=== PATIENT | female | born 1935 | race Caucasian/White ===

== ENCOUNTER 2020-09-12 17:16 | Emergency (ER) | payer MEDICARE, SELFPAY ==
--- NOTE | ~2020-09-12 | XR_ITS ---
EXAMINATION: XR KNEE, RIGHT CLINICAL INFORMATION: Fall with pain COMPARISON: None TECHNIQUE: Four views of the right knee. FINDINGS: Moderate-sized suprapatellar knee joint effusion. Tricompartmental degenerative changes seen more so in the lateral compartment where there is more significant joint space loss and subchondral sclerosis. Chondrocalcinosis is noted. I do not appreciate any acute superimposed fracture or dislocation on these degenerative changes. XR/XR knee RT 3V IMPRESSION: Tricompartmental degenerative changes without acute bony abnormality.
--- NOTE | ~2020-09-12 | XR_ITS ---
EXAMINATION: XR RIBS, RIGHT CLINICAL INFORMATION: Fall with right chest pain COMPARISON: None TECHNIQUE: 3 views of the right ribs were obtained. FINDINGS: Lungs are clear. No consolidation, pneumothorax, or pleural effusion. The cardiomediastinal silhouette and pulmonary vasculature are normal. Osseous structures are unremarkable. Ribs are intact. No displaced rib fractures are identified. XR/XR ribs RT min 3V w CXR1V IMPRESSION: No displaced rib fractures seen.
[2020-09-12 17:28] VITALS: BP 132/80; PULSE 82; RESP 16; TEMP 36.6; O2SAT 98; BMI 25.6
--- NOTE | 2020-09-12 17:47 | ED_ITS ---
HPI - Fall General Chief Complaint: Fall Stated Complaint: right sided pain/fall Time Seen by Provider: 09/12/20 17:45 Source: patient and EMS Mode of arrival: EMS Limitations: no limitations History of Present Illness HPI Narrative: 85-year-old female came in by ambulance for evaluation after fall. Patient lives home alone and usually ambulate with a cane at home, patient felt dizzy and lost balance fell down landing on her right side then the TV fell down but did not fall on her, patient declined any LOC before or after the fall, no head injury, no neck pain. Patient only complains of right side chest pain, and right knee pain. Patient was able to ambulate after the fall. Related Data Allergies Allergy/AdvReac Type Severity Reaction Status Date / Time No Known Allergies Allergy Verified 09/12/20 17:45 Review of Systems Review of Systems: All other systems are reviewed and are negative Constitutional: Reports as per HPI and Reports no additional constitutional complaints Eyes: Reports as per HPI and Reports no additional eye complaints Reports system reviewed and no additional complaints, except as documented Cardiovascular: Reports as per HPI and Reports no additional cardiovascular complaints Respiratory: Reports as per HPI and Reports no additional respiratory complaints Gastrointestinal: Reports as per HPI and Reports no additional gastrointestinal complaints Genitourinary: Reports no additional female genitourinary complaints Musculoskeletal: Reports no additional musculoskeletal complaints Skin/Breast: Reports system reviewed and no additional complaints, except as docu Psychiatric: Reports no additional psychiatric complaints Endocrine: Reports no additional endocrine complaints Hematologic/Lymphatic: Reports no additional hematologic/lymphatic complaints Allergic/Immunologic: Reports no additional allergic/immunologic complaints Reports system reviewed and no additional complaints, except as documented and Reports Abnormal speech present Physical Exam Vital Signs: Vital Signs: Last Vital Signs Temp 98 F 09/12/20 17:28 Pulse 69 09/12/20 18:44 Resp 18 09/12/20 18:44 BP 132/71 09/12/20 18:44 Pulse Ox 99 09/12/20 18:44 Body Mass Index 25.6 Vital signs have been reviewed as appeared to be correct. Blood pressure normal. Heart rate normal. Respiration rate normal. Temperature normal. Oxygen saturation normal. Appearance: Alert. Oriented X3. No acute distress. Head: Normal external exam. Normocephalic. Atraumatic. No Edmonds signs noted. No raccoon eyes noted Eyes: PERRLA. EOMI. Conjunctiva and sclera normal. Eyelids normal. ENT: TM's Normal. Pharynx normal. Uvula midline. Moist mucous membranes. No trismus noted. No drooling noted. No muffled voice noted. Neck: Normal inspection. Neck supple. FROM. No adenopathy. Thyroid Normal. No meningeal signs. No neck mass noted. CVS: Normal heart rate and rhythm. Heart sound normal. No murmurs noted. Pulses normal throughout. Respiratory: No respiratory distress. Painless inspiration. Breath sounds normal. No wheezes/rales/rhonchi noted. Right-sided chest tenderness, no step- off, no deformity. No accessory muscle usage noted or decreased air movement n oted. Abdomen: Soft and nontender. Bowel sounds normal in all 4 quadrants. No distention noted. No organomegaly noted. No visible injury noted. Back: No CVA tenderness. Full range of motion noted. Skin: Skin warm and dry. Normal skin color. Normal skin turgor. No rashes/lesions/lacerations noted. Extremities: Right knee tenderness, full range of motion but limited due to pain, no deformity, no step-off. Neuro: Oriented X 3. No motor deficit. No sensory deficit. Reflexes normal. Course Course Course Narrative: Assessment and plan. 85-year-old female came in after sustained a mechanical fall landing on her right side of the body only, patient has a right chest wall contusion right knee contusion. X-ray showed no acute fracture, patient able to ambulate in the emergency department normally using her cane. MDM - Fall Imaging Data Right knee x-ray: Radiologist's impression: Tricompartmental degenerative changes without acute bony abnormality. ? Right ribs/chest x-ray: Radiologist's impression: Lungs are clear. No consolidation, pneumothorax, or pleural effusion. The cardiomediastinal silhouette and pulmonary vasculature are normal. Osseous structures are unremarkable. Ribs are intact. No displaced rib fractures are identified. Discharge Plan Discharge Clinical Impression: Fall, Chest wall contusion, Contusion of knee, right Patient Disposition: Home, Self-Care Instructions: Contusion in Adults (ED) Additional Instructions: Follow-up with your PCP.
[2020-09-12 18:44] VITALS: BP 132/71; PULSE 69; RESP 18; O2SAT 99
[2020-09-12] MEDS: Acetaminophen 325 MG TABLET PO (18:48)
--- NOTE | 2020-09-12 18:49 | PC.NURSE ---
assumd care of patient from jesus addison. Client in bed. pending x ray results. cheif complaint of right rib pain right knee pain post fall. vitals wnl. nuero intact.
--- NOTE | 2020-09-12 19:19 | PC.NURSE ---
PT AMBULATED WITH CANE WITH PAIN BUT AMBULATED WILL. VISUALIZED BY DR LMA.
--- NOTE | 2020-09-12 19:37 | PC.NURSE ---
discussed with dr carrington that client was confused. client did not recall getting yrui bandage on right knee. Client stated she did not want rehab. Dr carrington feels comfortable sending client home without anyone at home.
== END 2020-09-12 19:37 | disposition home or self-care (01) ==
LOC: HO.ED 19:19
PROVIDERS: Emergency Provider Emergency Medicine
DX: S20.213A Contusion of bilateral front wall of thorax, initial encounter (principal); S80.01XA Contusion of right knee, initial encounter; M25.561 Pain in right knee; R07.81 Pleurodynia; W01.190A Fall on same level from slipping, tripping and stumbling with subsequent striking against furniture, initial encounter; Y93.9 Activity, unspecified; Y92.009 Unspecified place in unspecified non-institutional (private) residence as the place of occurrence of the external cause; Y99.9 Unspecified external cause status; Z79.899 Other long term (current) drug therapy
CPT/HCPCS: 71101; 73562; 99284

== ENCOUNTER 2020-11-19 08:05 | Emergency (ER) | payer MEDICARE, SELFPAY ==
--- NOTE | ~2020-11-19 | CT_ITS ---
EXAMINATION: CT ABDOMEN AND PELVIS WITH CONTRAST CLINICAL INFORMATION: Painless hematuria. COMPARISON: None TECHNIQUE: Multidetector volumetric images were obtained from the superior aspect of the liver through the pubic symphysis following administration 85 mL of Omnipaque 350 intravenous contrast. Sagittal and coronal reformatted images were obtained on the technologist's workstation. This CT examination was performed using dose optimization techniques as appropriate, variously including the following: *Automated exposure control *Adjustment of mA and/or kV according to patient size (this includes techniques or standardized protocols for targeted exams where dose is matched to indication/reason for exam; i.e. extremities or head) *Use of iterative reconstruction technique DLP: 411 mGy-cm FINDINGS: LUNG BASES: Hazy opacity of minimal atelectasis in dependent aspect of each lower lobe. There are a few scattered linear opacities of scarring or atelectasis at the bases. No consolidation or pleural effusion. HEPATOBILIARY: Liver has normal size and contour. Small, 0.2 cm calcification (consistent with granuloma) is observed near the hepatic dome. No suspicious liver lesion or intrahepatic bile duct dilatation. Gallbladder is not definitively seen. Correlate for history of cholecystectomy. There appears to be minimal pneumobilia in the region of the cystic duct. PANCREAS: Pancreas is atrophied. No edema, pancreatic ductal dilatation or mass. SPLEEN: Normal. ADRENAL GLANDS: Normal. KIDNEYS AND URETERS: The kidneys a normal in size and enhance symmetrically. No solid mass or perinephric fluid. No urolithiasis or hydroureteronephrosis. The ureters are grossly normal. BLADDER: Normal. No calculi or wall thickening. BOWEL AND PERITONEUM: No dilated bowel loops. Diverticula of the descending and sigmoid colon without diverticulitis. The appendix is identified; however, no inflammatory changes in the right lower quadrant. No ascites or pneumoperitoneum. ABDOMINAL WALL: Unremarkable. VASCULATURE: Atherosclerotic calcification of the abdominal aorta without aneurysm. LYMPH NODES: No pathologic sized lymph nodes in the abdomen or pelvis. No inguinal lymphadenopathy. PELVIC VISCERA: The uterus and adnexa are unremarkable. No pelvic mass or free fluid. SKELETAL: Bones appear to be diffusely osteoporotic. Mild dextrocurvature of the mildly degenerated lumbar spine CT/CT abdomen pelvis w con IMPRESSION: * No specific source of hematuria is identified. No evidence of nephrolithiasis, hydronephrosis or urinary tract tumor. * Diverticulosis of the descending and sigmoid colon without diverticulitis. * Gallbladder is not well seen. It could be completely collapsed or surgically absent. Correlate for history of cholecystectomy. There appears to be minimal pneumobilia in the expected location of the cystic duct.
[2020-11-19 08:12] VITALS: BP 140/90; PULSE 70; O2SAT 95
[2020-11-19 08:17] VITALS: BP 129/64; PULSE 61; RESP 18; TEMP 36.5; O2SAT 95; BMI 23.1
[2020-11-19 09:01] VITALS: BP 114/65; PULSE 59
[2020-11-19 09:08] LABS: MANUAL DIFF FLAG NO
[2020-11-19 09:09] LABS: Basophils Percent Auto 0.4 % (0-2); Eosinophils Absolute Auto 0.2 X10*3/uL (0.0-0.4); Eosinophils Percent Auto 3.4 % (0-4); Imm Gran Abs Auto 0.01 X10*3/uL (0.00-0.03); Imm Gran Pct Auto 0.2 % (0.0-0.4); Lymphocytes Absolute Auto 1.4 X10*3/uL (1.2-4.9); Lymphocytes Percent Auto 27.6 % (20-40); Mean Corpuscular HGB Conc 31.3 g/dl (31.0-35.0); Mean Corpuscular Hemoglobin 28.4 pg (27.0-33.0); Mean Corpuscular Volume 90.9 fL (80-98); Mean Platelet Volume 8.6 fL (9.4-12.3); Monocytes Absolute Auto 0.4 X10*3/uL (0.1-1.2); Monocytes Percent Auto 8.7 % (2-11); Neutrophils Percent Auto 59.7 % (45-73); Platelet Count 272 X10*3/uL (160-400); Red Blood Count 3.52 X10*6/uL (4.20-5.50); Red Cell Distribution Width 18.4 % (11.0-16.0)
[2020-11-19 09:16] LABS: INTERNATIONAL NORM RATIO 1.1 (0.9-1.1); Prothrombin Time 12.7 SEC (9.9-13.0)
[2020-11-19 09:28] LABS: Alanine Aminotransferase 8 U/L (0-31); Albumin Level 3.5 g/dL (3.5-5.0); Alkaline Phosphatase 55 U/L (39-117); Anion Gap 11 (12-20); Aspartate Amino Transferase 21 U/L (5-31); Bilirubin Total 0.4 mg/dL (0.0-1.0); Blood Urea Nitrogen 5 mg/dL (9-16); Calcium 8.4 mg/dL (8.4-10.2); Carbon Dioxide 28 mmol/L (22-29); Chloride 104 mmol/L (96-108); Creatinine Clr Calc Pharmacy 41.9; Estimated Glomerular Filt Rate > 60; Glucose Random 90 mg/dL (60-115); Magnesium 2.2 mg/dL (1.6-2.6); Potassium 3.7 mmol/L (3.3-5.1); Sodium 139 mmol/L (135-145); Total Protein 6.9 g/dL (6.5-8.0)
[2020-11-19 09:41] VITALS: BP 124/66; PULSE 62
--- NOTE | 2020-11-19 09:42 | PC.NURSE ---
Pt oob to give urine sample. Urine appears pale yellow but juan carlos blood noted in toilet. Viable hemorrhoids from rectum. When rectal area is wiped there is bright red blood. Pt denies pain.
[2020-11-19 09:57] LABS: Appearance Urine HAZY; Color Urine STRAW; Glucose Urine UA NEG (NEG); Leukocyte Esterase Urine NEG (NEG); Nitrite Urine NEG (NEG); PH 7.5 (5.0-8.0); Specific Gravity - Urine <= 1.005 (1.005-1.025); UACC Culture Trigger NO; Urine Blood 1+ (NEG); Urine Ketones NEG (NEG); Urine Protein NEG (NEG-TRACE)
[2020-11-19 10:06] LABS: WBC Urine 0-2 /HPF (0-4)
[2020-11-19 10:07] LABS: Bacteria Urine 2+ /LPF; RBC Urine 0-2 /HPF (0); Squamous Epithelial Cell Urine 4+ /LPF
[2020-11-19] MEDS: iohexoL 350 MG/ML 100 ML INFUS..BTL 85 ML IV (10:59)
[2020-11-19] MEDS: ALPRAZolam 0.5 MG TABLET PO (11:08)
[2020-11-19 11:11] VITALS: BP 116/62; PULSE 63; RESP 18; TEMP 36.6; O2SAT 95
--- NOTE | 2020-11-19 11:11 | PC.NURSE ---
patient a&ox3, vss, pt medicated per order for anxiety, call james within reach, will continue to monitor.
--- NOTE | 2020-11-19 11:15 | ED_ITS ---
HPI - GI Bleed General Chief complaint: Urogenital-Female Stated complaint: BLOOD IN URINE Time Seen by Provider: 11/19/20 08:35 Source: patient Mode of arrival: ambulatory Limitations: no limitations History of Present Illness HPI Narrative: 85-year-old female to the ED with complaints of hematuria versus GI bleed that she noted last night. She reports that last night she woke up to urinate and she noted she had blood in her underwear and when she urinated she had bright red blood in the toilet. She reports she has a history of hemorrhoids although she does not believe they have been bleeding recently and s he is unsure if it is from her hemorrhoids or vaginal bleeding. She denies any fevers, dizziness, headaches, neck pain/stiffness, chest pain or shortness of breath, dyspnea on exertion, orthopnea, palpitations, abdominal pain, back pain, dysuria, black or bloody stools, weakness, recent travel or sick contacts or any other symptoms complaints or concerns at this time. She denies being on any blo od thinners. MD complaint: other (Hematuria versus GI bleed) Onset (ago): hour(s) (Since last night) Pain Consistency: constant Severity: mild Exacerbating factors: other (Urination) Associated symptoms: denies other symptoms Treatments Prior to Arrival: none Related Data Allergies Allergy/AdvReac Type Severity Reaction Status Date / Time No Known Allergies Allergy Verified 11/19/20 08:49 Review of Systems Review of Systems: Constitutional : No Weight loss, No Fever, No Chills, No Night Sweats, No Fatigue, NoMalaise ENT/Mouth: No ear pain, No sore throat, No Difficulty swallowing Cardiovascular : No Chest Pain, No SOB, No Dyspnea on Exertion, No Orthopnea, NoEdema, No Palpitations Respiratory : No Cough, No Sputum, No Wheezing, No Dyspnea Gastrointestinal : Positive hematuria versus rectal bleeding, No Nausea, No Vomiting, No abdominal pain, No Diarrhea, No blood streaked emesis, No coffee- ground emesis, No gross hematemesis, No blood streak stool, No gross hemato chezia, No Melena Genitourinary : No irregular bleeding, No Dysuria, No Urinary Frequency, No Urinary Incontinence, No Urgency, No Flank Pain Musculoskeletal : No joint pain, No Myalgias, No Joint Swelling Skin : No Skin Lesions, No rash Neuro : No Weakness, No Numbness, No Paresthesias, No Loss of Consciousness, NoDizziness, No Headache Psych : No Social Issues, Heme/Lymph: No Bruising, No Bleeding,No Lymphadenopathy Endocrine : No Polyuria, No Polydipsia, No Temperature Intolerance Yes all other systems are reviewed and are negative [facility] Past Medical History Attestation statement: The following information was validated with the patient. Social History Social History Alcohol intake: never Patient Tobacco Use Status: Former Tobacco user Use of substances other than those prescribed or required for medical reasons: No Advance Directives: No Advance Directives Information Provided: No Physical Exam Vital Signs: Vital Signs: Last Vital Signs Temp 97.9 F 11/19/20 11:11 Pulse 63 11/19/20 11:11 Resp 18 11/19/20 11:11 BP 116/62 11/19/20 11:11 Pulse Ox 95 11/19/20 11:11 Body Mass Index 23.1 vital signs have been reviewed as normal and appeared to be correct. Blood pressure normal. Heart rate normal. Respiration rate normal. Temperature normal. Oxygen saturation normal. Appearance: Alert. Oriented X3. No acute distress. Head: Normal external exam. Normocephalic. Eyes: PERRLA. EOMI. Conjunctiva and sclera normal. Eyelids normal. ENT: Pharynx normal. Uvula midline. Moist mucous membranes. Neck: Normal inspection. Neck supple. FROM. No adenopathy. No meningeal signs. CVS: Normal heart rate and rhythm. Heart sound normal. No murmurs noted. Pulses normal throughout. Respiratory: No respiratory distress. Painless inspiration. Breath sounds normal. No wheezes/rales/rhonchi noted. Chest nontender. No accessory muscle usage noted or decreased air movement noted. Abdomen: Soft and nontender. Nondistended. No guarding. No rigidity. Bowel sounds normal in all 4 quadrants. No distention noted. No organomegaly noted. No visible injury noted. No rebound tenderness. Negative Rovsing sign. Negative obturator's sign. Negative psoas sign. Negative Pinzon sign. : Exam patient noted to have external hemorrhoids they do not appear thrombosed or incarcerated and there is no active bleeding or foreign bodies noted. Back: No CVA tenderness. Full range of motion noted. Skin: Skin warm and dry. Normal skin color. Normal skin turgor. No rashes/lesions/lacerations noted. Extremities: Extremities exhibit normal range of motion. Extremities nontender. Neuro: Oriented X 3. No motor deficit. No sensory deficit. Reflexes normal. Normal steady gait. Course Course Course Narrative: 8:45am - 85-year-old female to the ED with complaints of hematuria versus GI bleed that she noted last night. She reports that last night she woke up to urinate and she noted she had blood in her underwear and when she urinated she had bright red blood in the toilet. She reports she has a history of hemorrhoids although she does not believe they have been bleeding recently and she is unsure if it is from her hemorrhoids or vaginal bleeding. Plan: Labs, UA, stool occult, CT scan abdomen pelvis with IV contrast and re- evaluate. Reevaluation(s) Reevaluation #1: - labs return patient with anemia with an H&H of 10/32 no comparisons in our system - anion gap 11. BUN 5. Otherwise all other labs are within normal limits. UA revealed +1 blood otherwise no evidence of UTI. - Stool occult is pending at this time. - CT scan abdomen pelvis with IV contrast revealed minimal pneumobilia the expected location of the cystic duct and the gallbladder is not well seen otherwise no other acute processes - therefore I went in and re-evaluated the patient and she again does not have any tenderness to the abdomen at all. Her abdomen is soft and nontender. And she denies ever having her gallbladder removed and I do not see any surgical scars on her abdomen. - therefore consulted with Dr. Townsend the general surgeon to see the sign ificant of minimal pneumobilia the expected location of the cystic duct if the patient is not having any abdominal pain she does not have an elevated white blood cell count. - also will recheck the CBC to evaluate if the patient's anemia is getting worse as she has been here for 4 hours or more at this time. She does not have any active vaginal bleeding, hematuria or GI bleeding at this time. Time: 12:30 Reevaluation #2: - patient's repeat H&H has improved her hemoglobin/hematocrit is now 10.7/33.8 - patient is no longer bleeding rectally - I spoke to Dr. Townsend about her CT scan and he reported that this is just an incidental finding that there is nothing that we need to do at this time for her incidental finding as she does not have an elevated white blood cell count, she is not having any abdominal pain therefore will have her follow up - patient will have to follow up with GI for further evaluation treatment although is stable to be discharged at this time as she has been up working without any complaints of dizziness or shortness of breath her vitals are stable within normal limits her labs are within normal limits and she is no longer bleeding at this time therefore she is requesting to be discharged. Will DC home with instructions to return if any new or worsening symptoms and to follow- up with PCP/GI. Patient understands agrees with this plan. Time: 13:37 [facility] - GI Bleed Medical Records Attestation: I reviewed the patient's medical records. Lab Data Attestation: I reviewed the patient's lab results. Result diagrams: 11/19/20 12:50 11/19/20 09:00 Labs: Lab Results 11/19/20 11/19/20 11/19/20 Range/Units 09:00 09:00 09:00 WBC 5.0 (4.8-10.8) X10*3/uL RBC 3.52 L (4.20-5.50) X10*6/uL Hgb 10.0 L (12.0-16.0) g/dl Hct 32.0 L (37-47) % MCV 90.9 (80-98) fL MCH 28.4 (27.0-33.0) pg MCHC 31.3 (31.0-35.0) g/dl RDW 18.4 H (11.0-16.0) % Plt Count 272 (160-400) X10*3/uL MPV 8.6 L (9.4-12.3) fL Immature Gran % (Auto) 0.2 (0.0-0.4) % Neut % (Auto) 59.7 (45-73) % Lymph % (Auto) 27.6 (20-40) % [place] % (Auto) 8.7 (2-11) % Eos % (Auto) 3.4 (0-4) % Baso % (Auto) 0.4 (0-2) % Lymph # (Auto) 1.4 (1.2-4.9) X10*3/uL [place] # (Auto) 0.4 (0.1-1.2) X10*3/uL Eos # (Auto) 0.2 (0.0-0.4) X10*3/uL Baso # (Auto) 0.0 (0.0-0.2) X10*3/uL Abs Immat Gran (auto) 0.01 (0.00-0.03) X10*3/uL Absolute Neuts (auto) 3.0 (2.0-8.3) X10*3/uL Absolute Nucleated RBC 0.000 (0.0-0.012) X10*3/uL Nucleated RBC % (auto) 0.0 (0.0-0.2) /100WBC PT 12.7 (9.9-13.0) SEC INR 1.1 (0.9-1.1) Sodium 139 (135-145) mmol/L Potassium 3.7 (3.3-5.1) mmol/L Chloride 104 (96-108) mmol/L Carbon Dioxide 28 (22-29) mmol/L Anion Gap 11 L (12-20) BUN 5 L (9-16) mg/dL Creatinine 0.79 (0.5-1.4) mg/dL Estim Creat Clear Calc 41.9 Estimated GFR > 60 Random Glucose 90 (60-115) mg/dL Calcium 8.4 (8.4-10.2) mg/dL Magnesium 2.2 (1.6-2.6) mg/dL Total Bilirubin 0.4 (0.0-1.0) mg/dL AST 21 (5-31) U/L ALT 8 (0-31) U/L Alkaline Phosphatase 55 (39-117) U/L Total Protein 6.9 (6.5-8.0) g/dL Albumin 3.5 (3.5-5.0) g/dL Urine Color Urine Appearance Urine pH (5.0-8.0) Ur Specific [place] (1.005-1.025) Urine Protein (NEG-TRACE) MG/DL Urine Glucose (UA) (NEG) MG/DL Urine Ketones (NEG) MG/DL Urine Blood (NEG) Urine Nitrite (NEG) Ur Leukocyte Esterase (NEG) Urine RBC (0) /HPF Urine WBC (0-4) /HPF Ur Squamous Epith Cells /LPF Urine Bacteria /LPF Stool Occult Blood (NEGATIVE) 11/19/20 11/19/20 11/19/20 Range/Units 09:42 12:50 13:37 WBC 5.7 (4.8-10.8) X10*3/uL RBC 3.72 L (4.20-5.50) X10*6/uL Hgb 10.7 L (12.0-16.0) g/dl Hct 33.8 L (37-47) % MCV 90.9 (80-98) fL MCH 28.8 (27.0-33.0) pg MCHC 31.7 (31.0-35.0) g/dl RDW 18.6 H (11.0-16.0) % Plt Count 295 (160-400) X10*3/uL MPV 8.7 L (9.4-12.3) fL Immature Gran % (Auto) 0.3 (0.0-0.4) % Neut % (Auto) 58.3 (45-73) % Lymph % (Auto) 29.4 (20-40) % [place] % (Auto) 8.4 (2-11) % Eos % (Auto) 3.1 (0-4) % Baso % (Auto) 0.5 (0-2) % Lymph # (Auto) 1.7 (1.2-4.9) X10*3/uL [place] # (Auto) 0.5 (0.1-1.2) X10*3/uL Eos # (Auto) 0.2 (0.0-0.4) X10*3/uL Baso # (Auto) 0.0 (0.0-0.2) X10*3/uL Abs Immat Gran (auto) 0.02 (0.00-0.03) X10*3/uL Absolute Neuts (auto) 3.3 (2.0-8.3) X10*3/uL Absolute Nucleated RBC 0.000 (0.0-0.012) X10*3/uL Nucleated RBC % (auto) 0.0 (0.0-0.2) /100WBC PT (9.9-13.0) SEC INR (0.9-1.1) Sodium (135-145) mmol/L Potassium (3.3-5.1) mmol/L Chloride (96-108) mmol/L Carbon Dioxide (22-29) mmol/L Anion Gap (12-20) BUN (9-16) mg/dL Creatinine (0.5-1.4) mg/dL Estim Creat Clear Calc Estimated GFR Random Glucose (60-115) mg/dL Calcium (8.4-10.2) mg/dL Magnesium (1.6-2.6) mg/dL Total Bilirubin (0.0-1.0) mg/dL AST (5-31) U/L ALT (0-31) U/L Alkaline Phosphatase (39-117) U/L Total Protein (6.5-8.0) g/dL Albumin (3.5-5.0) g/dL Urine Color STRAW Urine Appearance HAZY Urine pH 7.5 (5.0-8.0) Ur Specific [place] <= 1.005 (1.005-1.025) Urine Protein NEG (NEG-TRACE) MG/DL Urine Glucose (UA) NEG (NEG) MG/DL Urine Ketones NEG (NEG) MG/DL Urine Blood 1+ H (NEG) Urine Nitrite NEG (NEG) Ur Leukocyte Esterase NEG (NEG) Urine RBC 0-2 (0) /HPF Urine WBC 0-2 (0-4) /HPF Ur Squamous Epith Cells 4+ /LPF Urine Bacteria 2+ /LPF Stool Occult Blood POSITIVE (NEGATIVE) Imaging Data CT scan abdomen pelvis with IV contrast: Attestation: I personally reviewed and interpreted this imaging study as follows: Radiologist's impression: FINDINGS: LUNG BASES: Hazy opacity of minimal atelectasis in dependent aspect of each lower lobe. There are a few scattered linear opacities of scarring or atelectasis at the bases. No consolidation or pleural effusion.? HEPATOBILIARY: Liver has normal size and contour. Small, 0.2 cm calcification (consistent with granuloma) is observed near the hepatic dome. No suspicious liver lesion or intrahepatic bile duct dilatation. Gallbladder is not definitively seen. Correlate for history of cholecystectomy. There appears to be minimal pneumobilia in the region of the cystic duct. PANCREAS: Pancreas is atrophied. No edema, pancreatic ductal dilatation or mass.? SPLEEN: Normal.? ADRENAL GLANDS: Normal.? KIDNEYS AND URETERS: The kidneys a normal in size and enhance symmetrically. No solid mass or perinephric fluid. No urolithiasis or hydroureteronephrosis. The ureters are grossly normal. BLADDER:? Normal. No calculi or wall thickening. BOWEL AND PERITONEUM: No dilated bowel loops. Diverticula of the descending and sigmoid colon without diverticulitis. The appendix is identified; however, no inflammatory changes in the right lower quadrant. No ascites or pneumoperitoneum. ABDOMINAL WALL: Unremarkable.? VASCULATURE: Atherosclerotic calcification of the abdominal aorta without aneurysm. LYMPH NODES: No pathologic sized lymph nodes in the abdomen or pelvis. No inguinal lymphadenopathy. PELVIC VISCERA: The uterus and adnexa are unremarkable. No pelvic mass or free fluid. SKELETAL: Bones appear to be diffusely osteoporotic. Mild dextrocurvature of the mildly degenerated lumbar spine? CT/CT abdomen pelvis w con IMPRESSION: *? No specific source of hematuria is identified. No evidence of nephrolithiasis, hydronephrosis or urinary tract tumor. *? Diverticulosis of the descending and sigmoid colon without diverticulitis. *? Gallbladder is not well seen. It could be completely collapsed or surgically absent. Correlate for history of cholecystectomy. There appears to be minimal pneumobilia in the expected location of the cystic duct. Critical Care Time Critical Care Time Critical Care Time: Yes Total Critical Care Time: 60 Attestation: I personally attest to this time spent taking care of the patient Discharge Plan Discharge Clinical Impression: Occult GI bleeding, Anemia Patient Disposition: Home, Self-Care Instructions: Anemia (ED), [facility] (DC) Referrals: Cris Guillen MD [Physician] - 2 days Physician,Unknown J [Primary Care Provider] - 2 days (your pcp) Interventions: ED Discharge Assessment Last Done: 11/19/20 14:24 Discharge Date/Time: 11/19/20 14:26 Print Language: Chadian
--- NOTE | 2020-11-19 11:57 | PC.NURSE ---
assisted the patient going to the bathroom and the patient did not bled. She wa excited that this may be a sign that she may be getting better.
[2020-11-19 12:56] LABS: MANUAL DIFF FLAG NO
[2020-11-19 12:57] LABS: Basophils Percent Auto 0.5 % (0-2); Eosinophils Absolute Auto 0.2 X10*3/uL (0.0-0.4); Eosinophils Percent Auto 3.1 % (0-4); Hematocrit 33.8 % (37-47); Hemoglobin 10.7 g/dl (12.0-16.0); Imm Gran Abs Auto 0.02 X10*3/uL (0.00-0.03); Imm Gran Pct Auto 0.3 % (0.0-0.4); Lymphocytes Absolute Auto 1.7 X10*3/uL (1.2-4.9); Lymphocytes Percent Auto 29.4 % (20-40); Mean Corpuscular HGB Conc 31.7 g/dl (31.0-35.0); Mean Corpuscular Hemoglobin 28.8 pg (27.0-33.0); Mean Corpuscular Volume 90.9 fL (80-98); Mean Platelet Volume 8.7 fL (9.4-12.3); Monocytes Absolute Auto 0.5 X10*3/uL (0.1-1.2); Monocytes Percent Auto 8.4 % (2-11); Neutrophils Absolute Auto 3.3 X10*3/uL (2.0-8.3); Neutrophils Percent Auto 58.3 % (45-73); Platelet Count 295 X10*3/uL (160-400); Red Blood Count 3.72 X10*6/uL (4.20-5.50); Red Cell Distribution Width 18.6 % (11.0-16.0); White Blood Count 5.7 X10*3/uL (4.8-10.8)
[2020-11-19 13:40] LABS: OBS Int Ctl Valid YES; OBS1 POSITIVE (NEGATIVE)
== END 2020-11-19 14:26 | disposition home or self-care (01) ==
PROVIDERS: Physician Assistant Medical; Emergency Provider Emergency Medicine
DX: K92.2 Gastrointestinal hemorrhage, unspecified (principal); D64.9 Anemia, unspecified; R93.5 Abnormal findings on diagnostic imaging of other abdominal regions, including retroperitoneum
CPT/HCPCS: 36415; 74177; 80053; 81001; 82272; 83735; 85025; 85610; 99284; 99291; Q9967

== ENCOUNTER 2021-04-21 06:43 | Emergency (ER) | payer MEDICARE, SELFPAY ==
--- NOTE | ~2021-04-21 | XR_ITS ---
EXAMINATION: XR HIP, LEFT CLINICAL INFORMATION: Left hip pain COMPARISON: CT 11/19/2020. TECHNIQUE: AP pelvis with AP and frog-leg lateral views of the left hip. FINDINGS: Diffuse osteopenia. Hip joint spaces are maintained. No displaced fracture or dislocation seen. 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 XR/XR hip LT w PEL1V IMPRESSION: Osteopenia but no acute osseous abnormality seen. If there continues to be high clinical concern for a radiographically occult fracture based on physical exam, consider cross-sectional imaging.
[2021-04-21 07:24] VITALS: BP 124/69; PULSE 72; RESP 16; TEMP 35.9; O2SAT 93; BMI 23.8
--- NOTE | 2021-04-21 07:28 | ED_ITS ---
HPI - Fall General Chief Complaint: Extremity Problem Stated Complaint: FALL Time Seen by Provider: 04/21/21 06:57 Source: patient and EMS Mode of arrival: EMS Limitations: no limitations History of Present Illness HPI Narrative: 86 years old female came in by ambulance for evaluation after a mechanical fall. This is an 86 years old female who lives home by herself mostly independently, patient described a mechanical fall last night at home patient was wearing is slippery socks patient slipped and fell landed on her buttock, patient decline hitting her head or neck, could not get herself of the floor, patient remained on the floor for 2 hours then called medic Alert for the ambulance to come and help her, patient otherwise complains of no pain or obvious injury after the fall. Patient lives at home by herself get limited help at home. Related Data Allergies Allergy/AdvReac Type Severity Reaction Status Date / Time No Known Allergies Allergy Verified 11/19/20 08:49 Review of Systems Review of Systems: All other systems are reviewed and are negative Constitutional: Reports as per HPI and Reports no additional constitutional complaints Eyes: Reports as per HPI and Reports no additional eye complaints Reports system reviewed and no additional complaints, except as documented Cardiovascular: Reports as per HPI and Reports no additional cardiovascular complaints Respiratory: Reports as per HPI and Reports no additional respiratory complaints Gastrointestinal: Reports as per HPI and Reports no additional gastrointestinal complaints Genitourinary: Reports no additional female genitourinary complaints Musculoskeletal: Reports no additional musculoskeletal complaints Skin/Breast: Reports system reviewed and no additional complaints, except as docu Psychiatric: Reports no additional psychiatric complaints Endocrine: Reports no additional endocrine complaints Hematologic/Lymphatic: Reports no additional hematologic/lymphatic complaints Allergic/Immunologic: Reports no additional allergic/immunologic complaints Reports system reviewed and no additional complaints, except as documented and Reports Abnormal speech present [facility] Social History Social History Alcohol intake: never Patient Tobacco Use Status: Former Tobacco user Advance Directives: No Advance Directives Information Provided: No Physical Exam Vital Signs: Vital Signs: Last Vital Signs Temp 96.6 F L 04/21/21 07:24 Pulse 72 04/21/21 07:24 Resp 16 04/21/21 07:24 BP 124/69 04/21/21 07:24 Pulse Ox 93 04/21/21 07:24 BMI result Body Mass Index 23.8 Vital signs have been reviewed as appeared to be correct. Blood pressure normal. Heart rate normal. Respiration rate normal. Temperature normal. Oxygen saturation normal. Appearance: Alert. Oriented X3. No acute distress. Head: Normal external exam. Normocephalic. Atraumatic. No Edmonds signs noted. No raccoon eyes noted Eyes: PERRLA. EOMI. Conjunctiva and sclera normal. Eyelids normal. ENT: TM's Normal. Pharynx normal. Uvula midline. Moist mucous membranes. No trismus noted. No drooling noted. No muffled voice noted. Neck: Normal inspection. Neck supple. FROM. No adenopathy. Thyroid Normal. No meningeal signs. No neck mass noted. CVS: Normal heart rate and rhythm. Heart sound normal. No murmurs noted. Pulses normal throughout. Respiratory: No respiratory distress. Painless inspiration. Breath sounds normal. No wheezes/rales/rhonchi noted. Chest nontender. No accessory muscle usage noted or decreased air movement noted. Abdomen: Soft and nontender. Bowel sounds normal in all 4 quadrants. No distention noted. No organomegaly noted. No visible injury noted. Back: No CVA tenderness. Full range of motion noted. Skin: Skin warm and dry. Normal skin color. Normal skin turgor. No rashes/lesions/lacerations noted. Extremities: No lower extremity edema. Extremities exhibit normal range of motion. Extremities nontender. Neuro: Oriented X 3. Cranial nerve exam: II-XII are grossly intact No motor deficit. No sensory deficit. Reflexes normal. Course Course Course Narrative: Assessment and plan. 86-year-old female who lives home independently presented after mechanical fall at home, patient have normal vital signs, physical exam is not revealing any injuries, x-ray of the pelvis and hip is unremarkable, patient was observed in the emergency department for 3 hours with normal exam. Patient would like to go home and declining physical therapy evaluation or temporary placement in rehab. Will discharge the patient home. MDM - Fall Lab Data Attestation: I reviewed the patient's lab results. Result diagrams: 04/21/21 08:34 04/21/21 08:34 Labs: Lab Results 04/21/21 04/21/21 04/21/21 Range/Units 08:34 08:34 08:34 WBC 8.0 (4.8-10.8) X10*3/uL RBC 3.78 L (4.20-5.50) X10*6/uL Hgb 12.3 (12.0-16.0) g/dl Hct 37.8 (37.0-47.0) % MCV 100.0 H (80.0-98.0) fL MCH 32.5 (27.0-33.0) pg MCHC 32.5 (31.0-35.0) g/dl RDW 15.7 (11.0-16.0) % Plt Count 184 (160-400) X10*3/uL MPV 9.1 L (9.4-12.3) fL Immature Gran % (Auto) 0.3 (0.0-0.4) % Neut % (Auto) 70.0 (45-73) % Lymph % (Auto) 22.1 (20-40) % [place] % (Auto) 6.6 (2-11) % Eos % (Auto) 0.5 (0-4) % Baso % (Auto) 0.5 (0-2) % Lymph # (Auto) 1.8 (1.2-4.9) X10*3/uL [place] # (Auto) 0.5 (0.1-1.2) X10*3/uL Eos # (Auto) 0.0 (0.0-0.4) X10*3/uL Baso # (Auto) 0.0 (0.0-0.2) X10*3/uL Abs Immat Gran (auto) 0.02 (0.00-0.03) X10*3/uL Absolute Neuts (auto) 5.6 (2.0-8.3) x10*3/uL Absolute Nucleated RBC 0.000 (0.0-0.012) X10*3/uL Nucleated RBC % (auto) 0.0 (0.0-0.2) /100WBC Sodium 142 (135-145) mmol/L Potassium 3.4 (3.3-5.1) mmol/L Chloride 103 (96-108) mmol/L Carbon Dioxide 33 H (22-29) mmol/L Anion Gap 9 L (12-20) BUN 7 L (9-16) mg/dL Creatinine 0.77 (0.5-1.4) mg/dL Estim Creat Clear Calc 42.2 Estimated GFR > 60 Random Glucose 91 (60-115) mg/dL Calcium 9.1 D (8.4-10.2) mg/dL Total Bilirubin 0.7 (0.0-1.0) mg/dL Direct Bilirubin 0.2 (0.0-0.5) mg/dL AST 19 (5-31) U/L ALT 9 (0-31) U/L Alkaline Phosphatase 40 D (39-117) U/L Total Creatine Kinase 131 (26-140) U/L Troponin I High Sens 5.3 (<3.5-17.0) ng/L Total Protein 6.9 (6.5-8.0) g/dL Albumin 3.8 (3.5-5.0) g/dL Lipase 19 (8-78) U/L Imaging Data Pelvis and left hip x-ray: Attestation: I personally reviewed and interpreted this imaging study as follows: Radiologist's impression: Osteopenia but no acute osseous abnormality seen. If there continues to be high clinical concern for a radiographically occult fracture based on physical exam, consider cross-sectional imaging. Discharge Plan Discharge Clinical Impression: Accident due to mechanical fall without injury Patient Disposition: Home, Self-Care Instructions: Fall Prevention (ED) Referrals: Physician,Dot J [Primary Care Provider] - 2 days
[2021-04-21 08:38] LABS: Basophils Percent Auto 0.5 % (0-2); Eosinophils Percent Auto 0.5 % (0-4); Hematocrit 37.8 % (37.0-47.0); Hemoglobin 12.3 g/dl (12.0-16.0); Imm Gran Abs Auto 0.02 X10*3/uL (0.00-0.03); Imm Gran Pct Auto 0.3 % (0.0-0.4); Lymphocytes Absolute Auto 1.8 X10*3/uL (1.2-4.9); Lymphocytes Percent Auto 22.1 % (20-40); MANUAL DIFF FLAG NO; Mean Corpuscular HGB Conc 32.5 g/dl (31.0-35.0); Mean Corpuscular Hemoglobin 32.5 pg (27.0-33.0); Mean Platelet Volume 9.1 fL (9.4-12.3); Monocytes Absolute Auto 0.5 X10*3/uL (0.1-1.2); Monocytes Percent Auto 6.6 % (2-11); Neutrophils Absolute Auto 5.6 x10*3/uL (2.0-8.3); Platelet Count 184 X10*3/uL (160-400); Red Blood Count 3.78 X10*6/uL (4.20-5.50); Red Cell Distribution Width 15.7 % (11.0-16.0)
[2021-04-21 09:02] LABS: Troponin-I High Sensitivity 5.3 ng/L (<3.5-17.0)
[2021-04-21 09:16] LABS: Alanine Aminotransferase 9 U/L (0-31); Albumin Level 3.8 g/dL (3.5-5.0); Alkaline Phosphatase 40 U/L (39-117); Anion Gap 9 (12-20); Aspartate Amino Transferase 19 U/L (5-31); Bilirubin Direct 0.2 mg/dL (0.0-0.5); Bilirubin Total 0.7 mg/dL (0.0-1.0); Blood Urea Nitrogen 7 mg/dL (9-16); Calcium 9.1 mg/dL (8.4-10.2); Carbon Dioxide 33 mmol/L (22-29); Chloride 103 mmol/L (96-108); Creatinine Clr Calc Pharmacy 42.2; Estimated Glomerular Filt Rate > 60; Glucose Random 91 mg/dL (60-115); Lipase 19 U/L (8-78); Potassium 3.4 mmol/L (3.3-5.1); Sodium 142 mmol/L (135-145); Total Protein 6.9 g/dL (6.5-8.0)
[2021-04-21 10:05] VITALS: BP 150/84; PULSE 60; RESP 15; TEMP 36.5; O2SAT 95
== END 2021-04-21 11:02 | disposition home or self-care (01) ==
PROVIDERS: Emergency Provider Emergency Medicine
DX: Z04.3 Encounter for examination and observation following other accident (principal); Z91.81 History of falling
CPT/HCPCS: 36415; 73502; 80048; 80076; 82550; 83690; 84484; 85025; 99283; 99284

== ENCOUNTER 2021-05-07 17:34 | Emergency (ER) | payer MEDICARE, SELFPAY ==
[2021-05-07 17:47] VITALS: BP 158/82; PULSE 82; O2SAT 99
--- NOTE | 2021-05-07 18:36 | ED_ITS ---
HPI - Anxiety General Chief Complaint: Anxiety Stated Complaint: ANXIOUS ABOUT POSSIBLY MISSING MED IN AM PER EMS Time Seen by Provider: 05/07/21 18:29 Source: patient and EMS Mode of arrival: EMS Limitations: no limitations History of Present Illness HPI narrative: Patient comes to emergency room complaining of anxiety. Patient states that she did not take her medications this morning, patient takes Xanax 0.5 mg t.i.d. patient states that she is anxious because she does not have a tablet for tonight, and she get a refill tomorrow her prescriptions. complaint: anxiety Related Data Allergies Allergy/AdvReac Type Severity Reaction Status Date / Time No Known Allergies Allergy Verified 11/19/20 08:49 Review of Systems Review of Systems: Constitutional : No Weight loss, No Fever, No Chills, No Night Sweats, No Fatigue, No Malaise ENT/Mouth : No Hearing loss, No Ear Pain, No Nasal Congestion, No Sinus Pain, No Hoarseness, No sore throat, No Rhinorrhea, No Swallowing Difficulty Eyes: No Eye Pain, No Swelling, No Redness, No Foreign Body, No Discharge, No Vision Changes Cardiovascular : No Chest Pain, No SOB, No Dyspnea on Exertion, No Orthopnea, No Edema, No Palpitations Respiratory : No Cough, No Sputum, No Wheezing, No Smoke Exposure, No Dyspnea Gastrointestinal : No Nausea, No Vomiting, No Diarrhea, No Constipation, No abdominal Pain, No Hematochezia, No Melena Genitourinary : no irregular bleeding, No Dysuria, No Urinary Frequency, No Hematuria, No Urinary Incontinence, No Urgency, No Flank Pain, No Urinary Flow Changes, No Hesitancy Musculoskeletal : No joint pain, No Myalgias, No Joint Swelling Skin : No Skin Lesions, No rash Neuro : No Weakness, No Numbness, No Paresthesias, No Loss of Consciousness, No Dizziness, No Headache Psych : Complaining of anxiety, No Depression, No SI/HI/AH/VH, No Social Iss ues, Heme/Lymph: No Bruising, No Bleeding,No Lymphadenopathy Endocrine : No Polyuria, No Polydipsia, No Temperature Intolerance PMFSH Past Medical History Medical History (Updated 05/07/21 @ 18:48 by Madeline Nair MD) Anxiety Social History Social History Alcohol intake: never Patient Tobacco Use Status: Former Tobacco user Advance Directives: No Advance Directives Information Provided: No Physical Exam Const: Other: Appearance: Alert. Oriented X3. No acute distress. Eyes: Pupils equal, round and reactive to light. ENT: Pharynx normal. Neck: Normal inspection. Neck supple. No lymph nodes noted. No crepitus CVS: Normal heart rate and rhythm. Pulses normal. Normal S1 and S2 Respiratory: No respiratory distress. Breath sounds normal. No Wheezing. No rales Abdomen: Soft and nontender. No rigidity. No distention. Skin: Skin warm and dry. Normal skin color. Normal skin turgor. Extremities: No lower extremity edema. No Lacerations. No Rash Neuro: Oriented X 3. No motor deficit. No sensory deficit. Moving all extremities. No slurred speech. CN 2 through 12 grossly intact Psych: calm, slightly anxious, cooperative, normal affect Course Course Course Narrative: Patient was given 1 dose of 0.5 mg of Xanax. Patient feeling well. Patient instructed to follow-up her primary care physician tomorrow Discharge Plan Discharge Clinical Impression: Acute anxiety Patient Disposition: Home, Self-Care Instructions: Anxiety (ED) Additional Instructions: Please follow-up with your primary care physician tomorrow. If you have any worsening or new symptoms, please return to the emergency room or call 911
[2021-05-07 18:59] LABS: Appearance Urine CLEAR; Color Urine YELLOW; Glucose Urine UA NEG (NEG); Leukocyte Esterase Urine NEG (NEG); Nitrite Urine NEG (NEG); Specific Gravity - Urine <= 1.005 (1.005-1.025); Urine Blood NEG (NEG); Urine Ketones NEG (NEG); Urine Protein NEG (NEG-TRACE)
[2021-05-07] MEDS: ALPRAZolam 0.5 MG TABLET PO (19:36)
[2021-05-07 19:37] VITALS: BP 143/80; PULSE 71; RESP 16; TEMP 36.6; O2SAT 96; BMI 24.5
[2021-05-07 19:44] VITALS: BP 143/80; PULSE 70; RESP 16; O2SAT 99
== END 2021-05-07 20:02 | disposition home or self-care (01) ==
PROVIDERS: Emergency Provider Emergency Medicine; PCP Internal Medicine
DX: F41.9 Anxiety disorder, unspecified (principal)
CPT/HCPCS: 81003; 99283; 99284

== ENCOUNTER 2023-08-10 13:53 | Emergency (ER) | payer MEDICARE, SELFPAY ==
--- NOTE | ~2023-08-10 | XR_ITS ---
EXAMINATION: CHEST, LEFT HIP, LEFT KNEE CLINICAL INFORMATION: Fall with pain COMPARISON: Left hip 04/21/2021, chest and left RIBS 09/12/2020 TECHNIQUE: Single view chest, single view pelvis with 2 additional views left hip, 2 views left knee FINDINGS: Chest: Heart size normal. No evidence of CHF. Some chronic appearing reticular nodular densities are seen in the lungs. No consolidations, effusions or suspicious lung masses. Pelvis and left hip: No pelvic or hip fracture is seen. Mild degenerative changes are seen at the pubic symphysis. Left knee: Tricompartmental degenerative changes are seen. There is some chronic depression of the lateral tibial plateau with sclerosis possibly secondary to an old fracture. No evidence of a acute fracture. Mild chondrocalcinosis seen with calcification in the medial meniscus. No joint effusion is seen. XR/XR hip LT w PEL1V IMPRESSION: 1. No acute intrathoracic disease. 2. No evidence of an acute osseous injury in the pelvis, left hip or left knee. 3. Degenerative changes in the left knee with chondrocalcinosis and possible old lateral tibial plateau fracture.
--- NOTE | ~2023-08-10 | XR_ITS ---
EXAMINATION: CHEST, LEFT HIP, LEFT KNEE CLINICAL INFORMATION: Fall with pain COMPARISON: Left hip 04/21/2021, chest and left RIBS 09/12/2020 TECHNIQUE: Single view chest, single view pelvis with 2 additional views left hip, 2 views left knee FINDINGS: Chest: Heart size normal. No evidence of CHF. Some chronic appearing reticular nodular densities are seen in the lungs. No consolidations, effusions or suspicious lung masses. Pelvis and left hip: No pelvic or hip fracture is seen. Mild degenerative changes are seen at the pubic symphysis. Left knee: Tricompartmental degenerative changes are seen. There is some chronic depression of the lateral tibial plateau with sclerosis possibly secondary to an old fracture. No evidence of a acute fracture. Mild chondrocalcinosis seen with calcification in the medial meniscus. No joint effusion is seen. XR/XR knee LT 3V IMPRESSION: 1. No acute intrathoracic disease. 2. No evidence of an acute osseous injury in the pelvis, left hip or left knee. 3. Degenerative changes in the left knee with chondrocalcinosis and possible old lateral tibial plateau fracture.
--- NOTE | ~2023-08-10 | XR_ITS ---
EXAMINATION: CHEST, LEFT HIP, LEFT KNEE CLINICAL INFORMATION: Fall with pain COMPARISON: Left hip 04/21/2021, chest and left RIBS 09/12/2020 TECHNIQUE: Single view chest, single view pelvis with 2 additional views left hip, 2 views left knee FINDINGS: Chest: Heart size normal. No evidence of CHF. Some chronic appearing reticular nodular densities are seen in the lungs. No consolidations, effusions or suspicious lung masses. Pelvis and left hip: No pelvic or hip fracture is seen. Mild degenerative changes are seen at the pubic symphysis. Left knee: Tricompartmental degenerative changes are seen. There is some chronic depression of the lateral tibial plateau with sclerosis possibly secondary to an old fracture. No evidence of a acute fracture. Mild chondrocalcinosis seen with calcification in the medial meniscus. No joint effusion is seen. XR/XR chest 1V IMPRESSION: 1. No acute intrathoracic disease. 2. No evidence of an acute osseous injury in the pelvis, left hip or left knee. 3. Degenerative changes in the left knee with chondrocalcinosis and possible old lateral tibial plateau fracture.
--- NOTE | ~2023-08-10 | CT_ITS ---
EXAMINATION: HEAD CT WITHOUT CONTRAST CERVICAL SPINE CT WITHOUT CONTRAST CLINICAL INFORMATION: Fall, head injury COMPARISON: None. TECHNIQUE: Contiguous axial imaging of the head was performed without the administration of IV contrast. Axial multidetector volumetric images were also performed through the cervical spine without contrast. Multiplanar reconstructed images in coronal and sagittal orientations were submitted. DOSE: 620 mGy-cm FINDINGS: HEAD: There is no evidence of acute intracranial hemorrhage or edematous territorial infarction. No abnormal mass-effect or midline shift. No abnormal extra-axial fluid collections. Baeza to white matter differentiation is well preserved. Commensurate prominence of the ventricles and sulci is compatible with generalized parenchymal volume loss. There is periventricular and subcortical white matter hypoattenuation, most likely representing microangiopathic disease No acute calvarial fracture. The sinuses and mastoid air cells are clear. CERVICAL SPINE: The atlantooccipital and atlantoaxial articulations remain well aligned. There is grade 1 anterolisthesis of C4 on C5, C5 on C6. There is mild anterolisthesis of C6 on C7, C7 on T1. This probably is related to degenerative changes. There are multilevel facet degeneration seen. Vertebral body heights are maintained. No evidence of acute fracture. Osteopenia. Multilevel disc degenerative changes. Severe disc degeneration at C5-C6, C6-C7 the central canal is grossly maintained. No prevertebral soft tissue swelling. Mild biapical scarring. CT/CT cervical spine wo IV con IMPRESSION: 1. No CT evidence of acute intracranial hemorrhage or edematous territorial infarction. 2. Chronic microangiopathy and cerebral volume loss.. 3. Mild anterolisthesis of C4 on C5, C5-C6, mild anterolisthesis of C6 on C7, C7 on T1. This probably degenerative. 4. No acute cervical spine fracture seen.
[2023-08-10 14:08] VITALS: BP 137/104; PULSE 90; RESP 16; TEMP 36.6; O2SAT 94; BMI 23.5
--- NOTE | 2023-08-10 14:11 | ECG_ITS ---
Test Reason : FALL Blood Pressure : / mmHG Vent. Rate : 090 BPM Atrial Rate : 090 BPM P-R Int : 144 ms QRS Dur : 084 ms QT Int : 380 ms P-R-T Axes : 004 -29 -19 degrees QTc Int : 464 ms Sinus rhythm with occasional Premature ventricular complexes Minimal voltage criteria for LVH, may be normal variant ( R in aVL ) Nonspecific T wave abnormality Abnormal ECG No previous ECGs available Referred By: Sugey Ricks Electronically Signed By:VICKI GODOY
--- NOTE | 2023-08-10 14:12 | ED_ITS ---
HPI - Fall General Chief Complaint: Fall Stated Complaint: FALL LAST NIGHT S/P SEIZURE? Time Seen by Provider: 08/10/23 14:11 Source: patient and EMS Mode of arrival: EMS Limitations: no limitations History of Present Illness ED Provider: DR. Ricks HPI Narrative: 88-year-old female brought in by ambulance for evaluation after a fall at home. Patient lives home by herself walk with a walker patient stated that she fell last night at home got stuck in between furniture could not get herself up, was able to get to the phone and call 911 on arrival patient found on the ground, patient is complaining of left knee pain. Stated that a fan fell on her head no LOC, no headache, no blurry vision. Related Data Allergies Allergy/AdvReac Type Severity Reaction Status Date / Time Penicillins Allergy Rash Verified 08/10/23 14:14 Review of Systems 2 Review of Systems: All other systems are reviewed and are negative Constitutional: Reports as per HPI and Reports no additional constitutional complaints Eyes: Reports as per HPI and Reports no additional eye complaints Reports system reviewed and no additional complaints, except as documented Cardiovascular: Reports as per HPI and Reports no additional cardiovascular complaints Respiratory: Reports as per HPI and Reports no additional respiratory complaints Gastrointestinal: Reports as per HPI and Reports no additional gastrointestinal complaints Genitourinary: Reports no additional female genitourinary complaints Musculoskeletal: Reports no additional musculoskeletal complaints Skin/Breast: Reports system reviewed and no additional complaints, except as docu Psychiatric: Reports no additional psychiatric complaints Endocrine: Reports no additional endocrine complaints Hematologic/Lymphatic: Reports no additional hematologic/lymphatic complaints Allergic/Immunologic: Reports no additional allergic/immunologic complaints Reports system reviewed and no additional complaints, except as documented and Reports Abnormal speech present [facility] Past Medical History Medical History Anxiety Social History Social History Alcohol intake: never Patient Tobacco Use Status: Never used Tobacco Advance Directives: No Advance Directives Information Provided: No Physical Exam 2 Vital Signs: Vital Signs: Last Vital Signs Temp 98 F 08/10/23 14:08 Pulse 90 08/10/23 14:08 Resp 16 08/10/23 14:08 BP 137/104 H 08/10/23 14:08 Pulse Ox 94 08/10/23 14:08 O2 Del Method Room Air 08/10/23 14:08 BMI result Body Mass Index 23.5 Vital signs have been reviewed and appear to be correct. Blood pressure elevated. Heart rate normal. Respiratory rate normal. Temperature normal. Oxygen saturation normal. Appearance: Alert. Oriented X3. No acute distress. Head: Normal external exam. Normocephalic. Atraumatic. No Edmonds signs noted. No raccoon eyes noted Eyes: PERRLA. EOMI. Conjunctiva and sclera normal. Eyelids normal. ENT: TM's Normal. Pharynx normal. Uvula midline. Moist mucous membranes. No trismus noted. No drooling noted. No muffled voice noted. Neck: Normal inspection. Neck supple. FROM. No adenopathy. Thyroid Normal. No meningeal signs. No neck mass noted. CVS: Normal heart rate and rhythm. Heart sound normal. No murmurs noted. Pulses normal throughout. Respiratory: No respiratory distress. Painless inspiration. Breath sounds normal. No wheezes/rales/rhonchi noted. Chest nontender. No accessory muscle usage noted or decreased air movement noted. Abdomen: Soft and nontender. Bowel sounds normal in all 4 quadrants. No distention noted. No organomegaly noted. No visible injury noted. Back: No CVA tenderness. Full range of motion noted. Skin: Skin warm and dry. Normal skin color. Normal skin turgor. No rashes/lesions/lacerations noted. Extremities: No hip tenderness, no step-off, no deformity, left knee slightly tender to touch but no deformity, no swelling, no effusion. Neuro: Oriented X 3. Cranial nerve exam: II-XII are grossly intact No motor deficit. No sensory deficit. Reflexes normal. Course Reevaluation(s) Reevaluation #1: S/p fall. 1. No rhabdomyolysis. 2. Normal neuro exam with unremarkable CT of the head for acute intracranial pathology. 3. No extremity fracture. 4. UTI start on Macrobid. 5. Will need case management evaluation and physical therapy evaluation for further placement. 6. Will keep the patient for physician observation. Time: 16:01 Medications Administered Discontinued Medications Generic Name Dose Route Start Last Admin Trade Name Freq PRN Reason Stop Dose Admin Sodium Chloride 1,000 mls @ 999 mls/hr 08/10/23 14:11 08/10/23 15:50 Ns IV 08/10/23 15:11 999 mls/hr .Q1H1M ONE Administration Medical Decision Making Differential Diagnosis Differential Diagnoses: The differential diagnosis associated with the presentation includes ( Intracranial bleed, cervical spine injury, left knee fracture, pelvic fracture, electrolyte derangement, rhabdomyolysis, acute renal injury, severe anemia , UTI.) Admission/Observation Consideration of admission/observation: Escalation of care including admission/observation considered Lab Data MDM Lab Attestation statement: I reviewed the patient's lab results. 08/10/23 14:42 08/10/23 14:42 Labs: Lab Results 08/10/23 08/10/23 Range/Units 14:38 14:42 WBC 8.6 (4.8-10.8) X10*3/uL RBC 3.91 L (4.20-5.50) X10*6/uL Hgb 12.7 (12.0-16.0) g/dl Hct 37.5 (37.0-47.0) % MCV 95.9 (80.0-98.0) fL MCH 32.5 (27.0-33.0) pg MCHC 33.9 (31.0-35.0) g/dl RDW 14.4 (11.0-16.0) % Plt Count 242 D (160-400) X10*3/uL MPV 8.9 L (9.4-12.3) fL Immature Gran % (Auto) 0.3 (0.0-0.4) % Neut % (Auto) 82.7 H (45-73) % Lymph % (Auto) 12.5 L (20-40) % [place] % (Auto) 4.2 (2-11) % Eos % (Auto) 0.0 (0-4) % Baso % (Auto) 0.3 (0-2) % Lymph # (Auto) 1.1 L (1.2-4.9) X10*3/uL [place] # (Auto) 0.4 (0.1-1.2) X10*3/uL Eos # (Auto) 0.0 (0.0-0.4) X10*3/uL Baso # (Auto) 0.0 (0.0-0.2) X10*3/uL Abs Immat Gran (auto) 0.03 (0.00-0.03) X10*3/uL Absolute Neuts (auto) 7.1 (2.0-8.3) x10*3/uL Absolute Nucleated RBC 0.000 (0.0-0.012) X10*3/uL Nucleated RBC % (auto) 0.0 (0.0-0.2) /100WBC Sodium 142 (135-145) mmol/L Potassium 3.4 (3.3-5.1) mmol/L Chloride 106 (96-108) mmol/L Carbon Dioxide 25 (22-29) mmol/L Anion Gap 14 (12-20) BUN 10 (9-16) mg/dL Creatinine 0.80 (0.5-1.4) mg/dL Estim Creat Clear Calc 39.1 Estimated GFR > 60 Random Glucose 119 H (60-115) mg/dL Calcium 9.1 (8.4-10.2) mg/dL Total Bilirubin 0.5 (0.0-1.0) mg/dL Direct Bilirubin 0.2 (0.0-0.5) mg/dL AST 23 (5-31) U/L ALT 10 (0-31) U/L Alkaline Phosphatase 52 (39-117) U/L Total Creatine Kinase 142 H (26-140) U/L Troponin I High Sens 6.9 (<3.5-17.0) ng/L B-Natriuretic Peptide 40 (<100) pg/mL Total Protein 7.2 (6.5-8.0) g/dL Albumin 3.9 (3.5-5.0) g/dL Lipase 10 (8-78) U/L Urine Color Yellow Urine Appearance Cloudy Urine pH 5.5 (5.0-9.0) Ur Specific [place] 1.010 (1.005-1.025) Urine Protein Negative (Neg-Trace) mg/dL Urine Glucose (UA) Negative (Negative) mg/dL Urine Ketones Negative (Negative) mg/dL Urine Blood Negative (Negative) Urine Nitrite Positive H (Negative) Ur Leukocyte Esterase Large (3+) H (Negative) Urine RBC 0-2 (0-2) /HPF Urine WBC 21-50 H (0-5) /HPF Ur Squamous Epith Cells 0-2 (0-2) /HPF Urine Bacteria 4+ (None Seen) Hyaline Casts 0-2 (0-2) /LPF Influenza Type A (PCR) NEGATIVE (Negative) Influenza Type B (PCR) NEGATIVE (Negative) RSV RNA Qual (PCR) NEGATIVE (Negative) SARS-CoV-2 RNA (RT-PCR) NEGATIVE (Negative) Independent Interpretation I performed an independent interpretation of an: Plain X-Ray ( Chest, left knee, pelvis:1. No acute intrathoracic disease. 2. No evidence of an acute osseous injury in the pelvis, left hip or left knee. 3. Degenerative changes in the left knee with chondrocalcinosis and possible old lateral tibial plateau fracture. ) and CT Scan ( Head and cervical spine:. No CT evidence of acute intracranial hemorrhage or edematous territorial infarction. 2. Chronic microangiopathy and cerebral volume loss.. 3. Mild anterolisthesis of C4 on C5, C5-C6, mild anterolisthesis of C6 on C7, C7 on T1. This probably degenerative. 4. No acute cer) Radiology Impression Discussion of test interpretation with radiology: I have reviewed the radiologist's reading. Discharge Plan Discharge Clinical Impression: Acute UTI, Accident due to mechanical fall without injury, Closed head injury, Contusion of left knee Patient Disposition: Still a Patient Print Language: [place]
[2023-08-10 14:46] LABS: MANUAL DIFF FLAG NO
[2023-08-10 14:47] LABS: Basophils Percent Auto 0.3 % (0-2); Hematocrit 37.5 % (37.0-47.0); Hemoglobin 12.7 g/dl (12.0-16.0); Imm Gran Abs Auto 0.03 X10*3/uL (0.00-0.03); Imm Gran Pct Auto 0.3 % (0.0-0.4); Lymphocytes Absolute Auto 1.1 X10*3/uL (1.2-4.9); Lymphocytes Percent Auto 12.5 % (20-40); Mean Corpuscular HGB Conc 33.9 g/dl (31.0-35.0); Mean Corpuscular Hemoglobin 32.5 pg (27.0-33.0); Mean Corpuscular Volume 95.9 fL (80.0-98.0); Mean Platelet Volume 8.9 fL (9.4-12.3); Monocytes Absolute Auto 0.4 X10*3/uL (0.1-1.2); Monocytes Percent Auto 4.2 % (2-11); Neutrophils Absolute Auto 7.1 x10*3/uL (2.0-8.3); Neutrophils Percent Auto 82.7 % (45-73); Platelet Count 242 X10*3/uL (160-400); Red Blood Count 3.91 X10*6/uL (4.20-5.50); Red Cell Distribution Width 14.4 % (11.0-16.0); White Blood Count 8.6 X10*3/uL (4.8-10.8)
[2023-08-10 14:48] LABS: Appearance Urine Cloudy; Color Urine Yellow; Glucose Urine UA Negative (Negative); Leukocyte Esterase Urine Large (3+) (Negative); Nitrite Urine Positive (Negative); PH 5.5 (5.0-9.0); UMIC TRIGGER UACC YES; Urine Blood Negative (Negative); Urine Ketones Negative (Negative); Urine Protein Negative (Neg-Trace)
[2023-08-10 14:53] LABS: Bacteria Urine 4+ (None Seen); Hyaline Casts Urine 0-2 /LPF (0-2); RBC Urine 0-2 /HPF (0-2); Squamous Epithelial Cell Urine 0-2 /HPF (0-2); UACC Culture Trigger YES; WBC Urine 21-50 /HPF (0-5)
[2023-08-10 15:03] LABS: Alanine Aminotransferase 10 U/L (0-31); Albumin Level 3.9 g/dL (3.5-5.0); Alkaline Phosphatase 52 U/L (39-117); Anion Gap 14 (12-20); Aspartate Amino Transferase 23 U/L (5-31); Bilirubin Direct 0.2 mg/dL (0.0-0.5); Bilirubin Total 0.5 mg/dL (0.0-1.0); Blood Urea Nitrogen 10 mg/dL (9-16); Calcium 9.1 mg/dL (8.4-10.2); Carbon Dioxide 25 mmol/L (22-29); Chloride 106 mmol/L (96-108); Creatinine Clr Calc Pharmacy 39.1; Estimated Glomerular Filt Rate > 60; Glucose Random 119 mg/dL (60-115); Lipase 10 U/L (8-78); Potassium 3.4 mmol/L (3.3-5.1); Sodium 142 mmol/L (135-145); Total Protein 7.2 g/dL (6.5-8.0)
[2023-08-10 15:08] LABS: B Type Natriuretic Peptide 40 pg/mL (<100)
[2023-08-10 15:09] LABS: Troponin-I High Sensitivity 6.9 ng/L (<3.5-17.0)
[2023-08-10 15:29] LABS: Influenza A PCR NEGATIVE (Negative); Influenza B PCR NEGATIVE (Negative); Resp Syncy Virus RNA Qual PCR NEGATIVE (Negative); SARS COV2 PCR INHOUSE NEGATIVE (Negative)
[2023-08-10] MEDS: 0.9 % Sodium Chloride 1,000 ML 999 ML IV (15:50)
[2023-08-10 16:38] VITALS: BP 152/88; PULSE 84; RESP 16; TEMP 36.8; O2SAT 96
--- NOTE | 2023-08-10 17:37 | PC.NURSE ---
Assumed care of pt at approx 1700. Pt A&Ox3, vague to time. Respirations even and unlabored. No edema. CUEVAS independently, follows commands appropriately. Offers no complaints at this time. Purewick in place d/t pt level of activity, refusing to get OOB. Skin intact. Pt wears glasses. Call james in place. Bed alarm on for pt safety. Plan of care ongoing.
[2023-08-10 19:27] VITALS: BP 144/78; PULSE 70; RESP 16; TEMP 36.6; O2SAT 97
--- NOTE | 2023-08-10 19:29 | MHC.EDTECH ---
Patient was set up with dinner ate 50 % of meal drank 240 ml fluids .vitals taken ,call james within Pt reach .
[2023-08-10] MEDS: Nitrofurantoin Monohyd/M-Cryst 100 MG CAPSULE PO (20:03)
--- NOTE | 2023-08-11 03:22 | MHC.EDTECH ---
Purwick canister emptied at 800cc of urine
[2023-08-11 06:00] VITALS: BP 164/83; PULSE 74; RESP 18; TEMP 36.9; O2SAT 95
[2023-08-11 08:58] VITALS: PULSE 74; O2SAT 97
[2023-08-11] MEDS: Levothyroxine Sodium 88 MCG TABLET PO (09:09)
[2023-08-11] MEDS: Nitrofurantoin Monohyd/M-Cryst 100 MG CAPSULE PO (09:09)
[2023-08-11] MEDS: ALPRAZolam 0.5 MG TABLET PO (09:09)
[2023-08-11] MEDS: Acetaminophen 325 MG TABLET 975 MG PO (09:43)
--- NOTE | 2023-08-11 09:50 | PC.NURSE ---
this RN resumed care of pt at 0645. alert and oriented x 3 - difficulty recalling date. pt seems to be pleasantly confused otherwise. morning medication administered whole w/ water. no difficulties in swallowing noted. pt c/o generalized pain throughout s/p fall x a few days ago. one time order of tylenol ordered. prn tylenol requested through covering PA in main ED. medication then ordered by provider. PT eval completed. pt tolerated well. pt using bedside commode to promote independence. 1:1 assist needed to ambulate out of bed. ate approx. 75% of breakfast. pt otherwise resting comfortably in bed in no apparent distress. no sob/wob noted. respirations even/unlabored. pt waiting for placement to STR at this time. plan of care ongoing. call james placed within reach.
--- NOTE | 2023-08-11 12:12 | PC.NURSE ---
Assumed care of this patient at 1100, patient continues to be intermittently confused regarding situation, 1A to commode w/ urinary frequency/ urgency.
[2023-08-11 14:00] VITALS: BP 141/82; PULSE 80; RESP 16; TEMP 36.9; O2SAT 98
--- NOTE | 2023-08-11 15:04 | MHC.CM.PN ---
CM MET WITH PT AND DAUGHTER PT LIVES ALONE AND HAS SERVICES FRIDAY THROUGH FRIDAY FOR HOUSEKEEPING AND HER DAUGHTER VISITS DAILY TO ASSIST PRN PT USES A WALKER AT [facility] THEY ARE AWARE STR IS BEING RECOMMENDED THEY ACCEPTED A BED OFFER FROM [facility] WHO HAS OBTAINED AUTH S TRANSPORT BOOKED VIA [facility] FOR 1600 DAUGHTER AWARE AND IN AGREEMENT
--- NOTE | 2023-08-11 15:16 | PC.NURSE ---
RN to RN phone report given to admit RN at [facility], all questions answered.
== END 2023-08-11 18:02 | disposition skilled nursing facility (03) ==
PROVIDERS: Emergency Provider Emergency Medicine
DX: S80.02XA Contusion of left knee, initial encounter (principal); S09.90XA Unspecified injury of head, initial encounter; R51.9 Headache, unspecified; R11.2 Nausea with vomiting, unspecified; R06.02 Shortness of breath; R53.83 Other fatigue; M25.552 Pain in left hip; R07.89 Other chest pain; M54.2 Cervicalgia; R26.2 Difficulty in walking, not elsewhere classified; W18.30XA Fall on same level, unspecified, initial encounter; Y93.9 Activity, unspecified; Y92.9 Unspecified place or not applicable; Y99.8 Other external cause status; Z03.818 Encounter for observation for suspected exposure to other biological agents ruled out; Z79.899 Other long term (current) drug therapy
CPT/HCPCS: 0241U; 36415; 70450; 71045; 72125; 73502; 73562; 80048; 80076; 81001; 82550; 83690; 83880; 84484; 85025; 87086; 87088; 87186; 93005; 96360; 97162; 99285

== ENCOUNTER → 2023-08-10 14:11 | Outpatient (BNV) | payer MEDICARE, SELFPAY | PROVIDERS: Emergency Provider Emergency Medicine; Visit Provider Internal Medicine | DX: I49.3 Ventricular premature depolarization (principal); R94.31 Abnormal electrocardiogram [ECG] [EKG] | CPT/HCPCS: 93010 ==

== ENCOUNTER 2023-11-23 18:56 | Emergency (ER) | payer MEDICARE, SELFPAY ==
--- NOTE | 2023-11-23 | ECG_ITS ---
Test Reason : AMS Blood Pressure : / mmHG Vent. Rate : 089 BPM Atrial Rate : 089 BPM P-R Int : 148 ms QRS Dur : 076 ms QT Int : 378 ms P-R-T Axes : 017 -30 -21 degrees QTc Int : 459 ms Normal sinus rhythm Left axis deviation Minimal voltage criteria for LVH, may be normal variant ( R in aVL ) Nonspecific ST abnormality Abnormal ECG When compared with ECG of 10-AUG-2023 14:17, Premature ventricular complexes are no longer Present Referred By: Generic ED Physician Electronically Signed By:VICKI GODOY
--- NOTE | ~2023-11-23 | CT_ITS ---
EXAMINATION: CT brain and chest x-ray. CLINICAL INDICATION: Altered mental status. COMPARISON: CT brain 08/10/2023. TECHNIQUE: 5 mm thin axial and reformatted 2 mm thin sagittal and coronal images of brain were obtained. DLP 625. This CT examination was performed using dose optimization technique as appropriate, variously including the following: Automated exposure control Adjustment of MA and/or KV according to patient size(this includes techniques or standardized protocols for targeted exams where dose is matched to indication/reason for exam; extremities or head. Use of iterative reconstruction techniques. Chest x-ray one view. FINDINGS: Chest: The lungs are expanded and clear acute pneumonic process. The heart size and pulmonary vascularity is normal. No gross bony abnormality seen. Brain: There is no acute intra-axial, extra-axial bleed, masses or midline shift. There is no acute infarction in evolution. There is no edema. The lateral ventricles are enlarged but symmetrical. Mild prominence of bilateral frontal cortical sulci noted as well. Bone windows reveal no calvarial abnormality. There is no scalp soft tissue abnormality. Bilateral paranasal sinuses and mastoid air cells are well-aerated. CT/CT head/brain wo IV con IMPRESSION: No acute intracranial process seen. Unremarkable chest exam. Electronically signed by: Pramod Beach MD 11/23/2023 08:11 PM EDT
[2023-11-23 19:15] VITALS: BP 168/90; BP 173/104; PULSE 86; PULSE 95; RESP 18; TEMP 37.1; O2SAT 96; O2SAT 97; BMI 25.1
[2023-11-23 19:45] LABS: Basophils Percent Auto 0.3 % (0-2); Eosinophils Percent Auto 0.1 % (0-4); Hematocrit 39.4 % (37.0-47.0); Hemoglobin 13.5 g/dl (12.0-16.0); Imm Gran Abs Auto 0.03 X10*3/uL (0.00-0.03); Imm Gran Pct Auto 0.3 % (0.0-0.4); Lymphocytes Absolute Auto 1.3 X10*3/uL (1.2-4.9); Lymphocytes Percent Auto 12.9 % (20-40); MANUAL DIFF FLAG NO; Mean Corpuscular HGB Conc 34.3 g/dl (31.0-35.0); Mean Corpuscular Hemoglobin 32.5 pg (27.0-33.0); Mean Corpuscular Volume 94.7 fL (80.0-98.0); Mean Platelet Volume 9.4 fL (9.4-12.3); Monocytes Absolute Auto 0.4 X10*3/uL (0.1-1.2); Monocytes Percent Auto 4.2 % (2-11); Neutrophils Absolute Auto 8.1 x10*3/uL (2.0-8.3); Neutrophils Percent Auto 82.2 % (45-73); Platelet Count 289 X10*3/uL (160-400); Red Blood Count 4.16 X10*6/uL (4.20-5.50); Red Cell Distribution Width 13.9 % (11.0-16.0); White Blood Count 9.9 X10*3/uL (4.8-10.8)
[2023-11-23 19:53] LABS: Prothrombin Time 11.4 SEC (10.9-12.4)
[2023-11-23 19:55] LABS: Appearance Urine Clear; Color Urine Yellow; Glucose Urine UA Negative (Negative); Leukocyte Esterase Urine Moderate (2+) (Negative); Nitrite Urine Negative (Negative); PH 6.5 (5.0-9.0); Specific Gravity - Urine <= 1.005 (1.005-1.025); UMIC TRIGGER UACC YES; Urine Blood Negative (Negative); Urine Ketones Negative (Negative); Urine Protein Negative (Neg-Trace)
[2023-11-23 19:59] LABS: Alanine Aminotransferase 11 U/L (0-31); Albumin Level 4.2 g/dL (3.5-5.0); Alkaline Phosphatase 59 U/L (39-117); Anion Gap 15 (12-20); Aspartate Amino Transferase 20 U/L (5-31); Bilirubin Total 0.6 mg/dL (0.0-1.0); Blood Urea Nitrogen 6 mg/dL (9-16); Calcium 9.6 mg/dL (8.4-10.2); Carbon Dioxide 26 mmol/L (22-29); Chloride 103 mmol/L (96-108); Creatinine Clr Calc Pharmacy 47.8; Estimated Glomerular Filt Rate > 60; Glucose Random 128 mg/dL (60-115); Potassium 3.4 mmol/L (3.3-5.1); Sodium 141 mmol/L (135-145); Total Protein 7.6 g/dL (6.5-8.0)
[2023-11-23 20:00] LABS: Bacteria Urine 4+ (None Seen); Hyaline Casts Urine 0-2 /LPF (0-2); RBC Urine 0-2 /HPF (0-2); Squamous Epithelial Cell Urine 0-2 /HPF (0-2); UACC Culture Trigger YES
[2023-11-23 20:02] VITALS: BP 155/88; PULSE 81; RESP 13; TEMP 37; O2SAT 96
[2023-11-23 20:06] LABS: Troponin-I High Sensitivity 11.6 ng/L (<3.5-17.0)
[2023-11-23 22:15] VITALS: BP 175/92; PULSE 85; RESP 14; TEMP 36.9; O2SAT 97
--- NOTE | 2023-11-23 23:47 | ED_ITS ---
HPI - General Adult General Chief complaint: Altered Mental Status Stated complaint: AMS, ?UTI Time Seen by Provider: 11/23/23 23:47 History of Present Illness ED Provider: Ilana MENA narrative: The patient is an 88-year-old woman who lives on her own. She says that she lives in a trailer home. Her daughter helps look after her and she also has a cleaning person. Apparently the patient's daughter called an ambulance today because she felt that her mother was confused and seemed weak. The daughter was concerned that the patient might have a urinary tract infection. There is no report of any fever. There is no chest pain or shortness of breath or cough or sputum. No nausea or vomiting. No abdominal pain. The patient is not think she has had any painful urination. Perhaps she has had some mild increased frequency of urination. Related Data Home Medications ?Medication ?Instructions ?Recorded ?Confirmed alprazolam 0.5 mg tablet 0.5 mg PO BID 08/10/23 11/23/23 levothyroxine 88 mcg tablet 88 mcg PO DAILY@0600 08/10/23 11/23/23 trazodone 100 mg tablet 200 mg PO BEDTIME PRN Insomnia 08/10/23 11/23/23 Allergies Allergy/AdvReac Type Severity Reaction Status Date / Time Penicillins Allergy Rash Verified 11/23/23 19:21 Review of Systems 2 Review of Systems: Yes all other systems are reviewed and are negative PMFSH Past Medical History Medical History Anxiety Social History Social History Alcohol intake: never Patient Tobacco Use Status: Never used Tobacco Smoked in Last 30 Days: No Use of substances other than those prescribed or required for medical reasons: No Advance Directives: No Advance Directives Information Provided: Yes Do you have a plan to hurt others: No Plan Physical Exam ED Vital Signs: Vital Signs - 24 hr 11/23/23 19:15 11/23/23 20:02 11/23/23 22:15 Temperature 98.8 F 98.6 F 98.4 F Pulse Rate 95 81 85 Respiratory Rate 18 13 14 Blood Pressure 173/104 H 155/88 H 175/92 H Pulse Oximetry 96 96 97 Oxygen Delivery Method Room Air Room Air Room Air 11/24/23 00:27 Temperature 98.1 F Pulse Rate 84 Respiratory Rate 15 Blood Pressure 168/95 H Pulse Oximetry 96 Oxygen Delivery Method Room Air BMI result Body Mass Index 25.1 Const Other: The patient is a frail elderly woman who was awake and alert. She does not seem in obvious distress. HENMT Other: Face is symmetrical. Mucous membranes moist. Eyes Other: Pupils are round equal, conjunctivae are clear, extraocular movements intact Neck Neck: Yes no JVD Resp Effort & Inspection: normal respiratory effort Auscultation: clear to auscultation bilaterally Cardio Rate: regular rate Rhythm: regular rhythm GI Other: Abdomen is soft and nontender Skin Other: Skin is dry and unremarkable Neuro Other: The patient is awake and alert. She is quite talkative. She seems reasonably well oriented. She knew that a ball and ultimately was able to tell me the correct month. She told me the correct year. She told me her correct age. She was able to describe her living situation accurately I think. Her cranial nerves are grossly intact. She moves her extremities symmetrically. She has no focal findings. Extrem Other: No peripheral edema. Medications Administered Generic Name Dose Route Start Last Admin Trade Name Freq PRN Reason Stop Dose Admin Alprazolam 0.5 mg 11/24/23 01:00 11/24/23 01:32 Alprazolam 0.5 Mg Tablet PO 0.5 mg BID BHUPINDER Administration Nitrofurantoin Macrocrystals 100 mg 11/24/23 01:30 11/24/23 01:33 Nitrofurantoin Monohyd/M-Cryst 100 Mg Capsule PO 100 mg BID BHUPINDER Administration Medical Decision Making Medical Decision Making [facility] Narrative: The patient is an 88-year-old woman who was brought to the hospital by ambulance because her daughter was concerned that she might be confused or seemed weaker than usual. The patient lives alone in a trailer. The patient does not seem obviously acutely ill. She does not seem profoundly confused. The daughter was concerned the patient might have a UTI. Her urinalysis is weakly positive. I attempted to reach the daughter to discuss the patient has the case but the daughter did not call back after I left a message. The patient will be kept in the emergency room overnight. In case the patient in fact has a UTI she has been started on nitrofurantoin. There is a 1 positive urine culture in our computer from 08/10/2023 when she grew an Enterobacter Cloacae species sensitive to nitrofurantoin. The patient was also given her usual bedtime trazodone. The patient will be placed in physician observation for evaluation by physical therapy and case management in the morning with the additional input from the patient's daughter assuming she contacts us tomorrow. Lab Data 11/23/23 19:35 11/23/23 19:35 Labs: Lab Results 11/23/23 11/23/23 Range/Units 19:35 19:39 WBC 9.9 (4.8-10.8) X10*3/uL RBC 4.16 L (4.20-5.50) X10*6/uL Hgb 13.5 (12.0-16.0) g/dl Hct 39.4 (37.0-47.0) % MCV 94.7 (80.0-98.0) fL MCH 32.5 (27.0-33.0) pg MCHC 34.3 (31.0-35.0) g/dl RDW 13.9 (11.0-16.0) % Plt Count 289 (160-400) X10*3/uL MPV 9.4 (9.4-12.3) fL Immature Gran % (Auto) 0.3 (0.0-0.4) % Neut % (Auto) 82.2 H (45-73) % Lymph % (Auto) 12.9 L (20-40) % Woodruff % (Auto) 4.2 (2-11) % Eos % (Auto) 0.1 (0-4) % Baso % (Auto) 0.3 (0-2) % Lymph # (Auto) 1.3 (1.2-4.9) X10*3/uL Woodruff # (Auto) 0.4 (0.1-1.2) X10*3/uL Eos # (Auto) 0.0 (0.0-0.4) X10*3/uL Baso # (Auto) 0.0 (0.0-0.2) X10*3/uL Abs Immat Gran (auto) 0.03 (0.00-0.03) X10*3/uL Absolute Neuts (auto) 8.1 (2.0-8.3) x10*3/uL Absolute Nucleated RBC 0.000 (0.0-0.012) X10*3/uL Nucleated RBC % (auto) 0.0 (0.0-0.2) /100WBC PT 11.4 (10.9-12.4) SEC INR 1.0 (0.9-1.1) Sodium 141 (135-145) mmol/L Potassium 3.4 (3.3-5.1) mmol/L Chloride 103 (96-108) mmol/L Carbon Dioxide 26 (22-29) mmol/L Anion Gap 15 (12-20) BUN 6 L (9-16) mg/dL Creatinine 0.72 (0.5-1.4) mg/dL Estim Creat Clear Calc 47.8 Estimated GFR > 60 Random Glucose 128 H (60-115) mg/dL Calcium 9.6 (8.4-10.2) mg/dL Total Bilirubin 0.6 (0.0-1.0) mg/dL AST 20 (5-31) U/L ALT 11 (0-31) U/L Alkaline Phosphatase 59 (39-117) U/L Troponin I High Sens 11.6 D (<3.5-17.0) ng/L C-Reactive Protein < 0.10 (< or = 0.50) mg/dL Total Protein 7.6 (6.5-8.0) g/dL Albumin 4.2 (3.5-5.0) g/dL Urine Color Yellow Urine Appearance Clear Urine pH 6.5 (5.0-9.0) Ur Specific [place] <= 1.005 (1.005-1.025) Urine Protein Negative (Neg-Trace) mg/dL Urine Glucose (UA) Negative (Negative) mg/dL Urine Ketones Negative (Negative) mg/dL Urine Blood Negative (Negative) Urine Nitrite Negative (Negative) Ur Leukocyte Esterase Moderate (2+) H (Negative) Urine RBC 0-2 (0-2) /HPF Urine WBC 6-10 H (0-5) /HPF Ur Squamous Epith Cells 0-2 (0-2) /HPF Urine Bacteria 4+ (None Seen) Hyaline Casts 0-2 (0-2) /LPF Independent Interpretation I performed an independent interpretation of an: EKG Interpretation: EKG at 19:24 shows normal sinus rhythm at 89 beats per minute. There is left axis deviation. There are nonspecific T wave changes. The changes are fairly similar to a previous EKG. Discharge Plan Discharge Clinical Impression: Weakness Patient Disposition: Still a Patient Prescriptions: No Action alprazolam 0.5 mg tablet 0.5 mg PO BID levothyroxine 88 mcg tablet 88 mcg PO DAILY@0600 trazodone 100 mg tablet 200 mg PO BEDTIME PRN (Reason: Insomnia) Print Language: Macedonian
[2023-11-24 00:07] LABS: C Reactive Protein < 0.10 mg/dL (< or = 0.50)
[2023-11-24 00:27] VITALS: BP 168/95; PULSE 84; RESP 15; TEMP 36.7; O2SAT 96
[2023-11-24] MEDS: ALPRAZolam 0.5 MG TABLET PO ×3 (01:32→21:19)
[2023-11-24] MEDS: Nitrofurantoin Monohyd/M-Cryst 100 MG CAPSULE PO ×3 (01:33→21:19)
[2023-11-24 06:24] VITALS: BP 161/71; PULSE 79; RESP 16; TEMP 36.8; O2SAT 95
[2023-11-24] MEDS: Levothyroxine Sodium 88 MCG TABLET PO (07:52)
--- NOTE | 2023-11-24 10:13 | MHC.EDTECH ---
tech assisted patient with stand and pivot to cammode. pt cleaned up and helped back into bed. readjusted pt and elevated the head of the bed to patient's comfort.
--- NOTE | 2023-11-24 11:22 | PC.NURSE ---
Alert with confusion, incon of urine, changed and repositioned, medicated per mar, case management to call daughter
--- NOTE | 2023-11-24 12:11 | MHC.CM.PN ---
EMR REVIEWED, PT W/UTI AND CONFUSION, PT ABLE TO ANSWER SOME QUESTIONS HOWEVER CM CONTACTED PT'S DTR LJ AT NUMBER ON FILE AND SHE REPORTED THAT THE LAST TIME PT HAD A UTI/CONFUSION SHE WENT TO [facility] FOR STR WHEN SHE DISCHARGED FROM HOSPITAL. LJ DOES VERIFY PT LIVES ALONE, WALKS W/A WALKER AT [facility] AND SHE ASSISTS PT W/NEEDS, JL IS CONCERNED ABOUT PT RETURNING HOME ALONE AND WOULD LIKE HER TO BE EVALUATED FOR STR SHE IS CONCERNED ABOUT HER BEING HOME ALONE W/CONFUSION SHE COULD NOT FIND THE BR AT HOME PRIOR TO COMING IN, REFERRAL PLACED TO [facility]. OF NOTE THE ONLY LOCAL SNF'S CONTRACTED W/[employer] MEDICARE ARE [facility], [facility] AND [facility] AND PT HAS BEEN TO [facility] PREVIOUSLY.
[2023-11-24 14:35] VITALS: BP 142/84; PULSE 80; RESP 16; O2SAT 98
--- NOTE | 2023-11-24 16:20 | MHC.CM.PN ---
CM RECEIVED A MESSAGE FROM P.T. REPORTING THEY WILL RECOMMEND STR, CM AWAITING EVAL TO BE WRITTEN UP AND WILL SEND TO [facility] SO THEY CAN SUBMIT FOR AUTH.
--- NOTE | 2023-11-24 16:45 | PC.NURSE ---
Daughter updated on current condition and agreement with plan of care for STR
[2023-11-24 22:27] VITALS: BP 179/81; PULSE 70; RESP 17; TEMP 37.1; O2SAT 95
--- NOTE | 2023-11-25 00:29 | PC.NURSE ---
Assumed care pf pt at 2300, Resting in bed, eyes closed, RR even and unlabored, no apparent distress at this time.
[2023-11-25] MEDS: Levothyroxine Sodium 88 MCG TABLET PO (05:39)
[2023-11-25 05:48] VITALS: BP 129/77; PULSE 76; RESP 17; TEMP 36.4; O2SAT 96
--- NOTE | 2023-11-25 07:27 | PC.NURSE ---
report recieved from previous RN, patient resting comfortably on stretcher, offering no complaints at this time. awaiting breakfast tray, plan of care remains ongoing
[2023-11-25 07:52] VITALS: BP 149/79; PULSE 71; RESP 14; TEMP 36.4; O2SAT 96
--- NOTE | 2023-11-25 07:52 | PC.NURSE ---
patient provided with breakfast tray
[2023-11-25] MEDS: ALPRAZolam 0.5 MG TABLET PO (08:23)
[2023-11-25] MEDS: Nitrofurantoin Monohyd/M-Cryst 100 MG CAPSULE PO (08:23)
--- NOTE | 2023-11-25 11:45 | PC.NURSE ---
patient provided with lunch tray
--- NOTE | 2023-11-25 13:29 | PHA.MEDREC ---
Addendum entered by Henry Edmond 11/25/23 13:36: reviewed Original Note: Pharmacy Consult ? Medication Reconciliation Pharmacy has reviewed the medication reconciliation done by nursing. spoke to patient and she confirm medication.
[2023-11-25 14:00] VITALS: BP 133/81; PULSE 81; RESP 16; TEMP 36.6; O2SAT 94
--- NOTE | 2023-11-25 15:00 | MHC.CM.ED ---
Pt has been authorized to transfer to [facility] on [address] for a 4pm [facility] transport time. Pt and dtr Yesenia aware and in agreement of plan.
--- NOTE | 2023-11-25 16:41 | PC.NURSE ---
patient provided with dinner tray
--- NOTE | 2023-11-25 17:01 | PC.NURSE ---
report called to jony reina
[2023-11-25 17:05] VITALS: BP 133/81; PULSE 81; RESP 16; TEMP 36.6; O2SAT 94
== END 2023-11-25 17:06 | disposition home or self-care (01) ==
PROVIDERS: Emergency Provider Emergency Medicine
DX: R41.82 Altered mental status, unspecified (principal); R53.1 Weakness; N39.0 Urinary tract infection, site not specified; R35.0 Frequency of micturition; R94.31 Abnormal electrocardiogram [ECG] [EKG]; R26.81 Unsteadiness on feet; Z79.899 Other long term (current) drug therapy; Z51.81 Encounter for therapeutic drug level monitoring
CPT/HCPCS: 36415; 70450; 71045; 80053; 81001; 84484; 85025; 85610; 86140; 87086; 87088; 87186; 93005; 97161; 99285

== ENCOUNTER → 2023-11-23 19:24 | Outpatient (BNV) | payer MEDICARE, SELFPAY | PROVIDERS: Emergency Provider Emergency Medicine; Visit Provider Internal Medicine | DX: R94.31 Abnormal electrocardiogram [ECG] [EKG] (principal); R41.82 Altered mental status, unspecified | CPT/HCPCS: 93010 ==

== ENCOUNTER 2024-01-24 17:07 | Inpatient (IN) | payer MEDICARE, SELFPAY ==
[2024-01-24] VITALS (9 sets, daily range): BP systolic 117–147; BP diastolic 64–77; PULSE 65–86; RESP 16–18; TEMP 37.6–37.9; O2SAT 86–99; BMI 27.4
--- NOTE | ~2024-01-24 | CT_ITS ---
EXAMINATION: CT ABDOMEN AND PELVIS WITH CONTRAST CLINICAL INFORMATION: Left lower quadrant pain COMPARISON: CT scan of the abdomen and pelvis November 2020 TECHNIQUE: Multidetector volumetric images were obtained from the superior aspect of the liver through the pubic symphysis following administration 85 mL of Omnipaque 350 intravenous contrast. Sagittal and coronal reformatted images were obtained on the technologist's workstation. Oral contrast: No This CT examination was performed using dose optimization techniques as appropriate, variously including the following: *Automated exposure control *Adjustment of mA and/or kV according to patient size (this includes techniques or standardized protocols for targeted exams where dose is matched to indication/reason for exam; i.e. extremities or head) *Use of iterative reconstruction technique DLP: 622 mGy-cm FINDINGS: LUNG BASES: Evaluation is limited because of motion artifact. Bibasilar lower lobe opacities LIVER, GALLBLADDER, AND BILIARY TREE: The liver is normal in size, shape, and attenuation. No focal hepatic lesion or biliary ductal dilatation is present. Gallbladder not well seen likely contracted. Question history of prior surgery. No change compared to prior. PANCREAS: Unremarkable. SPLEEN: Unremarkable. ADRENAL GLANDS: Unremarkable. KIDNEYS AND URETERS: The kidneys are normal in size, shape, and attenuation. No hydronephrosis, hydroureter, or calculi seen. No perinephric stranding. BLADDER: Unremarkable. GASTROINTESTINAL TRACT: Scattered diverticulosis without diverticulitis Appendix not clearly seen. No inflammatory changes in the right lower quadrant. ABDOMINAL WALL: No significant hernia is appreciated. LYMPH NODES: Normal. VASCULAR: Prominent arterial calcification throughout PELVIC VISCERA: Unremarkable OSSEOUS STRUCTURES: Grade 1 anterior listhesis medial 5 level. Degenerative disc changes with vacuum disc phenomenon and generalized bulging of the disc. These degenerative changes progressed compared to prior. The anterior listhesis is new CT/CT abdomen pelvis w IV con IMPRESSION: 1. No acute abnormality. 2. Scattered diverticulosis without diverticulitis. 3. Prominent calcific atherosclerotic disease throughout the abdomen and pelvis. 4. Grade 1 anterolisthesis of L5 on S1 new compared to prior. Progressive degenerative changes of the lumbar spine. Fleischner guidelines were followed. Electronically signed by: Monico Nguyen MD 01/24/2024 09:09 PM [facility]
--- NOTE | ~2024-01-24 | XR_ITS ---
EXAMINATION: XR CHEST CLINICAL INFORMATION: cough COMPARISON: Prior radiographs most recent 11/23/2023 TECHNIQUE: 2 views of the chest were obtained. FINDINGS: There is patchy bilateral consolidation greater in the left lung and right lung overall is new compared to prior. Cardiomediastinal silhouette normal. Bone and soft tissues unremarkable XR/XR chest 2V IMPRESSION: Bilateral patchy airspace disease new compared to prior. This could reflect multifocal pneumonia. Electronically signed by: Monico Nguyen MD 01/24/2024 08:37 PM EST [facility]
--- NOTE | 2024-01-24 17:24 | ED_ITS ---
HPI - Abdominal Pain General Chief Complaint: General Medical Stated Complaint: lethargy, incontenance, weakness x 2days Time Seen by Provider: 01/24/24 17:18 Source: patient Limitations: other (confused) History of Present Illness ED Provider: Belkys mendez PA-C HPI narrative: 88-year-old female with a history of hypothyroidism and frequent UTIs, presents with lethargy over the past 2-3 days. Patient states she is having left lower abdominal discomfort and a cough. Denies nausea vomiting diarrhea. Denies dysuria. Denies if she has had fevers at home. Denies chest pain or shortness of breath. She states ?I just feel weak?. Related Data Home Medications ?Medication ?Instructions ?Recorded ?Confirmed alprazolam 0.5 mg tablet 0.5 mg PO BID 08/10/23 11/23/23 levothyroxine 88 mcg tablet 88 mcg PO DAILY@0600 08/10/23 11/23/23 trazodone 100 mg tablet 200 mg PO BEDTIME PRN Insomnia 08/10/23 11/23/23 Previous Rx's ?Medication ?Instructions ?Recorded alprazolam 0.5 mg tablet (Xanax) 0.5 mg PO BID PRN anxiety #6 tabs 11/25/23 nitrofurantoin 100 mg PO Q12H 5 days #10 caps 11/25/23 monohydrate/macrocrystals 100 mg capsule (Macrobid) Allergies Allergy/AdvReac Type Severity Reaction Status Date / Time Penicillins Allergy Rash Verified 01/24/24 18:02 Review of Systems Review of Systems Yes all other systems are reviewed and are negative Constitutional: Denies fever(s), Reports lethargy and Reports malaise Cardiovascular: Denies chest pain Gastrointestinal: Reports abdominal pain, Denies diarrhea, Denies nausea and Denies vomiting Genitourinary: Denies dysuria PMFSH Past Medical History Attestation statement: The following information was validated with the patient. Medical History Anxiety Social History Social History Alcohol intake: never Patient Tobacco Use Status: Never used Tobacco Smoked in Last 30 Days: No Use of substances other than those prescribed or required for medical reasons: No Advance Directives: No Advance Directives Information Provided: No Physical Exam ED Vital Signs: Vital Signs - 24 hr 01/24/24 17:56 01/24/24 18:07 01/24/24 18:21 Temperature 100.3 F 100.3 F Pulse Rate 79 86 80 Respiratory Rate 18 18 18 Blood Pressure 133/76 133/70 142/64 H Pulse Oximetry 92 94 94 Oxygen Delivery Method Room Air Room Air Room Air Oxygen Flow Rate 01/24/24 18:51 01/24/24 19:37 01/24/24 21:00 Temperature 99.7 F Pulse Rate 75 68 Respiratory Rate 18 16 Blood Pressure 127/70 117/69 Pulse Oximetry 92 96 86 L Oxygen Delivery Method Room Air Room Air Room Air Oxygen Flow Rate 01/24/24 22:08 01/24/24 22:11 Temperature Pulse Rate 65 Respiratory Rate 16 Blood Pressure 122/64 Pulse Oximetry 97 99 Oxygen Delivery Method Nasal Cannula Nasal Cannula Oxygen Flow Rate 2 BMI result Body Mass Index 27.4 Const Other: Alert, Orientation/consciousness: oriented to person and oriented to time Resp Other: Nonlabored respirations, bibasilar crackles noted posterior billy Cardio Other: Normal peripheral perfusion GI Other: Abdomen is soft, nondistended, focal tenderness that is moderate in the left lower quadrant with minimal involuntary guarding Skin Other: Warm dry no rash Neuro Other: Patient is somewhat confused, she is not sure which hospital she is at, she can give me elements of the correct date, but does not completely get it cracked General: oriented to person, oriented to time, no focal motor deficits and CN's II-XI intact bilaterally Psych Other: Calm cooperative Course Reevaluation(s) Reevaluation #1: Patient has now begun to cough, after she told me she has not had any cough and cold symptoms, I hear bibasilar crackles, we will be ordering a viral swab and a chest x-ray. Time: 18:11 Reevaluation #2: Nursing relate to me that the patient dropped to 86% on room air, she is now on a nasal cannula, given multifocal pneumonia and being COVID positive, we will give IV Decadron Medical Decision Making Medical Decision Making MDM Narrative: 88-year-old female with a history of hypothyroidism and frequent UTIs, presents with lethargy over the past 2-3 days. Patient states she is having left lower abdominal discomfort and a cough. Denies nausea vomiting diarrhea. Denies dysuria. Denies if she has had fevers at home. Denies chest pain or shortness of breath. She states ?I just feel weak?. Problem: Age, frequent UTI History: Per patient I have considered the following differential diagnoses: Sepsis, diverticulitis, UTI, renal colic Plan: I am activating sepsis at this time 5:37 p.m., the patient has a rectal temp of 100.3?. Screening labs urinalysis blood cultures, lactic acid we will be obtained. The patient is hemodynamically stable, her systolic blood pressure is 133, she does not require weight based IV fluids at this time at 30 mL/kg. I am giving a 500 mL bolus, starting ceftriaxone. Given Tylenol for fever and Toradol for her discomfort. Given focal left lower quadrant discomfort, I am also obtaining a CT scan. I have independently reviewed the following tests: Labs: Slight leukocytosis with left shift, not anemic, no electrolyte abnormality, lactic acid 1.8, urine appears infected, viral panel reveals COVID positive Chest x-ray: XR/XR chest 2V IMPRESSION: Bilateral patchy airspace disease new compared to prior. This could reflect multifocal pneumonia. Electronically signed by: Monico Nguyen MD 01/24/2024 08:[address] abdomen and pelvis: CT/CT abdomen pelvis w IV con IMPRESSION: 1. No acute abnormality. 2. Scattered diverticulosis without diverticulitis. 3. Prominent calcific atherosclerotic disease throughout the abdomen and pelvis. 4. Grade 1 anterolisthesis of L5 on S1 new compared to prior. Progressive degenerative changes of the lumbar spine. Fleischner guidelines were followed. Electronically signed by: Monico Nguyen MD 01/24/2024 09:09 PM EST RP Lab Data 01/24/24 17:44 01/24/24 17:44 Labs: Lab Results 01/24/24 01/24/24 Range/Units 17:44 18:18 WBC 11.0 H (4.8-10.8) X10*3/uL RBC 3.91 L (4.20-5.50) X10*6/uL Hgb 12.2 (12.0-16.0) g/dl Hct 35.8 L (37.0-47.0) % MCV 91.6 (80.0-98.0) fL MCH 31.2 (27.0-33.0) pg MCHC 34.1 (31.0-35.0) g/dl RDW 13.0 (11.0-16.0) % Plt Count 437 H D (160-400) X10*3/uL MPV 9.3 L (9.4-12.3) fL Immature Gran % (Auto) 0.6 H (0.0-0.4) % Neut % (Auto) 79.0 H (45-73) % Lymph % (Auto) 14.7 L (20-40) % Rains % (Auto) 4.7 (2-11) % Eos % (Auto) 0.6 (0-4) % Baso % (Auto) 0.4 (0-2) % Lymph # (Auto) 1.6 (1.2-4.9) X10*3/uL Rains # (Auto) 0.5 (0.1-1.2) X10*3/uL Eos # (Auto) 0.1 (0.0-0.4) X10*3/uL Baso # (Auto) 0.0 (0.0-0.2) X10*3/uL Abs Immat Gran (auto) 0.07 H (0.00-0.03) X10*3/uL Absolute Neuts (auto) 8.7 H (2.0-8.3) x10*3/uL Absolute Nucleated RBC 0.000 (0.0-0.012) X10*3/uL Nucleated RBC % (auto) 0.0 (0.0-0.2) /100WBC Sodium 136 (135-145) mmol/L Potassium 3.6 (3.3-5.1) mmol/L Chloride 98 (96-108) mmol/L Carbon Dioxide 27 (22-29) mmol/L Anion Gap 15 (12-20) BUN 7 L (9-16) mg/dL Creatinine 0.78 (0.5-1.4) mg/dL Estim Creat Clear Calc 45.9 Estimated GFR > 60 Random Glucose 104 (60-115) mg/dL Lactic Acid 1.8 (0.5-2.0) mmol/L Calcium 8.5 D (8.4-10.2) mg/dL Magnesium 2.1 (1.6-2.6) mg/dL Total Bilirubin 0.4 (0.0-1.0) mg/dL AST 43 H (5-31) U/L ALT 6 (0-31) U/L Alkaline Phosphatase 73 (39-117) U/L Total Protein 7.7 (6.5-8.0) g/dL Albumin 3.1 L (3.5-5.0) g/dL Lipase 12 (8-78) U/L Urine Color Yellow Urine Appearance Cloudy Urine pH 6.5 (5.0-9.0) Ur Specific [place] <= 1.005 (1.005-1.025) Urine Protein Negative (Neg-Trace) mg/dL Urine Glucose (UA) Negative (Negative) mg/dL Urine Ketones Negative (Negative) mg/dL Urine Blood Trace H (Negative) Urine Nitrite Negative (Negative) Ur Leukocyte Esterase Large (3+) H (Negative) Urine RBC 0-2 (0-2) /HPF Urine WBC >50 H (0-5) /HPF Ur Squamous Epith Cells 0-2 (0-2) /HPF Urine Bacteria 4+ (None Seen) Hyaline Casts 0-2 (0-2) /LPF Influenza Type A (PCR) NEGATIVE (Negative) Influenza Type B (PCR) NEGATIVE (Negative) RSV RNA Qual (PCR) NEGATIVE (Negative) SARS-CoV-2 RNA (RT-PCR) POSITIVE A (Negative) Medications Administered Generic Name Dose Route Start Last Admin Trade Name Frevitaly PRN Reason Stop Dose Admin Azithromycin 500 mg/ Sodium 250 mls @ 125 mls/hr 01/24/24 22:28 01/24/24 22:36 Chloride IV 01/25/24 00:27 125 mls/hr ONCE STA Administration Discontinued Medications Generic Name Dose Route Start Last Admin Trade Name Freq PRN Reason Stop Dose Admin Acetaminophen 975 mg 01/24/24 17:35 01/24/24 17:49 Acetaminophen 325 Mg Tablet PO 01/24/24 17:36 975 mg ONCE ONE Administration Ceftriaxone Sodium 2 gm 01/24/24 17:35 01/24/24 17:51 Ceftriaxone Sodium 2 Gm Vial IVPUSH 01/24/24 17:36 2 gm ONCE ONE Administration Dexamethasone Sodium Phosphate 10 mg 01/24/24 22:07 01/24/24 22:12 Dexamethasone Sod Phosphate 10 Mg/Ml Vial IVPUSH 01/24/24 22:08 10 mg ONCE ONE Administration Sodium Chloride 500 mls @ 500 mls/hr 01/24/24 17:23 01/24/24 18:13 Ns IV 01/24/24 18:22 Infused .Q1H ONE Infusion Iohexol 100 ml 01/24/24 18:56 01/24/24 18:56 Iohexol 350 Mg/Ml 100 Ml Infus..Btl IV 01/24/24 18:57 85 ml ONCE ONE Administration Ketorolac Tromethamine 15 mg 01/24/24 18:11 01/24/24 18:19 Ketorolac Tromethamine 15 Mg/Ml Vial IVPUSH 01/24/24 18:12 15 mg ONCE ONE Administration Discharge Plan Discharge Clinical Impression: Acute UTI, Multifocal pneumonia, Hypoxia, Pneumonia due to SARS-associated coronavirus Patient Disposition: Admitted As Inpatient
[2024-01-24] MEDS: 0.9 % Sodium Chloride 500 ML IV (17:48)
[2024-01-24] MEDS: Acetaminophen 325 MG TABLET 975 MG PO (17:49)
[2024-01-24 17:51] LABS: MANUAL DIFF FLAG NO
[2024-01-24] MEDS: cefTRIAXone sodium 2 GM VIAL IVPUSH (17:51)
--- NOTE | 2024-01-24 18:05 | PC.NURSE ---
Patient arrived with bilateral hearing aids in ears.
[2024-01-24 18:06] LABS: Appearance Urine Cloudy; Basophils Percent Auto 0.4 % (0-2); Color Urine Yellow; Eosinophils Absolute Auto 0.1 X10*3/uL (0.0-0.4); Eosinophils Percent Auto 0.6 % (0-4); Glucose Urine UA Negative (Negative); Hematocrit 35.8 % (37.0-47.0); Hemoglobin 12.2 g/dl (12.0-16.0); Imm Gran Abs Auto 0.07 X10*3/uL (0.00-0.03); Imm Gran Pct Auto 0.6 % (0.0-0.4); Leukocyte Esterase Urine Large (3+) (Negative); Lymphocytes Absolute Auto 1.6 X10*3/uL (1.2-4.9); Lymphocytes Percent Auto 14.7 % (20-40); Mean Corpuscular HGB Conc 34.1 g/dl (31.0-35.0); Mean Corpuscular Hemoglobin 31.2 pg (27.0-33.0); Mean Corpuscular Volume 91.6 fL (80.0-98.0); Mean Platelet Volume 9.3 fL (9.4-12.3); Monocytes Absolute Auto 0.5 X10*3/uL (0.1-1.2); Monocytes Percent Auto 4.7 % (2-11); Neutrophils Absolute Auto 8.7 x10*3/uL (2.0-8.3); Nitrite Urine Negative (Negative); PH 6.5 (5.0-9.0); Platelet Count 437 X10*3/uL (160-400); Red Blood Count 3.91 X10*6/uL (4.20-5.50); Specific Gravity - Urine <= 1.005 (1.005-1.025); UMIC TRIGGER UACC YES; Urine Blood Trace (Negative); Urine Ketones Negative (Negative); Urine Protein Negative (Neg-Trace)
[2024-01-24 18:11] LABS: Bacteria Urine 4+ (None Seen); Hyaline Casts Urine 0-2 /LPF (0-2); Lactic Acid 1.8 mmol/L (0.5-2.0); RBC Urine 0-2 /HPF (0-2); Squamous Epithelial Cell Urine 0-2 /HPF (0-2); UACC Culture Trigger YES; WBC Urine >50 /HPF (0-5)
[2024-01-24 18:17] LABS: Alanine Aminotransferase 6 U/L (0-31); Albumin Level 3.1 g/dL (3.5-5.0); Alkaline Phosphatase 73 U/L (39-117); Anion Gap 15 (12-20); Aspartate Amino Transferase 43 U/L (5-31); Bilirubin Total 0.4 mg/dL (0.0-1.0); Blood Urea Nitrogen 7 mg/dL (9-16); Calcium 8.5 mg/dL (8.4-10.2); Carbon Dioxide 27 mmol/L (22-29); Chloride 98 mmol/L (96-108); Creatinine Clr Calc Pharmacy 45.9; Estimated Glomerular Filt Rate > 60; Glucose Random 104 mg/dL (60-115); Lipase 12 U/L (8-78); Magnesium 2.1 mg/dL (1.6-2.6); Potassium 3.6 mmol/L (3.3-5.1); Sodium 136 mmol/L (135-145); Total Protein 7.7 g/dL (6.5-8.0)
[2024-01-24] MEDS: Ketorolac Tromethamine 15 MG/ML VIAL IVPUSH (18:19)
[2024-01-24] MEDS: iohexoL 350 MG/ML 100 ML INFUS..BTL IV (18:56)
--- OUTSIDE RECORDS SUMMARY | 2024-01-24 18:56 | XMS_ITS | Continuity of Care Document ---
Author Organization [facility] ter Address [address] [place] [id number]- Care Team Providers Care Chief Service Observer Name Role Phone Not on Staff, PCP Primary Care Physician Unavail able Encounter [facility] Date(s): 01/04/24 - 01/05/[address] [address]- Discharge Disposition: A-D/C Home Attending Physician: Freddy Lopez DO Admitting Physician: Freddy Lopez DO Referring Physician: Not on Staff, Referring MD Encounter Type: Disch ES Allergies, Adverse Reactions, Alerts Substance Criticality Severity Reaction Reaction Severity Status traZODone Unformed visual hallucinations Active Medications ALPRAZolam 0.5 mg oral tablet 0.5 mg, 1, tablet, By Mouth, 2 times a day, # 14 tablet, Refills 0, Tot. Refills 0, Acute 01/12/24 6:14:00 PM EST, 01/05/24 6:14:00 PM EST, Print Requisition, Partial fill upon patient request if the prescription is for a schedule II opioid drug. Start Date: 01/05/24 Stop Date: 01/12/24 Status: Ordered Quantity: 14.0 Unit: tablet Repeat number: 1 ALPRAZolam 0.5 mg oral tablet 0.5 mg, 1, tablet, By Mouth, 2 times a day, # 15 tablet, Refills 0, Tot. Refills 0, Maintenance, 01/05/24 2:13:00 PM EST, Print Requisition, Partial fill upon patient request if the prescription is for a schedule II opioid drug. Start Date: 01/05/24 Status: Ordered Quantity: 15.0 Unit: tablet Repeat number: 1 cefpodoxime 100 mg oral tablet 1 tablet = 100 mg, By Mouth, Every 12 hours, for 7 days, # 14 tablet, 0 Refills, Acute 01/11/24 6:16:00 AM EST, 01/04/24 6:16:00 AM EST, Tablet, [facility]/pharmacy #[id number], Partial fill upon patient request if the prescription is for a schedule II opioid drug., 158, cm, 01/04/24 3:00:00 EST, Height, 56.5, kg, 01/04/24 3:00:00 EST, Dry Weight Start Date: 01/04/24 Stop Date: 01/11/24 Status: Ordered Quantity: 14.0 Unit: tablet Repeat number: 1 levothyroxine 100 mcg (0.1 mg) oral capsule 1 capsule = 100 mcg, By Mouth, Daily, # 30 capsule, 1 Refills, Maintenance, 02/10/22 5:30:00 PM EST, [facility]/pharmacy #[id number], Partial fill upon patient request if the prescription is for a schedule II opioid drug. Start Date: 02/10/22 Stop Date: 04/11/22 Status: Ordered Quantity: 30.0 Unit: capsule Repeat number: 2 Synthroid By Mouth, Daily, Refills 0, Maintenance, 02/10/22 9:20:00 AM EST, Partial fill upon patient request if the prescription is for a schedule II opioid drug. Start Date: 02/10/22 Status: Ordered Repeat number: 1 traZODone 100 mg oral tablet 100 mg, 1, tablet, By Mouth, 2 times a day, # 180 tablet, Refills 0, Maintenance, 01/04/24 12:36:00PM EST, Partial fill upon patient request if the prescription is for a schedule II opioid drug. Start Date: 01/04/24 Status: Ordered Quantity: 180.0 Unit: tablet Repeat number: 1 Results Radiology Reports * Exam Date Time Procedure Performing Provider Status 01/04/24 11:26 AM XR Hip w/Pelvis 2-3 View Right Medardo Hernandez; Auth (Verified) Notes: (XR Hip w/Pelvis 2-3 View Right) Reason For Exam: With Pain;Trauma RESULT: XR Hip w/Pelvis 2-3 View Right XR Hip w/Pelvis 2-3 View Right HX OF PRESENT ILLNESS: Coming from home after experiencing a fall on bottom after legs giving out. Found on floor with slippers on wrong feet. No blood thinners. No injury noted. No head strike, no loc. 5 10 pain. Hx anxiety. Pt refused c-collar.; Reason: Trauma; With Pain; Clinical Question(s): Fracture COMPARISON: None. FINDINGS: There is no fracture or dislocation. Normal hips and sacroiliac joints. Normal soft tissues. IMPRESSION: No evidence of acute osseous abnormality. WSN: [id number] Ordering Physician: Aleisha Carbone Dictated By: Wilfred Gallardo MD Dictated Date/Time: 01/04/24 11:31 a Reviewed By: Wilfred Gallarod MD Signed By: Wilfred Gallardo MD Signed Date/Time: 01/04/24 11:31 am Transcribed By: DARIO Transcribed Date/Time: 01/04/24 11:30 am * Exam Date Time Procedure Performing Provider Status 01/04/24 4:46 AM Tibia/Fibula 2 Views Right Mariam Garcia; Auth (Verified) Notes: (Tibia/Fibula 2 Views Right) Reason For Exam: with Pain;Trauma RESULT: Tibia/Fibula 2 Views Right Tibia/Fibula 2 Views Right Hx of Present Illness: Coming from home after experiencing a fall on bottom after legs giving out. Foud on floor with slippers on wrong feet. no blood thinners. no injury noted. no head strike, no loc. 5 10 pain. hx anxiety. pt refused c-collar.; Reason: Trauma; with Pain; Clinical Question(s): Fracture COMPARISON: None. FINDINGS: No fractures or bone lesions. Moderate knee arthropathy. Deformity of the lateral tibial plateau may be related to chronic fracture. Normal soft tissues. IMPRESSION: No acute abnormality. WSN: [id number] Ordering Physician: Angeline Betts Dictated By: Dionicio Silva MD Dictated Date/Time: 01/04/24 7:30 am Reviewed By: Dionicio Silva MD Signed By: Dionicio Silva MD Signed Date/Time: 01/04/24 7:30 am Transcribed By: DARIO Transcribed Date/Time: 01/04/24 7:29 am * Exam Date Time Procedure Performing Provider Status 01/04/24 5:[address] Cervical Spine W/ O Contrast Allegra Duarte Auth (Verified) Notes: (CT Cervical Spine W/O Contrast) Reason For Exam: Neck trauma, dangerous injury mechanism;Other: RESULT: CT Cervical Spine W/O Contrast CT Head/Brain W/O Contrast, CT Cervical Spine W/O Contrast INDICATION: Hx of Present Illness: Coming from home after experiencing a fall on bottom after legs giving out. Found on floor with slippers on wrong feet. no blood thinners. no injury noted. no head strike, no loc. 5 10 pain. hx anxiety. pt refused c-collar.; Reason: Trauma; Clinical Question(s): Hematoma TECHNIQUE: Noncontrast head CT using axial technique was reconstructed in axial and coronal planes.Noncontrast spiral CT through the cervical spine was formatted in 3 planes. Automatic tube modulation was used for the cervical spine and iterative dose reconstruction was used for both the head and cervical spine to optimize scan parameters and image quality. CTDIvol Body: 8.90 mGy, DLP Body: 202 mGy*cm. CTDIvol Head: 39.90 mGy, DLP Head: 1343 mGy*cm. COMPARISON: None. FINDINGS: Salvage Engineer View Findings, Lines and Tubes: None. BRAIN AND EXTRA-AXIAL SPACES: No parenchymal hemorrhage, midline shift, or mass effect. Baeza-white matter differentiation is wellpreserved. No acute infarct. Negative insular ribbon sign. Atherosclerotic vascular calcification of the carotid arteries but negative hyperdense vessel sign. Mild prominence of the ventricles and sulci consistent with parenchymal volume loss. Mild low-density white matter changes. No subarachnoid hemorrhage. No subdural or epidural collection. CALVARIUM, SKULL BASE, AND SOFT TISSUES: No fractures or suspicious bony lesions. The paranasal sinuses and mastoid air cells are clear. Visualized orbits and globes are intact. The extracranial soft tissues are unremarkable. CERVICAL SPINE: No fracture. No acute osseous abnormalities. C1-C2 degenerative change with minor calcification/CPPD. Reverse lordosis of the cervical spine centered at C5-T1. Grade 1 retrolisthesis of C5 on C6 with moderate central canal narrowing. Moderate multilevel degenerative disc space narrowing and end plateirregularity. OTHER BONES: No acute abnormality. CERVICAL SOFT TISSUES AND LUNG APICES: Normal soft tissues. Visualized lung apices are clear. Normal thyroid. IMPRESSION: No acute abnormality of the head or cervical spine. I have personally reviewed the images and I agree with this report. WSN: [id number] Ordering Physician: Angeline Betts By: Ender Lundberg MD Dictated Date/Time: 01/04/24 7:52 am Reviewed By: Wilfred Edmond MD Signed By: Wilfred Edmond MD Signed Date/Time: 01/04/24 7:57 am Transcribed By: DARIO Transcribed Date/Time: 01/04/24 7:08 am * Exam Date Time Procedure Performing Provider Status 01/04/24 5:[address] Head/Brain W/O Contrast Allegra Galarza (Verified) Notes: (CT Head/Brain W/O Contrast) Reason For Exam: Trauma RESULT: CT Head/Brain W/O Contrast CT Head/Brain W/O Contrast, CT Cervical Spine W/O Contrast INDICATION: Hx of Present Illness: Coming from home after experiencing a fall on bottom after legs giving out. Found on floor with slippers on wrong feet. no blood thinners. no injury noted. no head strike, no loc. 5 10 pain. hx anxiety. pt refused c-collar.; Reason: Trauma; Clinical Question(s): Hematoma TECHNIQUE: Noncontrast head CT using axial technique was reconstructed in axial and coronal planes.Noncontrast spiral CT through the cervical spine was formatted in 3 planes. Automatic tube modulation was used for the cervical spine and iterative dose reconstruction was used for both the head and cervical spine to optimize scan parameters and image quality. CTDIvol Body: 8.90 mGy, DLP Body: 202 mGy*cm. CTDIvol Head: 39.90 mGy, DLP Head: 1343 mGy*cm. COMPARISON: None. FINDINGS: Salvage Engineer View Findings, Lines and Tubes: None. BRAIN AND EXTRA-AXIAL SPACES: No parenchymal hemorrhage, midline shift, or mass effect. Baeza-white matter differentiation is wellpreserved. No acute infarct. Negative insular ribbon sign. Atherosclerotic vascular calcification of the carotid arteries but negative hyperdense vessel sign. Mild prominence of the ventricles and sulci consistent with parenchymal volume loss. Mild low-density white matter changes. No subarachnoid hemorrhage. No subdural or epidural collection. CALVARIUM, SKULL BASE, AND SOFT TISSUES: No fractures or suspicious bony lesions. The paranasal sinuses and mastoid air cells are clear. Visualized orbits and globes are intact. The extracranial soft tissues are unremarkable. CERVICAL SPINE: No fracture. No acute osseous abnormalities. C1-C2 degenerative change with minor calcification/CPPD. Reverse lordosis of the cervical spine centered at C5-T1. Grade 1 retrolisthesis of C5 on C6 with moderate central canal narrowing. Moderate multilevel degenerative disc space narrowing and end plateirregularity. OTHER BONES: No acute abnormality. CERVICAL SOFT TISSUES AND LUNG APICES: Normal soft tissues. Visualized lung apices are clear. Normal thyroid. IMPRESSION: No acute abnormality of the head or cervical spine. I have personally reviewed the images and I agree with this report. WSN: [id number] Ordering Physician: Angeline Betts Dictated By: Ender Lundberg MD Dictated Date/Time: 01/04/24 7:52 am Reviewed By: Wilfred Edmond MD Signed By: Wilfred Edmond MD Signed Date/Time: 01/04/24 7:57 am Transcribed By: DARIO Transcribed Date/Time: 01/04/24 7:08 am * Exam Date Time Procedure Performing Provider Status 01/04/24 4:27 AM US Doppler Ext Lower Venous Right Jenny Elliott; Charissa (Verified) Notes: (US Doppler Ext Lower Venous Right) Reason For Exam: Pain in limb;Other: RESULT: US Doppler Ext Lower Venous Right US Doppler Ext Lower Venous Right Hx of Present Illness: Coming from home after experiencing a fall on bottom after legs giving out. Found on floor with slippers on wrong feet. no blood thinners. no injury noted. no head strike, no loc. 5 10 pain. hx anxiety. pt refused c-collar.; Reason: Other:; Pain in limb; Clinical Question(s):Thrombus COMPARISON: None IMAGING TECHNIQUE: Ultrasound of the veins from the groin through the calf was performed using grayscale, color, and spectral Doppler ultrasound assessing for complete compressibility and normal flowcharacteristics. FINDINGS: Common femoral vein: Patent. No thrombosis. Femoral vein: Patent. No thrombosis. Popliteal vein: Patent. No thrombosis. Gastrocnemius veins: The visualized portions are patent without evidence of thrombosis. Peroneal veins: The visualized portions are patent without evidence of thrombosis. Posterior tibial veins: The visualized portions are patent without evidence of thrombosis. Contralateral common femoral vein: Patent. No thrombosis. OTHER FINDINGS: None. IMPRESSION: No evidence of deep venous thrombosis. I have personally reviewed the images and I agree with this report. WSN: [id number] Ordering Physician: Mirella Pugh Dictated By: Ender Lundberg MD Dictated Date/Time: 01/04/24 6:57 am Reviewed By: Wilfred Edmond MD Signed By: Wilfred Edmond MD Signed Date/Time: 01/04/24 7:02 am Transcribed By: DARIO Transcribed Date/Time: 01/04/24 4:42 am Vital Signs Most recent to oldest [Reference Range]: 1 2 3 Height 158 cm (01/05/24 4:13 AM) 158 cm (01/04/24 11:59 AM) 158 cm (01/04/24 1:59 AM) Weight 56.5 kg (01/05/24 4:13 AM) 56.5 kg (01/04/24 11:59 AM) 56.5 kg (01/04/24 8:08 AM) Oxygen Saturation [94-100 %] 96 % (01/05/24 6:21 PM) 96 % (01/05/24 5:05 PM) 97 % (01/05/24 12:32 PM) Pulse Rate [55-90 bpm] 85 bpm (01/05/24 6:21 PM) 87 bpm (01/05/24 5:05 PM) 77 bpm (01/05/24 12:32 PM) Body Mass Index [18.5-24.99 kg/m2] 22.63 kg/m2 (01/05/24 4:13 AM) 22.63 kg/m2 (01/04/24 11:59 AM) Blood Pressure [90-138/55-84 mm Hg] 145/88mm Hg *H* (01/05/24 6:21 PM) 166/99mm Hg *H* (01/05/24 5:05 PM) 132/92mm Hg (01/05/24 12:32 PM) Respiratory Rate [16-30 br/min] 16 br/min (01/05/24 6:21 PM) 16 br/min (01/05/24 5:05 PM) 16 br/min (01/05/24 12:32 PM) Temperature [96.8-100.4 DegF] 97.9 DegF (01/05/24 8:04 AM) 97.9 DegF (01/05/24 4:13 AM) 98.1 DegF (01/04/24 11:59 AM) Mode of Delivery (Oxygen) Room air (01/05/24 6:21 PM) Room air (01/05/24 5:05 PM) Room air (01/05/24 12:32 PM) Blood pressure sites Arm, right (01/05/24 6:21 PM) Arm, right (01/05/24 5:05 PM) Arm, right (01/05/24 12:32 PM) Temperature Route Oral (01/05/24 8:04 AM) Oral (01/05/24 4:13 AM) Oral (01/04/24 11:59 AM) Dry Weight 56.5 kg (01/05/24 4:13 AM) 56.5 kg (01/04/24 4:00 PM) 56.5 kg (01/04/24 11:59 AM) Weight Obtained Via Patient/family state d (01/04/24 1:59 AM) Dry Weight Obtained Via Patient/family s tated (01/04/24 1:59 AM) EKG study * Event Display: ECG 12-Lead Authored Date: Please click on pdf link to open report * Event Display: ECG 12-Lead Authored Date: Ventricular Rate: 72 BPM Atrial Rate: 72 BPM P-R Interval: 162 ms QRS Duration: 82 ms Q-T Interval: 398 ms QTC Calculation(Bazett): 435 ms P [place]: 19 degrees R [place]: -22 degrees T [place]: 1 degrees Normal sinus rhythm Minimal voltage criteria for LVH, may be normal variant ( R in aVL ) Borderline ECG When compared with ECG of 14-Feb-2022 19:54, No significant change was found Confirmed by Dipak Crowe ([id number]) on 01/05/2024 6:58:28 AM [place]: Dipak Crowe Note * Yael Bledsoe RN: PERFORM, SIGN, VERIFY Event Display: Case Management Discharge Plan Authored Date: [id number] Patient: LETY BARKER Age: 88 years Sex: Female : 1935 Associated Diagnoses: None Author: Yael Bledsoe RN Discharge Plan Case Management Discharge Plan : Case Management Discharge Plan Data 01/05/2024 13:27 EST Discharge Level of Care at Discharge jail facility Discharge Nursing Homes/Rehab Facilities Suraj Maurer Discharge Transportation Arranged [facility] Dwight Hernandez [facility] [id number] [phone] Discharge Arranged Transport Date/Time 01/05/2024 15:00 Mode of Transportation Arranged Ambulance Name of Agency #1 [facility] dian Maurer Service Categories #1 Occupational Therapy, Physical Therapy Service Comments #1 [facility] Name of Person Notified of Transfer you/ your dtr Yesenia * Angeline Gong: PERFORM Event Display: Patient Education Leaflets Authored Date: [id number] Bladder Infection,??Female (Adult) ?? [id number] Bladder Infection,??Female (Adult) Urine normally doesn't have any germs (bacteria) in it. But bacteria can get into the urinary tractfrom the skin around the rectum. Or they can travel in the blood from other parts of the body. Oncethey are in your urinary tract, they can cause infection in these areas: ??? The urethra (urethritis) ??? The bladder (cystitis) ??? The kidneys (pyelonephritis) The most common place for an infection is in the bladder. This is called a bladder infection. This is one of the most common infections in women because women have a shorter urethra than men. Bacteria have a shorter distance to travel to reach the bladder.. Women who have gone through menopause also lose the protection from estrogen that lowers the chance of getting a UTI. And some women are at higher risk because of their genes. Most bladder infections are easily treated. They are not serious unless the infection spreads to the kidney. The terms bladder infection, UTI, and cystitis are often used to describe the same thing. But they are not always the same. Cystitis is an inflammation of the bladder. The??most common cause of cystitis is an infection. Symptoms The infection causes inflammation in the urethra and bladder. This causes many of the symptoms. Themost common symptoms of a bladder infection are: ??? Pain or burning when urinating ??? Having to urinate more often than normal ??? Urgent need to urinate ??? Only a small amount of urine comes out ??? Blood in urine ??? Belly (abdominal) discomfort. This is often in the lower belly above the pubic bone. ??? Lower back pain ??? Cloudy urine ??? Strong- or bad-smelling urine ??? Unable to urinate(urinary retention) ??? Unable to hold urine in (urinary incontinence) ??? Fever ??? Loss of appetite ??? Confusion (in older adults) ?? Causes Bladder infections are not contagious. You can't get one from someone else, from a toilet seat, or from sharing a bath. The most common cause of bladder infections is bacteria from the bowels. The bacteria get onto the skin around the opening of the urethra. From there, they can get into the urine. Then they travel upto the bladder, causing inflammation and infection. This often happens because of: ??? Wiping incorrectly after urinating. Always wipe from front to back. ??? Bowel incontinence ??? . Duringpregnancy urinary tract changes raise the risk for infection. ??? Procedures such as having a catheter put in ??? Older age ??? Not emptying your bladder. This can give bacteria a chance to grow in your urine. ??? Fluid loss (dehydration) ??? Constipation ??? Having sex ??? Using a diaphragm for control? Treatment Bladder infections are diagnosed by a urine test and urine culture. They are treated with antibiotics. They often??clear up quickly without problems. Treatment helps prevent a more serious kidney infection. ?? Medicines Medicines can help in the treatment of a bladder infection: ??? Take antibiotics until they are used up, even if you feel better. It's important to finish them to make sure the infection has cleared.??? You can use acetaminophen or ibuprofen for pain, fever, or discomfort, unless another medicine was prescribed. If you have long-term (chronic) liver or kidney disease, talk with your healthcare??provider before using??these medicines. Also talk with your provider if you've ever had a stomach ulcer or GI (gastrointestinal) bleeding, or are taking blood-thinner medicines. ??? If you are given??phenazopydridine to reduce burning with urination, it will make your urine a bright orange color. This can stain clothing. ?? Care and prevention These self-care steps can help prevent future infections: ??? Drink plenty of fluids. This helps toprevent dehydration and flush out your bladder. Do this??unless you must restrict fluids for other health reasons, or your healthcare provider told you not to. ??? Clean yourself correctly after going to the bathroom. Wipe from front to back after using the toilet. This helps prevent the spread of bacteria. ??? Urinate more often. Don't try to hold urine in for a long time. ??? Wear loose-fittingclothes and cotton underwear. Don't wear tight- fitting pants. ??? Improve your diet and prevent constipation. Eat more fresh fruits and vegetables, and??fiber. Eat less junk foods and fatty foods. ??? Don't have sex until your symptoms are gone. ??? Don't have caffeine, alcohol, and spicy foods. These can irritate your bladder. ??? Urinate right after you have sex to flush out your bladder. ??? If you use control pills and have frequent bladder infections, discuss it with your healthcare provider. ?? Follow-up care Call your healthcare provider if all symptoms are not gone after 3 days of treatment. This is especially important if you have repeat infections. If a culture was done, you will be told if your treatment needs to be changed. If directed, you cancall??to find out the results. If X-rays were done, you will be told if the results will affect your??treatment. ?? Call 911 Call 911 if any of the following occur: ??? Trouble breathing ??? Hard to wake up or??confusion ???Fainting (loss of consciousness) ??? Fast heart rate ?? When to get medical advice Call your healthcare provider right away if any of these occur: ??? Fever of 100.4??F (38.0??C) or higher, or as directed by your healthcare provider ??? Symptoms are not better??after 3 days of treatment ??? Symptoms get worse or you have new symptoms ??? Back or belly pain that gets worse ??? Repeated vomiting, or unable to keep medicine down ??? Weakness or dizziness ??? Vaginal discharge ??? Pain, redness, or swelling in the outer vaginal area (labia) ?? Last Reviewed Date: 2021 ?? [employer]. All rights reserved. This information is not intended as a substitute for professional medical care. Always follow your healthcare professional's instructions. ?? Patient Care team information Care Team Personnel Name: Not on Staff, PCP Position: S Physician (General Medicine) Member Role: PCP Care Team Related Persons Name: ANDREA BARKER Insurance Providers Guarantor name: [employer] Health Plan Information #: 1 Payer: [employer] Member Number: [id number] Policy Number: NA Group Number: [id number] Health Plan Information #: 2 Payer: [employer] Member Number: [id number] Policy Number: NA Group Number: [id number]
--- OUTSIDE RECORDS SUMMARY | 2024-01-24 18:56 | XMS_ITS | Clinical Summary ---
Author Organization Unknown Care Team Providers Care Pull Over Name Role Phone TINA CRUMP MD, MERLIN Unavailable Unavail able KENYA LESTER, AVERY Unavailable Unavailab atiya JADE LPN, MARIA VICTORIA Unavailable Unavail able BINA PT, DONNY Unavailable Unavailable [employer] FINISHER, IRENE Unavailable Unavailable Payers Payer Name Policy Type Policy Number Effective Date Expira tion Date [employer]IS[employer].AUTH [id number] Problems Condition Name Condition Details Condition Category Status Onset Date Resolution Date Last Treatment Date Treating Clinician Comments URINARY TRACT INFECTION, SITE NOT SPECIFIED Active 2023-02 00:00: 00 ENTEROCOCCUS THE CAUSE OF DISEASES CLASSIFIED ELSEWHERE Active 2023-02 00:00: 00 HYPOTHYROIDI SM, UNSPECIFIED Active 02-10 00:00: 00 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 Ordering Clinician Indication Dosage Frequency Signature (SIG) Comments Components alprazolam 0.5 mg tablet 2023-02 00:00: 00 Yes [id number] ANXIETY 1 tablet TWICE A DAY 1 tablet TWICE A DAY (route: oral) Med Classific ation: Central Nervous System Agents levothyroxi ne 88 mcg tablet 11-04 00:00: 00 Yes [id number] THYROID 1 tablet EVERY DAY 1 tablet EVERY DAY (route: oral) Med Classific ation: Endocrine acetaminoph en 325 mg tablet 2023-02 00:00: 00 Yes [id number] PAIN 2 tablet EVERY 4 HOURS 2 tablet EVERY 4 HOURS (route: oral) Med Classific ation: Analgesic , Anti-infl ammatory or Antipyret ic trazodone 100 mg tablet 2023-02 00:00: 00 Yes [id number] INSOMNIA 2 tablet BEDTIME 2 tablet BEDTIME (route: oral) Med Classific ation: Central Nervous System Agents Vital Signs Vital Name Observation Time Observation Value Commen ts Temperature 2024-01-22 10:34:00.000 98.6 [degF] Temperature 2024-01-17 11:30:00.000 97.6 [degF] Temperature 2024-01-02 12:14:00.000 97.3 [degF] Temperature 2023-12-19 13:13:00.000 98.3 [degF] Temperature 2023-12-12 13:17:00.000 97.6 [degF] Temperature 2023-12-12 10:49:00.000 97.5 [degF] Temperature 2023-12-05 14:01:00.000 97.2 [degF] BMI (%) 2024-01-17 11:05:29.000 23 kg/m2 BMI (%) 2023-12-05 10:44:43.000 22 kg/m2 Height 2024-01-17 11:05:20.000 62 [in_us] Height 2023-12-05 10:44:26.000 62 [in_us] Pulse 2024-01-22 10:34:00.000 76 /min Pulse 2024-01-17 11:30:00.000 68 /min Pulse 2024-01-02 12:14:00.000 70 /min Pulse 2023-12-19 13:13:00.000 76 /min Pulse 2023-12-12 13:17:00.000 76 /min Pulse 2023-12-12 10:49:00.000 70 /min Pulse 2023-12-05 14:01:00.000 72 /min O2 Saturation (%) 2024-01-22 10:34:00.000 92 % O2 Saturation (%) 2023-12-12 13:18:00.000 99 % O2 Saturation (%) 2023-12-05 14:01:00.000 99 % Respirations 2024-01-22 10:34:00.000 18 /min Respirations 2024-01-17 11:30:00.000 18 /min Respirations 2024-01-02 12:14:00.000 18 /min Respirations 2023-12-19 13:13:00.000 18 /min Respirations 2023-12-12 13:17:00.000 18 /min Respirations 2023-12-12 10:49:00.000 18 /min Respirations 2023-12-05 14:01:00.000 18 /min Weight (lbs) 2024-01-17 11:05:29.000 126 [lb_av] Weight (lbs) 2023-12-05 10:44:43.000 123 [lb_av] Systolic Blood Pressure 2024-01-22 10:34:00.000 112 mm [Hg] Systolic Blood Pressure 2024-01-17 11:30:00.000 122 mm [Hg] Systolic Blood Pressure 2024-01-02 12:14:00.000 130 mm [Hg] Systolic Blood Pressure 2023-12-19 13:13:00.000 124 mm [Hg] Systolic Blood Pressure 2023-12-12 13:17:00.000 148 mm [Hg] Systolic Blood Pressure 2023-12-12 10:49:00.000 108 mm [Hg] Systolic Blood Pressure 2023-12-05 14:01:00.000 126 mm [Hg] Diastolic Blood Pressure 2024-01-22 10:34:00.000 74 mm [Hg] Diastolic Blood Pressure 2024-01-17 11:30:00.000 68 mm [Hg] Diastolic Blood Pressure 2024-01-02 12:14:00.000 70 mm [Hg] Diastolic Blood Pressure 2023-12-19 13:13:00.000 64 mm [Hg] Diastolic Blood Pressure 2023-12-12 13:17:00.000 78 mm [Hg] Diastolic Blood Pressure 2023-12-12 10:49:00.000 68 mm [Hg] Diastolic Blood Pressure 2023-12-05 14:01:00.000 68 mm [Hg] Plan of Treatment Planned Activity Planned Date Details Comments Future Scheduled Test RN TO OBSE RVE, ASSESS, EVALUATE, AND DEVELOP AN INDIVIDUALIZED PLAN OF CARE. AGENCY MAY ACCEPT ORDERS FROM CONSULTING PHYSICIANS. RN TO OBSERVE AND ASSESS, UTILITY LOCATOR/KENNEL HELPER TO OBSERVE FOR RISK FOR FALLS AND INSTRUCT IN FALL PREVENTION, HOME SAFETY, MEDICATION MANAGEMENT, INFECTION PREVENTION, AND NUTRITION MANAGEMENT. RN/UTILITY LOCATOR/KENNEL HELPER NURSE MAY PERFORM O2 SATURATION LEVEL ON ADMISSION AND PRN FOR RN TO ASSESS/UTILITY LOCATOR TO OBSERVE PATIENT, WITH NOTIFICATION TO THE PHYSICIAN IF SATURATION IS 90% IN THE ABSENCE OF MORE SPECIFIC PARAMETERS FROM THE PHYSICIAN. AGENCY MAY PERFORM A RESUMPTION OF CARE VISIT FOLLOWING ANY HOSPITAL ADMISSION. RN/UTILITY LOCATOR/KENNEL HELPER TO MONITOR CO-MORBID CONDITIONS LISTED ON THE PLAN OF CARE AND ANY NEW CONDITIONS THAT PRESENT THEMSELVES DURING THIS EPISODE TO IDENTIFY CHANGES AND INTERVENE TO MINIMIZE COMPLICATIONS. [code = RN TO OBSERVE, ASSESS, EVALUATE, AND DEVELOP AN INDIVIDUALIZED PLAN OF CARE. AGENCY MAY ACCEPT ORDERS FROM CONSULTING PHYSICIANS. RN TO OBSERVE AND ASSESS, UTILITY LOCATOR/KENNEL HELPER TO OBSERVE FOR RISK FOR FALLS AND INSTRUCT IN FALL PREVENTION, HOME SAFETY, MEDICATION MANAGEMENT, INFECTION PREVENTION, AND NUTRITION MANAGEMENT. RN/UTILITY LOCATOR/KENNEL HELPER NURSE MAY PERFORM O2 SATURATION LEVEL ON ADMISSION AND PRN FOR RN TO ASSESS/UTILITY LOCATOR TO OBSERVE PATIENT, WITH NOTIFICATION TO THE PHYSICIAN IF SATURATION IS 90% IN THE ABSENCE OF MORE SPECIFIC PARAMETERS FROM THE PHYSICIAN. AGENCY MAY PERFORM A RESUMPTION OF CARE VISIT FOLLOWING ANY HOSPITAL ADMISSION. RN/UTILITY LOCATOR/KENNEL HELPER TO MONITOR CO-MORBID CONDITIONS LISTED ON THE PLAN OF CARE AND ANY NEW CONDITIONS THAT PRESENT THEMSELVES DURING THIS EPISODE TO IDENTIFY CHANGES AND INTERVENE TO MINIMIZE COMPLICATIONS.] Future Scheduled Test MEDICATION MANAGEMENT; RN/UTILITY LOCATOR/KENNEL HELPER TO REVIEW MEDICATIONS FOR INTERACTIONS, EFFECTIVENESS OF DRUG THERAPY, AND SIGNS/SYMPTOMS OF ADVERSE REACTIONS. MAY INSTRUCT AND REINFORCE MEDICATION TEACHING RELATED TO THE USE OF MEDICATIONS, DOSAGE, FREQUENCY, PURPOSE, SIDE EFFECTS, AND TO REPORT COMPLICATIONS. [code = MEDICATION MANAGEMENT; RN/UTILITY LOCATOR/KENNEL HELPER TO REVIEW MEDICATIONS FOR INTERACTIONS, EFFECTIVENESS OF DRUG THERAPY, AND SIGNS/SYMPTOMS OF ADVERSE REACTIONS. MAY INSTRUCT AND REINFORCE MEDICATION TEACHING RELATED TO THE USE OF MEDICATIONS, DOSAGE, FREQUENCY, PURPOSE, SIDE EFFECTS, AND TO REPORT COMPLICATIONS.] Future Scheduled Test RISK FOR H OSPITALIZATION; RN TO ASSESS/TEACH, KENNEL HELPER/UTILITY LOCATOR TO OBSERVE/TEACH PATIENT/CAREGIVER ON RISK FOR HOSPITALIZATION/EMERGENCY ROOM VISITS, TEACH SIGNS AND SYMPTOMS THAT PUT PATIENT AT RISK, WHEN TO NOTIFY NURSE/PHYSICIAN OF COMPLICATIONS/DECLINE, AND WHEN TO CALL 911. [code = RISK FOR HOSPITALIZATION; RN TO ASSESS/TEACH, KENNEL HELPER/UTILITY LOCATOR TO OBSERVE/TEACH PATIENT/CAREGIVER ON RISK FOR HOSPITALIZATION/EMERGENCY ROOM VISITS, TEACH SIGNS AND SYMPTOMS THAT PUT PATIENT AT RISK, WHEN TO NOTIFY NURSE/PHYSICIAN OF COMPLICATIONS/DECLINE, AND WHEN TO CALL 911.] Future Scheduled Test PAIN MANAG EMENT; RN TO ASSESS AND TEACH, KENNEL HELPER/UTILITY LOCATOR TO OBSERVE AND TEACH AND PROVIDE EDUCATION ON PAIN MANAGEMENT TECHNIQUES. [code = PAIN MANAGEMENT; RN TO ASSESS AND TEACH, KENNEL HELPER/UTILITY LOCATOR TO OBSERVE AND TEACH AND PROVIDE EDUCATION ON PAIN MANAGEMENT TECHNIQUES.] Future Scheduled Test GENITOURIN AMADO MANAGEMENT; RN TO ASSESS AND TEACH, UTILITY LOCATOR/KENNEL HELPER TO OBSERVE AND TEACH RELATED TO ALTERED GENITOURINARY STATUS TO MINIMIZE COMPLICATIONS AND REDUCE HOSPITALIZATION. [code = GENITOURINARY MANAGEMENT; RN TO ASSESS AND TEACH, UTILITY LOCATOR/KENNEL HELPER TO OBSERVE AND TEACH RELATED TO ALTERED GENITOURINARY STATUS TO MINIMIZE COMPLICATIONS AND REDUCE HOSPITALIZATION.] Future Scheduled Test URINARY IN CONTINENCE MANAGEMENT; RN TO ASSESS AND TEACH, UTILITY LOCATOR/LVNTO OBSERVE AND TEACH MANAGEMENT OF URINARY INCONTINENCE. TEACH/INSTRUCT ON PREVENTING INFECTION AND SKIN BREAKDOWN. RN/UTILITY LOCATOR/KENNEL HELPER MAY INSTRUCT IN BLADDER TRAINING PROGRAM INDICATED. [code = URINARY INCONTINENCE MANAGEMENT; RN TO ASSESS AND TEACH, UTILITY LOCATOR/LVNTO OBSERVE AND TEACH MANAGEMENT OF URINARY INCONTINENCE. TEACH/INSTRUCT ON PREVENTING INFECTION AND SKIN BREAKDOWN. RN/UTILITY LOCATOR/KENNEL HELPER MAY INSTRUCT IN BLADDER TRAINING PROGRAM INDICATED.] Future Scheduled Test FALL REDUC TION MANAGEMENT; RN TO ASSESS AND TEACH, UTILITY LOCATOR/KENNEL HELPER TO OBSERVE AND TEACH ON EDUCATION AND INTERVENTION TO IDENTIFY FALL RISK FACTORS SUCH MEDICATIONS THAT MAY CAUSE DIZZINESS, CHRONIC DISEASES, PSYCHOLOGICAL FACTORS, AND EMPOWER/EDUCATE PATIENT/CAREGIVER TO MINIMIZE FALL RISK. [code = FALL REDUCTION MANAGEMENT; RN TO ASSESS AND TEACH, UTILITY LOCATOR/KENNEL HELPER TO OBSERVE AND TEACH ON EDUCATION AND INTERVENTION TO IDENTIFY FALL RISK FACTORS SUCH MEDICATIONS THAT MAY CAUSE DIZZINESS, CHRONIC DISEASES, PSYCHOLOGICAL FACTORS, AND EMPOWER/EDUCATE PATIENT/CAREGIVER TO MINIMIZE FALL RISK.] Goal 2024-01-17 Patient Goal - TO REMAIN SAF E AT HOME Goal Patient Goal - TO REMAIN SAF E AT HOME Goal Provider Goal - A PLAN OF CARE WILL BE ESTABLISHED THAT MEETS THE PATIENTS NEEDS. PATIENT WILL DEMONSTRATE OXYGEN SATURATION WITHIN NORMAL LIMITS OR PATIENTS OPTIMAL LEVEL ESTABLISHED BY THE PHYSICIAN THROUGHOUT CARE. CHANGES TO CO-MORBID CONDITIONS AND ANY NEW CONDITIONS WILL BE IDENTIFIED AND REPORTED TO THE PHYSICIAN. Goal Provider Goal - PATIENT/CAREGIVER TO VERBALIZE, AND CONSISTENTLY DEMONSTRATE EFFECTIVE, SAFE MANAGEMENT OF MEDICATION INCLUDING KNOWLEDGE OF EFFECTIVENESS, POTENTIAL SIDE EFFECTS AND DRUG REACTIONS AND WHEN TO CONTACT THE APPROPRIATE CARE PROVIDER. PATIENT/CAREGIVER WILL BE ABLE TO VERBALIZE UNDERSTANDING OF MEDICATION REGIMEN AND ACCURATELY TAKE MEDICATIONS PRESCRIBED WITHOUT ADVERSE EFFECTS BY 02/01 Goal Provider Goal - PATIENT/CAREGIVER WILL VERBALIZE UNDERSTANDING OF SIGNS AND SYMPTOMS THAT PUT THE PATIENT AT RISK FOR HOSPITALIZATION /EMERGENCY ROOM VISITS, WHEN TO NOTIFY NURSE/PHYSICIAN OF COMPLICATIONS/DECLINE AND WHEN TO CALL 911. Goal Provider Goal - PATIENT / CAREGIVER WILL VERBALIZE / DEMONSTRATE UNDERSTANDING OF PAIN CONTROL MEASURES BY 02/01 Goal Provider Goal - PATIENT / CAREGIVER WILL VERBALIZE/DEMONSTRATE UNDERSTANDING OF MEASURES TO MANAGE ALTERED GENITOURINARY STATUS BY END OF EPISODE. Goal Provider Goal - PATIENT/CAREGIVER WILL VERBALIZE/DEMONSTRATE UNDERSTANDING OF CARE AND MANAGEMENT OF URINARY INCONTINENCE BY 02/01 Goal Provider Goal - PATIENT/CAREGIVER ABLE TO IDENTIFY FALL RISK FACTORS AND IMPLEMENT STRATEGIES TO MINIMIZE FALL RISK. PATIENT/CAREGIVER WILL VERBALIZE/DEMONSTRATE AN ABILITY TO ADHERE TO FALL REDUCTION SELF-MANAGEMENT AND LIFE-STYLE CHANGES AT DISCHARGE. PERSONAL GOAL(S) STATED BY PATIENT/CAREGIVER WILL BE MET BY 02/01 Encounters Start Date/Time End Date/Time Encounter Type Admission Type Attending [facility] Care Department Encounter ID Discharge Date Discharge Status Discharge Condition Discharge Reason Percent Goals Met 2023-12-05 00:00:00 2024-02-02 00:00:00 Outpatient NEW ADMISSION AV[facility] [id number] 25.00
--- OUTSIDE RECORDS SUMMARY | 2024-01-24 18:56 | XMS_ITS | Clinical Summary ---
Author Organization Unknown Care Team Providers Care Finish Cleaner Name Role Phone TINA CRUMP MD, MERLIN Unavailable Unavail able KENYA LESTER, AVERY Unavailable Unavailab atiya DEY LPN, TIARRA Unavailable Maura vailable CURRAN PT, DONNY Unavailable Unavailable [facility] SIGNAL WIRER, IRENE Unavailable Unavailable [facility] OT, CRYS Unavailable Unavailable CONDINO STEPAN/ROMERO, ANA Unavailable Unav ailable Payers Payer Name Policy Type Policy Number Effective Date Expira tion Date HUMANA.MA2.PPO.C.AUTH [id number] Problems Condition Name Condition Details Condition Category Status Onset Date Resolution Date Last Treatment Date Treating Clinician Comments URINARY TRACT INFECTION, SITE NOT SPECIFIED Active 08-14 00:00: 00 HYPOTHYROIDI SM, UNSPECIFIED Active 08-14 00:00: 00 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 Ordering Clinician Indication Dosage Frequency Signature (SIG) Comments Components alprazolam 0.5 mg tablet 07-31 00:00: 00 Yes [id number] ANXIETY Per instruc tions TWICE A DAY Per instructio ns TWICE A DAY (route: oral) Med Classific ation: Central Nervous System Agents levothyroxi ne 88 mcg tablet 07-22 00:00: 00 Yes [id number] DAILY Per instruc tions EVERY DAY Per instructio ns EVERY DAY (route: oral) Med Classific ation: Endocrine trazodone 100 mg tablet 07-17 00:00: 00 Yes [id number] SLEEP Per instruc tions AT BEDTIME NEEDED Per instructio ns AT BEDTIME NEEDED (route: oral) Med Classific ation: Central Nervous System Agents alprazolam 0.5 mg tablet 07-16 00:00: 00 08-21 23:59 :00 No [id number] ANXIETY Per instruc tions TWICE A DAY Per instructio ns TWICE A DAY (route: oral) Med Classific ation: Central Nervous System Agents ofloxacin 0.3 % eye drops 07-16 00:00: 00 08-21 23:59 :00 No [id number] INFECTION Per instruc tions 4 TIMES A DAY FOR 7 DAYS Per instructio ns 4 TIMES A DAY FOR 7 DAYS (route: ophthalmic (eye)) Med Classific ation: Ophthalmi c Agents Vitamin D3 25 mcg (1,000 unit) capsule 08-22 00:00: 00 Yes [id number] SUPPLEMENT 1 capsule DAILY 1 capsule DAILY (route: oral) Med Classific ation: Electroly te Balance-N utritiona l Products Vital Signs Vital Name Observation Time Observation Value Commen ts Temperature 2023-10-21 12:13:00.000 97.6 [degF] Temperature 2023-10-17 12:37:00.000 97.5 [degF] Temperature 2023-10-14 11:03:00.000 97.3 [degF] Temperature 2023-10-06 10:49:00.000 97.3 [degF] Temperature 2023-10-02 10:21:00.000 97.9 [degF] Temperature 2023-09-18 11:08:00.000 97.9 [degF] Temperature 2023-09-17 16:28:00.000 98 [degF] Temperature 2023-09-11 10:09:00.000 97.2 [degF] Temperature 2023-09-08 10:26:00.000 98.2 [degF] Temperature 2023-09-04 09:47:00.000 97.7 [degF] Temperature 2023-09-03 13:57:00.000 98.6 [degF] Temperature 2023-08-29 13:53:00.000 97.4 [degF] Temperature 2023-08-29 09:21:00.000 97.4 [degF] Temperature 2023-08-24 11:54:00.000 97.3 [degF] BMI (%) 2023-08-24 11:38:33.000 23 kg/m2 Height 2023-08-24 11:38:24.000 62 [in_us] Pulse 2023-10-21 12:13:00.000 67 /min Pulse 2023-10-17 12:37:00.000 78 /min Pulse 2023-10-14 11:03:00.000 79 /min Pulse 2023-10-06 10:49:00.000 77 /min Pulse 2023-10-02 10:21:00.000 79 /min Pulse 2023-09-18 11:08:00.000 72 /min Pulse 2023-09-17 16:28:00.000 72 /min Pulse 2023-09-11 10:09:00.000 68 /min Pulse 2023-09-08 10:26:00.000 73 /min Pulse 2023-09-04 09:47:00.000 72 /min Pulse 2023-09-03 13:57:00.000 68 /min Pulse 2023-08-29 13:53:00.000 73 /min Pulse 2023-08-29 09:21:00.000 72 /min Pulse 2023-08-24 11:54:00.000 68 /min O2 Saturation (%) 2023-10-21 12:13:00.000 97 % O2 Saturation (%) 2023-10-17 12:37:00.000 98 % O2 Saturation (%) 2023-10-14 11:03:00.000 98 % O2 Saturation (%) 2023-10-02 10:21:00.000 98 % O2 Saturation (%) 2023-09-17 16:28:00.000 95 % O2 Saturation (%) 2023-09-04 09:47:00.000 96 % O2 Saturation (%) 2023-08-29 09:21:00.000 99 % Respirations 2023-10-21 12:13:00.000 18 /min Respirations 2023-10-17 12:37:00.000 18 /min Respirations 2023-10-14 11:03:00.000 18 /min Respirations 2023-10-06 10:49:00.000 18 /min Respirations 2023-10-02 10:21:00.000 18 /min Respirations 2023-09-18 11:08:00.000 18 /min Respirations 2023-09-17 16:28:00.000 18 /min Respirations 2023-09-11 10:09:00.000 18 /min Respirations 2023-09-08 10:26:00.000 18 /min Respirations 2023-09-04 09:47:00.000 18 /min Respirations 2023-09-03 13:57:00.000 18 /min Respirations 2023-08-29 13:53:00.000 18 /min Respirations 2023-08-29 09:21:00.000 18 /min Respirations 2023-08-24 11:54:00.000 18 /min Weight (lbs) 2023-08-24 11:38:33.000 128 [lb_av] Systolic Blood Pressure 2023-10-21 12:13:00.000 120 mm [Hg] Systolic Blood Pressure 2023-10-17 12:37:00.000 138 mm [Hg] Systolic Blood Pressure 2023-10-14 11:03:00.000 120 mm [Hg] Systolic Blood Pressure 2023-10-06 10:49:00.000 114 mm [Hg] Systolic Blood Pressure 2023-10-02 10:21:00.000 120 mm [Hg] Systolic Blood Pressure 2023-09-18 11:08:00.000 122 mm [Hg] Systolic Blood Pressure 2023-09-17 16:28:00.000 140 mm [Hg] Systolic Blood Pressure 2023-09-11 10:09:00.000 128 mm [Hg] Systolic Blood Pressure 2023-09-08 10:26:00.000 122 mm [Hg] Systolic Blood Pressure 2023-09-04 09:47:00.000 130 mm [Hg] Systolic Blood Pressure 2023-09-03 13:57:00.000 130 mm [Hg] Systolic Blood Pressure 2023-08-29 13:53:00.000 128 mm [Hg] Systolic Blood Pressure 2023-08-29 09:21:00.000 126 mm [Hg] Systolic Blood Pressure 2023-08-24 11:54:00.000 122 mm [Hg] Diastolic Blood Pressure 2023-10-21 12:13:00.000 70 mm [Hg] Diastolic Blood Pressure 2023-10-17 12:37:00.000 76 mm [Hg] Diastolic Blood Pressure 2023-10-14 11:03:00.000 68 mm [Hg] Diastolic Blood Pressure 2023-10-06 10:49:00.000 72 mm [Hg] Diastolic Blood Pressure 2023-10-02 10:21:00.000 62 mm [Hg] Diastolic Blood Pressure 2023-09-18 11:08:00.000 70 mm [Hg] Diastolic Blood Pressure 2023-09-17 16:28:00.000 80 mm [Hg] Diastolic Blood Pressure 2023-09-11 10:09:00.000 60 mm [Hg] Diastolic Blood Pressure 2023-09-08 10:26:00.000 68 mm [Hg] Diastolic Blood Pressure 2023-09-04 09:47:00.000 68 mm [Hg] Diastolic Blood Pressure 2023-09-03 13:57:00.000 76 mm [Hg] Diastolic Blood Pressure 2023-08-29 13:53:00.000 76 mm [Hg] Diastolic Blood Pressure 2023-08-29 09:21:00.000 72 mm [Hg] Diastolic Blood Pressure 2023-08-24 11:54:00.000 68 mm [Hg] Plan of Treatment Planned Activity Planned Date Details Comments Future Scheduled Test MEDICATION MANAGEMENT; REGISTERED NURSE/LICENSED PRACTICAL NURSE TO REVIEW MEDICATIONS FOR INTERACTIONS, EFFECTIVENESS OF DRUG THERAPY, AND SIGNS/SYMPTOMS OF ADVERSE REACTIONS. MAY INSTRUCT AND REINFORCE MEDICATION TEACHING RELATED TO THE USE OF MEDICATIONS, DOSAGE, FREQUENCY, PURPOSE, SIDE EFFECTS, AND TO REPORT COMPLICATIONS. [code = MEDICATION MANAGEMENT; REGISTERED NURSE/LICENSED PRACTICAL NURSE TO REVIEW MEDICATIONS FOR INTERACTIONS, EFFECTIVENESS OF DRUG THERAPY, AND SIGNS/SYMPTOMS OF ADVERSE REACTIONS. MAY INSTRUCT AND REINFORCE MEDICATION TEACHING RELATED TO THE USE OF MEDICATIONS, DOSAGE, FREQUENCY, PURPOSE, SIDE EFFECTS, AND TO REPORT COMPLICATIONS.] Future Scheduled Test FALL REDUC TION MANAGEMENT; REGISTERED NURSE TO ASSESS AND TEACH/LICENSED PRACTICAL NURSE TO OBSERVE AND TEACH ON EDUCATION AND INTERVENTION TO IDENTIFY FALL RISK FACTORS SUCH MEDICATIONS THAT MAY CAUSE DIZZINESS, CHRONIC DISEASES, PSYCHOLOGICAL FACTORS, AND EMPOWER/EDUCATE PATIENT/CAREGIVER TO MINIMIZE FALL RISK. [code = FALL REDUCTION MANAGEMENT; REGISTERED NURSE TO ASSESS AND TEACH/LICENSED PRACTICAL NURSE TO OBSERVE AND TEACH ON EDUCATION AND INTERVENTION TO IDENTIFY FALL RISK FACTORS SUCH MEDICATIONS THAT MAY CAUSE DIZZINESS, CHRONIC DISEASES, PSYCHOLOGICAL FACTORS, AND EMPOWER/EDUCATE PATIENT/CAREGIVER TO MINIMIZE FALL RISK.] Future Scheduled Test GENITOURIN AMADO MANAGEMENT; REGISTERED NURSE TO ASSESS AND TEACH/LICENSED PRACTICAL NURSE TO OBSERVE AND TEACH RELATED TO ALTERED GENITOURINARY STATUS TO MINIMIZE COMPLICATIONS AND REDUCE HOSPITALIZATION. [code = GENITOURINARY MANAGEMENT; REGISTERED NURSE TO ASSESS AND TEACH/LICENSED PRACTICAL NURSE TO OBSERVE AND TEACH RELATED TO ALTERED GENITOURINARY STATUS TO MINIMIZE COMPLICATIONS AND REDUCE HOSPITALIZATION.] Future Scheduled Test URINARY TR ACT INFECTION MANAGEMENT; REGISTERED NURSELICENSED PRACTICAL NURSE TO PROVIDE SKILLED TEACHING AND SELF- CARE MANAGEMENT RELATED TO UTI TO MINIMIZE COMPLICATIONS AND REDUCE THE RISK OF HOSPITALIZATION. [code = URINARY TRACT INFECTION MANAGEMENT; REGISTERED NURSELICENSED PRACTICAL NURSE TO PROVIDE SKILLED TEACHING AND SELF- CARE MANAGEMENT RELATED TO UTI TO MINIMIZE COMPLICATIONS AND REDUCE THE RISK OF HOSPITALIZATION.] Future Scheduled Test RN TO OBSE RVE, ASSESS, EVALUATE, AND DEVELOP AN INDIVIDUALIZED PLAN OF CARE. AGENCY MAY ACCEPT ORDERS FROM CONSULTING PHYSICIANS REGISTERED NURSETO OBSERVE AND ASSESS/LICENSED PRACTICAL NURSE TO OBSERVE FOR RISK FOR FALLS AND INSTRUCT IN FALL PREVENTION, HOME SAFETY, MEDICATION MANAGEMENT, INFECTION PREVENTION, AND NUTRITION MANAGEMENT. REGISTERED NURSE/LICENSED PRACTICAL NURSE MAY PERFORM O2 SATURATION LEVEL ON ADMISSION AND PRN FOR RESP STATUS CHANGES FOR RN TO ASSESS/RESIDENT CARE TECHNICIAN TO OBSERVE PATIENT, WITH NOTIFICATION TO THE PHYSICIAN IF SATURATION IS 90% IN THE ABSENCE OF MORE SPECIFIC PARAMETERS FROM THE PHYSICIAN. AGENCY MAY PERFORM A RESUMPTION OF CARE VISIT FOLLOWING ANY HOSPITAL ADMISSION. REGISTERED NURSE/LICENSED PRACTICAL NURSE TO MONITOR CO-MORBID CONDITIONS LISTED ON THE PLAN OF CARE AND ANY NEW CONDITIONS THAT PRESENT THEMSELVES DURING THIS EPISODE TO IDENTIFY CHANGES AND INTERVENE TO MINIMIZE COMPLICATIONS. [code = RN TO OBSERVE, ASSESS, EVALUATE, AND DEVELOP AN INDIVIDUALIZED PLAN OF CARE. AGENCY MAY ACCEPT ORDERS FROM CONSULTING PHYSICIANS REGISTERED NURSETO OBSERVE AND ASSESS/LICENSED PRACTICAL NURSE TO OBSERVE FOR RISK FOR FALLS AND INSTRUCT IN FALL PREVENTION, HOME SAFETY, MEDICATION MANAGEMENT, INFECTION PREVENTION, AND NUTRITION MANAGEMENT. REGISTERED NURSE/LICENSED PRACTICAL NURSE MAY PERFORM O2 SATURATION LEVEL ON ADMISSION AND PRN FOR RESP STATUS CHANGES FOR RN TO ASSESS/RESIDENT CARE TECHNICIAN TO OBSERVE PATIENT, WITH NOTIFICATION TO THE PHYSICIAN IF SATURATION IS 90% IN THE ABSENCE OF MORE SPECIFIC PARAMETERS FROM THE PHYSICIAN. AGENCY MAY PERFORM A RESUMPTION OF CARE VISIT FOLLOWING ANY HOSPITAL ADMISSION. REGISTERED NURSE/LICENSED PRACTICAL NURSE TO MONITOR CO-MORBID CONDITIONS LISTED ON THE PLAN OF CARE AND ANY NEW CONDITIONS THAT PRESENT THEMSELVES DURING THIS EPISODE TO IDENTIFY CHANGES AND INTERVENE TO MINIMIZE COMPLICATIONS.] Future Scheduled Test PAIN MANAG EMENT; REGISTERED NURSE TO ASSESS AND TEACH/LICENSED PRACTICAL NURSE TO OBSERVE AND TEACH AND PROVIDE EDUCATION ON PAIN MANAGEMENT TECHNIQUES. [code = PAIN MANAGEMENT; REGISTERED NURSE TO ASSESS AND TEACH/LICENSED PRACTICAL NURSE TO OBSERVE AND TEACH AND PROVIDE EDUCATION ON PAIN MANAGEMENT TECHNIQUES.] Future Scheduled Test RISK FOR H OSPITALIZATION; REGISTERED NURSE TO ASSESS /TEACH, LICENSED PRACTICAL NURSE TO OBSERVE/TEACH PATIENT/CAREGIVER ON RISK FOR HOSPITALIZATION/EMERGENCY ROOM VISITS, TEACH SIGNS AND SYMPTOMS THAT PUT PATIENT AT RISK, WHEN TO NOTIFY NURSE/PHYSICIAN OF COMPLICATIONS/DECLINE, AND WHEN TO CALL 911. [code = RISK FOR HOSPITALIZATION; REGISTERED NURSE TO ASSESS /TEACH, LICENSED PRACTICAL NURSE TO OBSERVE/TEACH PATIENT/CAREGIVER ON RISK FOR HOSPITALIZATION/EMERGENCY ROOM VISITS, TEACH SIGNS AND SYMPTOMS THAT PUT PATIENT AT RISK, WHEN TO NOTIFY NURSE/PHYSICIAN OF COMPLICATIONS/DECLINE, AND WHEN TO CALL 911.] Future Scheduled Test CARDIOVASC ULAR SYSTEM; REGISTERED NURSE TO ASSESS /TEACH, LICENSED PRACTICAL NURSE TO OBSERVE/TEACH RELATED TO ALTERED CARDIOVASCULAR STATUS TO MINIMIZE COMPLICATIONS AND REDUCE HOSPITALIZATION. [code = CARDIOVASCULAR SYSTEM; REGISTERED NURSE TO ASSESS /TEACH, LICENSED PRACTICAL NURSE TO OBSERVE/TEACH RELATED TO ALTERED CARDIOVASCULAR STATUS TO MINIMIZE COMPLICATIONS AND REDUCE HOSPITALIZATION. ] Future Scheduled Test AGENCY MAY PERFORM A RESUMPTION OF CARE VISIT FOLLOWING ANY HOSPITAL ADMISSION. PT TO EVALUATE, OBSERVE / ASSESS, AND MONITOR, SIGNAL WIRER TO OBSERVE AND MONITOR, PROVIDE SKILLED THERAPEUTIC INTERVENTION, ACTIVITY, EDUCATION, AND TRAINING TO ADDRESS; PT/SIGNAL WIRER TO PROVIDE GAIT TRAINING FOR IMPROVED MOBILITY AND /OR TO NORMALIZE GAIT PATTERN NEUROMUSCULAR RE-EDUCATION / BALANCE / POSTURAL CONTROL (PT) THERAPEUTIC EXERCISES AND ESTABLISHING A HOME EXERCISE PROGRAM (PT/SIGNAL WIRER) PT/SIGNAL WIRER TO PROVIDE STAIR TRAINING PT / SIGNAL WIRER TO MONITOR AND EDUCATE ON OXYGEN SATURATION DURING ADLS/IADLS, NOTIFY PHYSICIAN AND/OR THE RN CLINICAL PANEL EDGE PAINTER FOR PHYSICIAN NOTIFICATION AND IF O2 SATS BELOW PHYSICIAN ORDERED PARAMETERS AFTER 10 MIN OF REST PT / SIGNAL WIRER TO MONITOR FOR SIGNS AND SYMPTOMS OF UTI AND EDUCATE PATIENT TO MINIMIZE RISK OF DEVELOPING A UTI. PT/SIGNAL WIRER TO IDENTIFY FALL RISK FACTORS; EDUCATE THE PATIENT/CAREGIVER ON WAYS TO REDUCE FALL RISK FACTORS AND ESTABLISH HOME EXERCISE PROGRAM TO MINIMIZE FALL RISK. MAY TEACH THE PATIENT FLOOR RECOVERY WHEN CLINICALLY APPROPRIATE PT / SIGNAL WIRER MAY EDUCATE ON PAIN MANAGEMENT CLINICALLY INDICATED, INCLUDING NON-PHARMACOLOGICAL PAIN REDUCTION TECHNIQUES [code = AGENCY MAY PERFORM A RESUMPTION OF CARE VISIT FOLLOWING ANY HOSPITAL ADMISSION. PT TO EVALUATE, OBSERVE / ASSESS, AND MONITOR, SIGNAL WIRER TO OBSERVE AND MONITOR, PROVIDE SKILLED THERAPEUTIC INTERVENTION, ACTIVITY, EDUCATION, AND TRAINING TO ADDRESS; PT/SIGNAL WIRER TO PROVIDE GAIT TRAINING FOR IMPROVED MOBILITY AND /OR TO NORMALIZE GAIT PATTERN NEUROMUSCULAR RE-EDUCATION / BALANCE / POSTURAL CONTROL (PT) THERAPEUTIC EXERCISES AND ESTABLISHING A HOME EXERCISE PROGRAM (PT/SIGNAL WIRER) PT/SIGNAL WIRER TO PROVIDE STAIR TRAINING PT / SIGNAL WIRER TO MONITOR AND EDUCATE ON OXYGEN SATURATION DURING ADLS/IADLS, NOTIFY PHYSICIAN AND/OR THE RN CLINICAL PANEL EDGE PAINTER FOR PHYSICIAN NOTIFICATION AND IF O2 SATS BELOW PHYSICIAN ORDERED PARAMETERS AFTER 10 MIN OF REST PT / SIGNAL WIRER TO MONITOR FOR SIGNS AND SYMPTOMS OF UTI AND EDUCATE PATIENT TO MINIMIZE RISK OF DEVELOPING A UTI. PT/SIGNAL WIRER TO IDENTIFY FALL RISK FACTORS; EDUCATE THE PATIENT/CAREGIVER ON WAYS TO REDUCE FALL RISK FACTORS AND ESTABLISH HOME EXERCISE PROGRAM TO MINIMIZE FALL RISK. MAY TEACH THE PATIENT FLOOR RECOVERY WHEN CLINICALLY APPROPRIATE PT / SIGNAL WIRER MAY EDUCATE ON PAIN MANAGEMENT CLINICALLY INDICATED, INCLUDING NON-PHARMACOLOGICAL PAIN REDUCTION TECHNIQUES ] Goal 2023-10-21 Patient Goal - TO GET STRONG ER Goal Provider Goal - PATIENT/CAREGIVER TO VERBALIZE, AND CONSISTENTLY DEMONSTRATE EFFECTIVE, SAFE MANAGEMENT OF MEDICATION INCLUDING KNOWLEDGE OF EFFECTIVENESS, POTENTIAL SIDE EFFECTS AND DRUG REACTIONS AND WHEN TO CONTACT THE APPROPRIATE CARE PROVIDER. PATIENT/CAREGIVER WILL BE ABLE TO VERBALIZE UNDERSTANDING OF MEDICATION REGIMEN AND ACCURATELY TAKE MEDICATIONS PRESCRIBED WITHOUT ADVERSE EFFECTS BY 10/22/23 Goal Provider Goal - PATIENT/CAREGIVER ABLE TO IDENTIFY FALL RISK FACTORS AND IMPLEMENT STRATEGIES TO MINIMIZE FALL RISK. PATIENT/CAREGIVER WILL VERBALIZE/DEMONSTRATE AN ABILITY TO ADHERE TO FALL REDUCTION SELF MANAGEMENT AND LIFE-STYLE CHANGES AT DISCHARGE. PERSONAL GOAL(S) STATED BY PATIENT/CAREGIVER WILL BE MET BY 10/22/23 Goal Provider Goal - PATIENT / CAREGIVER WILL VERBALIZE/DEMONSTRATE UNDERSTANDING OF MEASURES TO MANAGE ALTERED GENITOURINARY STATUS BY END OF EPISODE. Goal Provider Goal - PATIENT/CAREGIVER WILL VERBALIZE/DEMONSTRATE UNDERSTANDING OF CARE AND MANAGEMENT OF URINARY TRACT INFECTION BY 10/22/23 Goal Provider Goal - A PLAN OF CARE WILL BE ESTABLISHED THAT MEETS THE PATIENTS NEEDS. PATIENT WILL DEMONSTRATE OXYGEN SATURATION WITHIN NORMAL LIMITS OR PATIENTS OPTIMAL LEVEL ESTABLISHED BY THE PHYSICIAN THROUGHOUT CARE. CHANGES TO CO-MORBID CONDITIONS AND ANY NEW CONDITIONS WILL BE IDENTIFIED AND REPORTED TO THE PHYSICIAN. Goal Provider Goal - PATIENT / CAREGIVER WILL VERBALIZE / DEMONSTRATE UNDERSTANDING OF PAIN CONTROL MEASURES BY 10/22/23 Goal Provider Goal - PATIENT/CAREGIVER WILL VERBALIZE UNDERSTANDING OF SIGNS AND SYMPTOMS THAT PUT THE PATIENT AT RISK FOR HOSPITALIZATION /EMERGENCY ROOM VISITS, WHEN TO NOTIFY NURSE/PHYSICIAN OF COMPLICATIONS/DECLINE AND WHEN TO CALL 911. Goal Provider Goal - PATIENT / CAREGIVER WILL VERBALIZE/DEMONSTRATE UNDERSTANDING OF MEASURES TO MANAGE ALTERED CARDIOVASCULAR STATUS BY EOE Goal Provider Goal - PT LTG: PATIENT WILL DEMONSTRATE REDUCED GAIT DEVIATIONS TO REDUCE THE RISK FOR FALLING AND MINIMIZE STRAIN ON KNEES/HIPS AND BACK EVIDENCED BY IMPROVED HEEL STRIKE, ADEQUATE STEP LENGTH AND CONSISTENT FOOT CLEARANCE BILATERALLY USING WALKER TO WALK WITH INDEPENDENCE IN ORDER TO ACCESS ALL AREAS OF THE HOME WITHIN 6 WEEKS PT LTG: PATIENT WILL DEMONSTRATE REDUCED FALL RISK EVIDENCED BY IMPROVED SELF- SELECTED WALKING SPEED (SSWS CUT SCORE 0.6 TO 0.9 INDICATES MODERATE FALL RISK, 0.6 M/S INDICATES HIGH FALL RISK) FROM 0.6M/SEC TO 1.0M/SEC WITHIN 6 WEEKS PT LTG: PATIENT WILL DEMONSTRATE REDUCED FALL RISK EVIDENCED BY TUG TEST (CUT SCORE >11 SECONDS INDICATES INCREASED FALL RISK) IMPROVING FROM 30 SECONDS TO 15 SECONDS WITHIN 6 WEEKS PT STG: PATIENT WILL DEMONSTRATE INDEPENDENCE WITH LOWER EXTREMITY HOME EXERCISE PROGRAM WITHIN 4 WEEKS PT LTG: PATIENT WILL DEMONSTRATE IMPROVED FUNCTIONAL STRENGTH EVIDENCED BY FIVE TIMES SIT TO STAND TEST (CUT SCORE >12 SECONDS INDICATES AN INCREASED FALL RISK) IMPROVING FROM 35 SECONDS TO 14 SECONDS WITHIN 6 WEEKS PT LTG: PATIENT WILL DEMONSTRATE INCREASED STRENGTH OF BILATERAL LES FROM 3+/5 TO 4+/5 WITHIN 6 WEEKS IN ORDER TO IMPROVE SAFETY AND STABILITY WITH GAIT AND STAIRS PT LTG: PATIENT WILL DEMONSTRATE IMPROVED ABILITY TO SAFELY NEGOTIATE STAIRS FROM NT TO INDEPENDENT WITH RAILS IN ORDER TO SAFELY ENTER AND EXIT HOME WITHIN 6 WEEKS PT LTG: PATIENT WILL MAINTAIN OXYGEN SATURATION WITHIN PHYSICIAN ORDERED PARAMETERS THROUGHOUT EPISODE OF CARE. PT GOAL: PATIENT WILL NOT EXHIBIT SIGNS AND SYMPTOMS OF UTI. PT LTG: PATIENT/CAREGIVER WILL DEMONSTRATE ADHERENCE TO FALL REDUCTION SELF-MANAGEMENT AND REDUCING FALL RISK FACTORS TO MINIMIZE FALL RISK BY END OF EPISODE PT GOAL: PATIENT WILL DEMONSTRATE UNDERSTANDING OF PAIN MANAGEMENT TECHNIQUES EVIDENCED BY REDUCED PAIN Reason for Visit INDEPENDENT IN THE HOME Encounters Start Date/Time End Date/Time Encounter Type Admission Type Attending [facility] Care Department Encounter ID Discharge Date Discharge Status Discharge Condition Discharge Reason Percent Goals Met 2023-08-24 00:00:00 2023-10-21 00:00:00 Outpatient NEW ADMISSION [facility] [id number] 2023-10-21 00:00:00 DISCHARGE TO HOME OR SELF CARE INDEPENDEN T IN THE HOME HH OR PAL- GOALS MET 92.31
--- NOTE | 2024-01-24 19:02 | PC.NURSE ---
Bilateral crackles auscultated to lower lobes.
[2024-01-24 19:04] LABS: Influenza A PCR NEGATIVE (Negative); Influenza B PCR NEGATIVE (Negative); Resp Syncy Virus RNA Qual PCR NEGATIVE (Negative); SARS COV2 PCR INHOUSE POSITIVE (Negative)
--- NOTE | 2024-01-24 19:38 | MHC.EDTECH ---
This pct assumed care of Patient at 1900 ,vitals taken ,Patient was incontinent of urine ,Care given and bedding change ,warm blanket ,patient was reposition and boosted up in bed .
--- NOTE | 2024-01-24 20:46 | MHC.EDTECH ---
called [facility] looking for the CT scan done at 1730 they said they will do it next
[2024-01-24] MEDS: dexAMETHasone sod phosphate 10 MG/ML VIAL IVPUSH (22:12)
--- NOTE | 2024-01-24 22:32 | P.HPHOSP_ITS ---
History of Present Illness Date of Service: 01/24/24 Attending physician on admission: Angelica Olvera Chief Complaint: Weakness, lethargy Pt is an 88-year-old female with a PMH significant for?hypothyroidism and recurrent UTIs who presents to the ED with?weakness and cough for the past few days. Patient is a rather vague and imprecise historian, and presents as mildly confused, often repeating herself. Reports that she has been weak for the past few days and ?can not get around or do things?. Patient lives by herself but has a daughter that regularly helps her out with ADLs. Patient reports had a mostly nonproductive cough for the past few days as well. Also states and left lower abdominal pain sometime in the past though unclear exactly when this was. Patient currently is no longer experiencing any abdominal pain. Denies shortness or breath or difficulty breathing. No fever, chills, nausea, vomiting, diarrhea. Denies chest pain/pressure, palpitations. In the ED pt was mildly febrile at 100.3 and hypoxic as low as 86% on RA. Labs were significant for leukocytosis of 11.0 and testing positive for COVID, otherwise grossly unremarkable and baseline for patient. Stable H&H. No significant electrolyte abnormalities. Renal function baseline. UA positive for UTI. CXR showed bilateral patchy airspace disease new compared to prior, likely reflecting multifocal pneumonia. CT?of abdomen and pelvis negative for acute abnormality, though did show progressive degenerative changes of lumbar spine and grade 1 anterolisthesis of L5 on S1. Pt was treated with IVF, acetaminophen, ketorolac, ceftriaxone, azithromycin, and dexamethasone. Pt will be admitted to the hospital for treatment and further evaluation of acute hypoxic respiratory failure in the setting of COVID with superimposed multifocal pneumonia. Review of Systems 2 Review of Systems: Negative except for that which stated in the [facility] Medical History (Updated 01/24/24 @ 22:59 by THAO Garcia) Hypothyroidism Anxiety Social History Alcohol intake: never Patient Tobacco Use Status: Never used Tobacco Smoked in Last 30 Days: No Use of substances other than those prescribed or required for medical reasons: No Advance Directives: No Advance Directives Information Provided: No Meds Allergies Allergy/AdvReac Type Severity Reaction Status Date / Time Penicillins Allergy Rash Verified 01/24/24 18:02 Active Medications: Current Medications Azithromycin 500 mg/ Sodium (Chloride) 250 mls @ 125 mls/hr IV ONCE STA Stop: 01/25/24 00:27 Home Medications ?Medication ?Instructions ?Recorded ?Confirmed ?Last Taken ?Type alprazolam 0.5 mg tablet 0.5 mg PO BID 08/10/23 11/23/23 Unknown History levothyroxine 88 mcg tablet 88 mcg PO DAILY@0600 08/10/23 11/23/23 Unknown History trazodone 100 mg tablet 200 mg PO BEDTIME PRN Insomnia 08/10/23 11/23/23 Unknown History Physical Exam 2 Vital Signs and Narrative: Vital Signs: Last Vital Signs Temp 99.7 F 01/24/24 19:37 Pulse 65 01/24/24 22:11 Resp 16 01/24/24 22:11 BP 122/64 01/24/24 22:11 Pulse Ox 99 01/24/24 22:11 O2 Del Method Nasal Cannula 01/24/24 22:11 O2 Flow Rate 2 01/24/24 22:08 BMI result Body Mass Index 27.4 Constitutional: Alert, in no acute distress. Mental Status: Oriented to person, and time, not fully to situation or to place. Eyes: Pupils are equal, round, and reactive to light. Ear, Nose, and Throat: Oropharynx clear, mucous membranes moist. Ears and nose without deformities. Trachea midline. Respiratory: Clear to auscultation bilaterally. No wheezing, rales, or rhonchi. Pt noted to be coughing, particularly with deep inspiration. Cardiovascular: S1, S2 regular. No murmurs, rubs, or gallops. Gastrointestinal: Abdomen soft, non-tender, non-distended. Normal bowel sounds. Neurologic: Cranial nerves II-XII are grossly intact bilaterally. No focal neurological deficits. Moves all extremities spontaneously. Skin: Warm, dry. Extremities: No edema. Psychiatric: Normal mood and affect, pleasantly confused. Results Labs 01/24/24 17:44 01/24/24 17:44 Labs: Laboratory Results - last 24 hr 01/24/24 01/24/24 17:44 18:18 MCV 91.6 MCH 31.2 MCHC 34.1 RDW 13.0 Plt Count 437 H D MPV 9.3 L Immature Gran % (Auto) 0.6 H Neut % (Auto) 79.0 H Lymph % (Auto) 14.7 L [place] % (Auto) 4.7 Eos % (Auto) 0.6 Baso % (Auto) 0.4 Lymph # (Auto) 1.6 [place] # (Auto) 0.5 Eos # (Auto) 0.1 Baso # (Auto) 0.0 Abs Immat Gran (auto) 0.07 H Absolute Neuts (auto) 8.7 H Absolute Nucleated RBC 0.000 Nucleated RBC % (auto) 0.0 Anion Gap 15 Estim Creat Clear Calc 45.9 Estimated GFR > 60 Random Glucose 104 Lactic Acid 1.8 Calcium 8.5 D Magnesium 2.1 Total Bilirubin 0.4 AST 43 H ALT 6 Alkaline Phosphatase 73 Total Protein 7.7 Albumin 3.1 L Lipase 12 Urine Color Yellow Urine Appearance Cloudy Urine pH 6.5 Ur Specific [place] <= 1.005 Urine Protein Negative Urine Glucose (UA) Negative Urine Ketones Negative Urine Blood Trace H Urine Nitrite Negative Ur Leukocyte Esterase Large (3+) H Urine RBC 0-2 Urine WBC >50 H Ur Squamous Epith Cells 0-2 Urine Bacteria 4+ Hyaline Casts 0-2 Influenza Type A (PCR) NEGATIVE Influenza Type B (PCR) NEGATIVE RSV RNA Qual (PCR) NEGATIVE SARS-CoV-2 RNA (RT-PCR) POSITIVE A Imaging Radiologist's Impressions: Impressions Chest X-Ray 01/24/24 18:11 IMPRESSION: Bilateral patchy airspace disease new compared to prior. This could reflect multifocal pneumonia. Electronically signed by: Monico Nguyen MD 01/24/2024 08:37 PM EST RP Abdomen/Pelvis CT 01/24/24 18:27 IMPRESSION: 1. No acute abnormality. 2. Scattered diverticulosis without diverticulitis. 3. Prominent calcific atherosclerotic disease throughout the abdomen and pelvis. 4. Grade 1 anterolisthesis of L5 on S1 new compared to prior. Progressive degenerative changes of the lumbar spine. Fleischner guidelines were followed. Electronically signed by: Monico Nguyen MD 01/24/2024 09:09 PM EST RP Assessment and Plan (1) Hypoxia: Status: Acute (2) Multifocal pneumonia: Status: Acute Plan Pt is an 88-year-old female with a PMH significant for?hypothyroidism and recurrent UTIs who presents to the ED with?weakness and cough for the past few days. Pt will be admitted to the hospital for treatment and further evaluation of acute hypoxic respiratory failure in the setting of COVID with superimposed multifocal pneumonia. Acute hypoxic respiratory failure in the setting of COVID infection with superimposed multifocal pneumonia Patient desatting into the 80s on RA, COVID positive, CXR concerning for multifocal pneumonia No sepsis: No fever, tachycardia, tachypnea, or leukocytosis; lactic acid WNL at 1.8 Patient given IVF and started on broad-spectrum antibiotics in the ED Will treat with dexamethasone and ceftriaxone and azithromycin, started 01/24/2024 Titrate supplemental O2 >92, wean as tolerated Monitor respiratory status Generalized weakness In the setting of above PT consult Hypothyroidism Continue levothyroxine Anxiety Continue alprazolam Full Code Attending:?Dr. Anders DVT Prophylaxis: Heparin Pt will require a hospitalization of at least two nights for treatment of?acute hypoxic respiratory failure in the setting of COVID infection with superimposed multifocal pneumonia requiring IV steroids, IV antibiotics, and supplemental oxygen. Quality Stroke Does the patient have a stroke diagnosis?: No VTE Prior VTE?: No VTE Risk Level:: Medical - moderate - high VTE Device Contraindication: Treatment Not Indicated VTE Drug Contraindication: N/A - Med Ordered
[2024-01-24] MEDS: Azithromycin 500 MG in 0.9 % Sodium Chloride 250 ML 125 MG IV (22:36)
--- NOTE | 2024-01-25 01:00 | PC.NURSE ---
This technical writer assumed care of this Pt at 2300. Pt A&Ox3, denies any pain. IV ABX running per APR.
--- NOTE | 2024-01-25 04:45 | PC.NURSE ---
Purewick in place. Pt changed and reposition.
[2024-01-25 06:00] VITALS: BP 148/72; PULSE 60; RESP 14; TEMP 36.3; O2SAT 99
[2024-01-25 06:07] LABS: Anion Gap 12 (12-20); Blood Urea Nitrogen 7 mg/dL (9-16); Calcium 8.2 mg/dL (8.4-10.2); Carbon Dioxide 27 mmol/L (22-29); Chloride 104 mmol/L (96-108); Creatinine Clr Calc Pharmacy 54.2; Estimated Glomerular Filt Rate > 60; Glucose Random 152 mg/dL (60-115); Magnesium 2.1 mg/dL (1.6-2.6); Potassium 3.7 mmol/L (3.3-5.1); Sodium 139 mmol/L (135-145)
[2024-01-25 06:24] LABS: Basophils Percent Auto 0.4 % (0-2); Eosinophils Percent Auto 0.2 % (0-4); Hematocrit 32.2 % (37.0-47.0); Hemoglobin 11.1 g/dl (12.0-16.0); Imm Gran Abs Auto 0.04 X10*3/uL (0.00-0.03); Imm Gran Pct Auto 0.9 % (0.0-0.4); Lymphocytes Absolute Auto 0.7 X10*3/uL (1.2-4.9); Lymphocytes Percent Auto 15.5 % (20-40); MANUAL DIFF FLAG SCAN; Mean Corpuscular HGB Conc 34.5 g/dl (31.0-35.0); Mean Corpuscular Hemoglobin 31.7 pg (27.0-33.0); Mean Platelet Volume 9.5 fL (9.4-12.3); Monocytes Absolute Auto 0.1 X10*3/uL (0.1-1.2); Monocytes Percent Auto 1.7 % (2-11); Neutrophils Absolute Auto 3.7 x10*3/uL (2.0-8.3); Neutrophils Percent Auto 81.3 % (45-73); Platelet Count 359 X10*3/uL (160-400); Red Cell Distribution Width 13.2 % (11.0-16.0); SCAN SMEAR FLAG 1; White Blood Count 4.6 X10*3/uL (4.8-10.8)
[2024-01-25 07:33] LABS: SLIDE REVIEW VERIFIED
[2024-01-25 08:13] LABS: Procalcitonin 0.06 ng/mL
[2024-01-25] MEDS: Heparin Sodium,Porcine 5,000 UNIT/ML VIAL 5000 UNIT SUBCUT ×2 (08:29→20:08)
[2024-01-25] MEDS: dexAMETHasone sod phosphate 4 MG/ML VIAL 6 MG IVPUSH (08:29)
[2024-01-25] MEDS: 0.9 % Sodium Chloride Flush 3 ML SYRINGE IVFLUSH ×3 (08:30→22:37)
[2024-01-25 08:42] VITALS: BP 129/76; PULSE 61; RESP 18; O2SAT 98
--- NOTE | 2024-01-25 09:39 | PHA.MEDREC ---
Addendum entered by Casa Bright RPh 01/25/24 11:30: MED REC CHECKED BY [facility] Original Note: Pharmacy Consult ? Medication Reconciliation Pharmacy has completed the medication reconciliation. Spoke to pt's daughter to confirm meds.
--- NOTE | 2024-01-25 12:10 | HO.PM.IMPN ---
Subjective Subjective Date of Service: 01/25/24 Interval History: seen and examined this morning follow up for covid 19 awake, alert, eating breakfast; feeling much better, denies sob at this time Review of Systems Review of Systems: Yes all other systems are reviewed and are negative Constitutional Constitutional: Denies chills and Denies fever(s) Cardiovascular Cardiovascular: Denies chest pain, Denies palpitations and Denies dyspnea Respiratory Respiratory: Denies dyspnea Endocrine Endocrine: Denies palpitations Physical Exam Vital Signs: Vital Signs: Last Vital Signs Temp 97.4 F 01/25/24 06:00 Pulse 61 01/25/24 08:42 Resp 18 01/25/24 08:42 BP 129/76 01/25/24 08:42 Pulse Ox 98 01/25/24 08:42 O2 Del Method Nasal Cannula 01/25/24 08:42 O2 Flow Rate 2 01/25/24 08:42 BMI result Body Mass Index 27.4 Const: Other: frail elderly female sitting up in bed eating breakfast General: cooperative, comfortable, no acute distress, alert and awake Orientation/consciousness: oriented to person and oriented to place Resp: Other: diminished breath sounds Effort & Inspection: normal respiratory effort, able to speak in complete sentences, no respiratory distress and no use of accessory muscles Auscultation: no rhonchi and no wheezes Cardio: Rate: regular rate GI: Inspection: No distended Palpation (GI): Soft to palpation and nontender Neuro: General: oriented to person, oriented to place, moves all extremities and CN's II-XI intact bilaterally Extrem: General: Yes no pedal edema Objective Data Active Medications Acetaminophen (Acetaminophen 325 Mg Tablet) 975 mg PO Q6H PRN PRN Reason: Pain, Mild (Pain Scale 1-3), fever or headache Alprazolam (Alprazolam 0.5 Mg Tablet) 0.5 mg PO BID PRN PRN Reason: anxiety Ceftriaxone Sodium (Ceftriaxone Sodium 1 Gm Vial) 1 gm IVPUSH Q24H BHUPINDER Dexamethasone Sodium Phosphate (Dexamethasone Sod Phosphate 4 Mg/Ml Vial) 6 mg IVPUSH DAILY BHUPINDER Stop: 01/28/24 09:01 Last Admin: 01/25/24 08:29 Dose: 6 mg Documented By: OWEN Guaifenesin/Dextromethorphan (Guaifenesin Dm 200/20/10 Ml 10 Ml Syrup) 10 ml PO Q6H PRN PRN Reason: cough Heparin Sodium (Porcine) (Heparin Sodium,Porcine 5,000 Unit/Ml Vial) 5,000 unit SUBCUT Q12H [facility] Last Admin: 01/25/24 08:29 Dose: 5,000 unit Documented By: OWEN Azithromycin 500 mg/ Sodium (Chloride) 250 mls @ 125 mls/hr IV Q24H [facility] Levothyroxine Sodium (Levothyroxine Sodium 88 Mcg Tablet) 88 mcg PO DAILY@0600 [facility] Melatonin (Melatonin 3 Mg Tablet) 6 mg PO BEDTIME PRN PRN Reason: Insomnia Sodium Chloride (0.9 % Sodium Chloride Flush 3 Ml Syringe) 3 ml IVFLUSH QSHIFT [facility] Last Admin: 01/25/24 08:30 Dose: 3 ml Documented By: OWEN Labs 01/25/24 05:43 01/25/24 05:43 Labs: Laboratory Results - last 24 hr 01/24/24 01/24/24 01/25/24 17:44 18:18 05:43 MCV 91.6 92.0 MCH 31.2 31.7 MCHC 34.1 34.5 RDW 13.0 13.2 Plt Count 437 H D 359 MPV 9.3 L 9.5 Immature Gran % (Auto) 0.6 H 0.9 H Neut % (Auto) 79.0 H 81.3 H Lymph % (Auto) 14.7 L 15.5 L [place] % (Auto) 4.7 1.7 L Eos % (Auto) 0.6 0.2 Baso % (Auto) 0.4 0.4 Lymph # (Auto) 1.6 0.7 L [place] # (Auto) 0.5 0.1 Eos # (Auto) 0.1 0.0 Baso # (Auto) 0.0 0.0 Abs Immat Gran (auto) 0.07 H 0.04 H Absolute Neuts (auto) 8.7 H 3.7 Absolute Nucleated RBC 0.000 0.000 Nucleated RBC % (auto) 0.0 0.0 Smear Tech's Comments VERIFIED Anion Gap 15 12 Estim Creat Clear Calc 45.9 54.2 Estimated GFR > 60 > 60 Random Glucose 104 152 H Lactic Acid 1.8 Calcium 8.5 D 8.2 L Magnesium 2.1 2.1 Total Bilirubin 0.4 AST 43 H ALT 6 Alkaline Phosphatase 73 Total Protein 7.7 Albumin 3.1 L Lipase 12 Procalcitonin 0.06 Urine Color Yellow Urine Appearance Cloudy Urine pH 6.5 Ur Specific [place] <= 1.005 Urine Protein Negative Urine Glucose (UA) Negative Urine Ketones Negative Urine Blood Trace H Urine Nitrite Negative Ur Leukocyte Esterase Large (3+) H Urine RBC 0-2 Urine WBC >50 H Ur Squamous Epith Cells 0-2 Urine Bacteria 4+ Hyaline Casts 0-2 Influenza Type A (PCR) NEGATIVE Influenza Type B (PCR) NEGATIVE RSV RNA Qual (PCR) NEGATIVE SARS-CoV-2 RNA (RT-PCR) POSITIVE A Microbiology Microbiology Results: Microbiology 01/24/24 17:44 Urine Culture - Preliminary Urine Catheterized - Straight Catheter Gram negative sid Assessment and Plan (1) Pneumonia due to SARS-associated coronavirus: Status: Acute Plan This is an 88-year-old female with a PMH significant for?hypothyroidism and recurrent UTIs who presents to the ED with?weakness and cough found to be hypoxic and testing positive for COVID Acute hypoxic respiratory failure due to COVID pneumonia No sepsis continue decadron likely all viral due to covid as procalcitonin is low Titrate supplemental O2 >92, wean as tolerated UTI UA c/w UTI; pt asymptomatic previous culture enterobacter not sensitive to cephalosporins, will change to levaquin for now which will also cover for any possible bacterial component of pneumonia urine culture growing GNR - follow final culture results Generalized weakness In the setting of above PT consult Hypothyroidism Continue levothyroxine Anxiety Continue alprazolam Full Code DVT Prophylaxis: Heparin Pt will require a hospitalization of at least two nights for treatment of?acute hypoxic respiratory failure in the setting of COVID infection with superimposed multifocal pneumonia requiring IV steroids, IV antibiotics, and supplemental oxygen. Quality Stroke Does the patient have a stroke diagnosis?: No VTE Prior VTE?: No VTE Risk Level:: Medical - moderate - high VTE Device Contraindication: Treatment Not Indicated VTE Drug Contraindication: N/A - Med Ordered
[2024-01-25] MEDS: ALPRAZolam 0.5 MG TABLET PO ×2 (13:08→20:05)
[2024-01-25] MEDS: levoFLOXacin 500 MG TABLET PO (13:08)
--- NOTE | 2024-01-25 16:13 | PC.NURSE ---
rec call from pt sister and HCP- updated in plan of care
[2024-01-25 16:26] VITALS: BP 118/72; PULSE 74; RESP 21; TEMP 36.8; O2SAT 93
--- NOTE | 2024-01-25 19:33 | MHC.EDTECH ---
this tech assumed care @1900, the pt requested a meal in which another tech provided her with her meal tray. Pt currently eating her dinner and no other needs made aware at this time
[2024-01-25] MEDS: Melatonin 3 MG TABLET 6 MG PO (20:05)
--- NOTE | 2024-01-25 20:15 | PC.NURSE ---
pt medicated per APR for c/o increasing anxiety and insomnia. pt did not eat dinner, sts she doesnt feel much like eating . Offered pt food alternatives- chocolate ice cream requested and provided. pt repositioned and checked for comfort. warm blankets given. heparin admin in left upper arm. call james within reach. Pt awaiting bed assignment
[2024-01-25 22:58] VITALS: BP 148/69; PULSE 75; RESP 18; TEMP 36.6; O2SAT 97
[2024-01-25 22:59] VITALS: BMI 24.9
[2024-01-26 04:00] VITALS: BP 146/78; PULSE 79; RESP 18; TEMP 36.1; O2SAT 95
[2024-01-26] MEDS: Acetaminophen 325 MG TABLET 975 MG PO ×2 (04:48→17:31)
[2024-01-26] MEDS: Levothyroxine Sodium 88 MCG TABLET PO (04:52)
[2024-01-26 06:05] VITALS: RESP 16
[2024-01-26 07:39] VITALS: BP 140/71; PULSE 72; RESP 20; TEMP 37.1; O2SAT 97
[2024-01-26] MEDS: ALPRAZolam 0.5 MG TABLET PO ×2 (09:36→19:43)
[2024-01-26] MEDS: Heparin Sodium,Porcine 5,000 UNIT/ML VIAL 5000 UNIT SUBCUT ×2 (09:37→22:24)
[2024-01-26] MEDS: 0.9 % Sodium Chloride Flush 3 ML SYRINGE IVFLUSH ×3 (09:38→19:53)
[2024-01-26] MEDS: dexAMETHasone sod phosphate 4 MG/ML VIAL 6 MG IVPUSH (09:38)
--- NOTE | 2024-01-26 10:56 | MHC.CM.PN ---
Addendum entered by Rosa Swartz 01/26/24 15:36: HCP recieved and added to chart. Addendum entered by Rosa Swartz 01/26/24 13:15: correction, the pt.'s VNA is: Devin Original Note: IMM 01/26/24, Pt lives alone, her dtr Yesenia takes care of her. Pt was in [facility] recently, when to [facility] for STR, was home for a week or so prior to hosp. stay here. Pt. is confused, [place], CM spoke with her dtr. Yesenia. Yesenia is HCP, copy of doc requested. Yesenia said that pt. at her baseline is ambulatory with a walker. She has services from [facility] and [facility], homemaker and assistance once a week with personal care. They are waiting for EC to get a ramp for her home. Pt.s dtr said she does not want pt. to return to [facility] if STR is rec. PCP is Dr. Echols. DCP: home, resume services or STR. CM to follow for DC needs.
[2024-01-26 12:00] VITALS: BP 148/77; PULSE 73; TEMP 37; O2SAT 96
[2024-01-26] MEDS: levoFLOXacin 500 MG TABLET PO (12:50)
--- NOTE | 2024-01-26 13:50 | P.PNIM_ITS ---
Subjective Subjective Date of Service: 01/26/24 Interval History: Being followed for COVID-19 infection. Does not feel well, wants to lie down, denies pain, no cough, no fevers, no headache, no dizziness, no abdominal pain, no acute events overnight. Denies urinary symptoms of urgency or frequency Review of Systems All other system reviewed and are negative. Physical Exam 2 Vital Signs: Vital Signs: Last Vital Signs Temp 98.6 F 01/26/24 12:00 Pulse 73 01/26/24 12:00 Resp 20 01/26/24 07:39 BP 148/77 H 01/26/24 12:00 Pulse Ox 96 01/26/24 12:00 O2 Del Method Room Air 01/26/24 12:00 O2 Flow Rate 2 01/26/24 07:39 BMI result Body Mass Index 24.9 Const: Other: General resting comfortably in no acute distress. Neck no JVD. CVS regular rate rhythm, Respiratory lungs bilateral dry crackles right greater than left,no respiratory distress, no wheeze. Gastrointestinal abdomen soft, non tender, bowel sounds audible, no guarding , no rigidity. Extremities no edema. Neuro non focal , speech clear, oriented to place and person. Skin no rash Objective Data Active Medications Acetaminophen (Acetaminophen 325 Mg Tablet) 975 mg PO Q6H PRN PRN Reason: Pain, Mild (Pain Scale 1-3), fever or headache Last Admin: 01/26/24 04:48 Dose: 975 mg Documented By: MINNIE Alprazolam (Alprazolam 0.5 Mg Tablet) 0.5 mg PO BID PRN PRN Reason: anxiety Last Admin: 01/26/24 09:36 Dose: 0.5 mg Documented By: KEIRA Dexamethasone Sodium Phosphate (Dexamethasone Sod Phosphate 4 Mg/Ml Vial) 6 mg IVPUSH DAILY [facility] Stop: 01/28/24 09:01 Last Admin: 01/26/24 09:38 Dose: 6 mg Documented By: KEIRA Guaifenesin/Dextromethorphan (Guaifenesin Dm 200/20/10 Ml 10 Ml Syrup) 10 ml PO Q6H PRN PRN Reason: cough Heparin Sodium (Porcine) (Heparin Sodium,Porcine 5,000 Unit/Ml Vial) 5,000 unit SUBCUT Q12H [facility] Last Admin: 01/26/24 09:37 Dose: 5,000 unit Documented By: KEIRA Levofloxacin (Levofloxacin 500 Mg Tablet) 500 mg PO Q24H [facility] Last Admin: 01/26/24 12:50 Dose: 500 mg Documented By: KEIRA Levothyroxine Sodium (Levothyroxine Sodium 88 Mcg Tablet) 88 mcg PO DAILY@0600 [facility] Last Admin: 01/26/24 04:52 Dose: 88 mcg Documented By: MINNIE Melatonin (Melatonin 3 Mg Tablet) 6 mg PO BEDTIME PRN PRN Reason: Insomnia Last Admin: 01/25/24 20:05 Dose: 6 mg Documented By: ADRIAN Sodium Chloride (0.9 % Sodium Chloride Flush 3 Ml Syringe) 3 ml IVFLUSH QSHIFT [facility] Last Admin: 01/26/24 09:38 Dose: 3 ml Documented By: KEIRA Labs 01/25/24 05:43 01/25/24 05:43 Microbiology Microbiology Results: Microbiology 01/24/24 17:44 Urine Culture - Final Urine Catheterized - Straight Catheter Enterobacter cloacae complex 01/24/24 17:44 Blood Culture - Preliminary Blood - Venous No growth after 24 hours. 01/24/24 17:44 Blood Culture - Preliminary Blood - Venous No growth after 24 hours. Assessment and Plan (1) Pneumonia due to SARS-associated coronavirus: Status: Acute (2) Hypoxia: Status: Acute (3) Acute UTI: Status: Acute Plan 88-year-old female with a PMH significant for?hypothyroidism and recurrent UTIs who presents to the ED with?weakness and cough found to be hypoxic and testing positive for COVID Acute hypoxic respiratory failure due to COVID pneumonia No sepsis, no fevers continue decadron started on 01 24 through likely all viral due to covid as procalcitonin is low Titrate supplemental O2 >92, wean as tolerated, not on home oxygen Out of bed to chair/IS UTI UA c/w UTI; pt asymptomatic, WBC normalized Urine culture grew enterobacter sensitive to Cipro and not sensitive to cefazolin , continue Levaquin which will also cover for any possible bacterial component of pneumonia Blood cultures x2 negative Generalized weakness In the setting of above PT recommend short-term rehab Hypothyroidism Continue levothyroxine Anxiety Continue alprazolam Full Code DVT Prophylaxis: Heparin Pt will require continued inpatient hospitalization for treatment of?acute hypoxic respiratory failure in the setting of COVID infection with superimposed multifocal pneumonia requiring IV steroids, IV antibiotics, and supplemental oxygen. Quality Stroke Does the patient have a stroke diagnosis?: No VTE Prior VTE?: No VTE Risk Level:: Medical - moderate - high VTE Device Contraindication: Treatment Not Indicated VTE Drug Contraindication: N/A - Med Ordered
[2024-01-26 16:00] VITALS: BP 108/61; PULSE 67; RESP 18; TEMP 37.1; O2SAT 93
[2024-01-26 19:48] VITALS: BP 158/79; PULSE 81; RESP 19; TEMP 36.8; O2SAT 94
[2024-01-26] MEDS: guaiFENesin DM 200/20/10 ML 10 ML SYRUP PO (22:08)
[2024-01-26] MEDS: Melatonin 3 MG TABLET 6 MG PO (22:16)
[2024-01-27] VITALS (7 sets, daily range): BP systolic 139–157; BP diastolic 70–89; PULSE 76–95; RESP 18–20; TEMP 36.6–37.6; O2SAT 93–95
[2024-01-27] MEDS: Acetaminophen 325 MG TABLET 975 MG PO ×3 (04:16→22:00)
[2024-01-27] MEDS: Levothyroxine Sodium 88 MCG TABLET PO (05:36)
[2024-01-27] MEDS: ALPRAZolam 0.5 MG TABLET PO ×2 (08:42→18:32)
[2024-01-27] MEDS: dexAMETHasone sod phosphate 4 MG/ML VIAL 6 MG IVPUSH (08:45)
[2024-01-27] MEDS: guaiFENesin DM 200/20/10 ML 10 ML SYRUP PO (08:45)
[2024-01-27] MEDS: 0.9 % Sodium Chloride Flush 3 ML SYRINGE IVFLUSH ×3 (08:46→22:01)
[2024-01-27] MEDS: Heparin Sodium,Porcine 5,000 UNIT/ML VIAL 5000 UNIT SUBCUT ×3 (08:46→21:59)
[2024-01-27] MEDS: levoFLOXacin 500 MG TABLET PO (13:52)
--- NOTE | 2024-01-27 15:57 | P.PNIM_ITS ---
Subjective Subjective Date of Service: 01/27/24 Interval History: Being followed for COVID infection and UTI Pleasantly confused unable to retain information, does not know what is going on with her Denies shortness of breath, no urinary symptoms, stable oxygenation. No acute events overnight. Review of Systems Unable to obtain due to cognitive impairment. Physical Exam 2 Vital Signs: Vital Signs: Last Vital Signs Temp 99.3 F 01/27/24 11:46 Pulse 78 01/27/24 11:46 Resp 20 01/27/24 11:46 BP 157/86 H 01/27/24 11:46 Pulse Ox 95 01/27/24 11:46 O2 Del Method Room Air 01/27/24 11:46 O2 Flow Rate 2 01/27/24 04:00 BMI result Body Mass Index 24.9 Const: Other: General resting comfortably in no acute distress. Neck no JVD. CVS regular rate rhythm, Respiratory lungs bilateral dry crackles right greater than left,no respiratory distress, no wheeze. Gastrointestinal abdomen soft, non tender, bowel sounds audible, no guarding , no rigidity. Extremities no edema. Neuro non focal , speech clear, oriented to place and person. Skin no rash Objective Data Active Medications Acetaminophen (Acetaminophen 325 Mg Tablet) 975 mg PO Q6H PRN PRN Reason: Pain, Mild (Pain Scale 1-3), fever or headache Last Admin: 01/27/24 13:56 Dose: 975 mg Documented By: RADHA Alprazolam (Alprazolam 0.5 Mg Tablet) 0.5 mg PO BID PRN PRN Reason: anxiety Last Admin: 01/27/24 08:42 Dose: 0.5 mg Documented By: RADHA Dexamethasone Sodium Phosphate (Dexamethasone Sod Phosphate 4 Mg/Ml Vial) 6 mg IVPUSH DAILY BHUPINDER Stop: 01/28/24 09:01 Last Admin: 01/27/24 08:45 Dose: 6 mg Documented By: RADHA Guaifenesin/Dextromethorphan (Guaifenesin Dm 200/20/10 Ml 10 Ml Syrup) 10 ml PO Q6H PRN PRN Reason: cough Last Admin: 01/27/24 08:45 Dose: 10 ml Documented By: RADHA Heparin Sodium (Porcine) (Heparin Sodium,Porcine 5,000 Unit/Ml Vial) 5,000 unit SUBCUT Q12H [facility] Last Admin: 01/27/24 08:46 Dose: 5,000 unit Documented By: RADHA Levofloxacin (Levofloxacin 500 Mg Tablet) 500 mg PO Q24H [facility] Last Admin: 01/27/24 13:52 Dose: 500 mg Documented By: RADHA Levothyroxine Sodium (Levothyroxine Sodium 88 Mcg Tablet) 88 mcg PO DAILY@0600 [facility] Last Admin: 01/27/24 05:36 Dose: 88 mcg Documented By: PRICILA Melatonin (Melatonin 3 Mg Tablet) 6 mg PO BEDTIME PRN PRN Reason: Insomnia Last Admin: 01/26/24 22:16 Dose: 6 mg Documented By: PRICILA Sodium Chloride (0.9 % Sodium Chloride Flush 3 Ml Syringe) 3 ml IVFLUSH QSHIFT [facility] Last Admin: 01/27/24 14:01 Dose: 3 ml Documented By: RADHA Labs 01/25/24 05:43 01/25/24 05:43 Microbiology Microbiology Results: Microbiology 01/24/24 17:44 Blood Culture - Preliminary Blood - Venous No growth after 48 hours. 01/24/24 17:44 Blood Culture - Preliminary Blood - Venous No growth after 48 hours. Assessment and Plan (1) Pneumonia due to SARS-associated coronavirus: Status: Acute (2) Acute UTI: Status: Acute Plan 88-year-old female with a PMH significant for?hypothyroidism and recurrent UTIs who presents to the ED with?weakness and cough found to be hypoxic and testing positive for COVID Acute hypoxic respiratory failure due to COVID pneumonia No sepsis, no fevers continue decadron started on 01 24 through likely all viral due to covid as procalcitonin is low Titrate supplemental O2 >92, wean as tolerated, not on home oxygen Out of bed to chair/IS UTI UA c/w UTI; pt asymptomatic, WBC normalized Urine culture grew enterobacter sensitive to Cipro and not sensitive to cefazolin , continue Levaquin D3 which will also cover for any possible bacterial component of pneumonia Blood cultures x2 negative Generalized weakness In the setting of above PT recommend short-term rehab Hypothyroidism Continue levothyroxine Anxiety Continue alprazolam Full Code DVT Prophylaxis: Heparin Pt will require continued inpatient hospitalization for treatment of?acute hypoxic respiratory failure in the setting of COVID infection with superimposed multifocal pneumonia requiring IV steroids, IV antibiotics, and supplemental oxygen. Quality Stroke Does the patient have a stroke diagnosis?: No VTE Prior VTE?: No VTE Risk Level:: Medical - moderate - high VTE Device Contraindication: Treatment Not Indicated VTE Drug Contraindication: N/A - Med Ordered
[2024-01-27] MEDS: Melatonin 3 MG TABLET 6 MG PO (22:00)
[2024-01-28 03:53] VITALS: BP 139/76; PULSE 80; RESP 20; TEMP 36.7
[2024-01-28 08:00] VITALS: BP 134/71; PULSE 70; RESP 16; TEMP 36.7; O2SAT 97
[2024-01-28] MEDS: ALPRAZolam 0.5 MG TABLET PO ×2 (08:58→20:35)
[2024-01-28] MEDS: Heparin Sodium,Porcine 5,000 UNIT/ML VIAL 5000 UNIT SUBCUT ×2 (08:58→20:36)
[2024-01-28] MEDS: dexAMETHasone sod phosphate 4 MG/ML VIAL 6 MG IVPUSH (08:58)
[2024-01-28] MEDS: 0.9 % Sodium Chloride Flush 3 ML SYRINGE IVFLUSH (08:58)
--- NOTE | 2024-01-28 11:05 | MHC.CLN ---
RE; CONSULT ADDED MAGIC CUP BID R/T POOR PO MONITOR PO INTAKE CLOSELY
[2024-01-28] MEDS: ondansetron HCL 4 MG/2 ML VIAL IVPUSH (11:49)
[2024-01-28 12:00] VITALS: BP 130/76; PULSE 75; RESP 16; TEMP 36.9; O2SAT 94
[2024-01-28] MEDS: levoFLOXacin 500 MG TABLET PO (13:39)
--- NOTE | 2024-01-28 14:26 | MHC.CM.PN ---
Pt has been accepted at [facility], they are pursuing auth, pt. is ready when ins. auth comes in.
--- NOTE | 2024-01-28 15:37 | HO.PM.IMPN ---
Subjective Subjective Date of Service: 01/28/24 Interval History: Pleasantly confused feels unwell unable to further explain why. Denies fever chills, no acute events overnight afebrile stable blood pressure and oxygen. Review of Systems Cognitive impairment difficult to obtain review of system. Physical Exam Vital Signs: Vital Signs: Last Vital Signs Temp 98.5 F 01/28/24 12:00 Pulse 75 01/28/24 12:00 Resp 16 01/28/24 12:00 BP 130/76 01/28/24 12:00 Pulse Ox 94 01/28/24 12:00 O2 Del Method Nasal Cannula 01/28/24 08:00 O2 Flow Rate 2 01/28/24 08:00 BMI result Body Mass Index 24.9 Const: Other: General resting comfortably in no acute distress. Neck no JVD. CVS regular rate rhythm, Respiratory lungs bilateral dry crackles right greater than left,no respiratory distress, no wheeze, improved from yesterday Gastrointestinal abdomen soft, non tender, bowel sounds audible, no guarding , no rigidity. Extremities no edema. Neuro non focal , speech clear, oriented to place and person. Skin no rash Poor insight Objective Data Active Medications Acetaminophen (Acetaminophen 325 Mg Tablet) 975 mg PO Q6H PRN PRN Reason: Pain, Mild (Pain Scale 1-3), fever or headache Last Admin: 01/27/24 22:00 Dose: 975 mg Documented By: TERRY Alprazolam (Alprazolam 0.5 Mg Tablet) 0.5 mg PO BID PRN PRN Reason: anxiety Last Admin: 01/28/24 08:58 Dose: 0.5 mg Documented By: KEIRA Guaifenesin/Dextromethorphan (Guaifenesin Dm 200/20/10 Ml 10 Ml Syrup) 10 ml PO Q6H PRN PRN Reason: cough Last Admin: 01/27/24 08:45 Dose: 10 ml Documented By: RADHA Heparin Sodium (Porcine) (Heparin Sodium,Porcine 5,000 Unit/Ml Vial) 5,000 unit SUBCUT Q12H [facility] Last Admin: 01/28/24 08:58 Dose: 5,000 unit Documented By: KEIRA Levofloxacin (Levofloxacin 500 Mg Tablet) 500 mg PO Q24H [facility] Last Admin: 01/28/24 13:39 Dose: 500 mg Documented By: KEIRA Levothyroxine Sodium (Levothyroxine Sodium 88 Mcg Tablet) 88 mcg PO DAILY@0600 [facility] Last Admin: 01/28/24 06:22 Dose: Not Given Documented By: TERRY Non-Admin Reason: Patient Asleep Melatonin (Melatonin 3 Mg Tablet) 6 mg PO BEDTIME PRN PRN Reason: Insomnia Last Admin: 01/27/24 22:00 Dose: 6 mg Documented By: TERRY Ondansetron HCl (Ondansetron Hcl 4 Mg/2 Ml Vial) 4 mg IVPUSH Q8H PRN PRN Reason: Nausea Last Admin: 01/28/24 11:49 Dose: 4 mg Documented By: KEIRA Sodium Chloride (0.9 % Sodium Chloride Flush 3 Ml Syringe) 3 ml IVFLUSH QSHIFT [facility] Last Admin: 01/28/24 08:58 Dose: 3 ml Documented By: KEIRA Labs 01/25/24 05:43 01/25/24 05:43 Assessment and Plan (1) Pneumonia due to SARS-associated coronavirus: Status: Acute (2) Hypoxia: Status: Acute (3) Multifocal pneumonia: Status: Acute (4) Acute UTI: Status: Acute Plan 88-year-old female with a PMH significant for?hypothyroidism and recurrent UTIs who presents to the ED with?weakness and cough found to be hypoxic and testing positive for COVID Acute hypoxic respiratory failure due to COVID pneumonia No sepsis, no fevers Finished course of Decadron likely all viral due to covid as procalcitonin is low Titrate supplemental O2 >92, wean as tolerated, not on home oxygen Out of bed to chair/IS UTI UA c/w UTI; pt asymptomatic, WBC normalized Urine culture grew enterobacter sensitive to Cipro and not sensitive to cefazolin , continue Levaquin D4/5 which will also cover for any possible bacterial component of pneumonia Blood cultures x2 negative Generalized weakness In the setting of above PT recommend short-term rehab Hypothyroidism Continue levothyroxine Anxiety Continue alprazolam Full Code DVT Prophylaxis: Heparin Pt will require continued inpatient hospitalization for treatment of?acute hypoxic respiratory failure in the setting of COVID infection with superimposed multifocal pneumonia requiring IV steroids, IV antibiotics, and supplemental oxygen. And safe disposition. Quality Stroke Does the patient have a stroke diagnosis?: No VTE Prior VTE?: No VTE Risk Level:: Medical - moderate - high VTE Device Contraindication: Treatment Not Indicated VTE Drug Contraindication: N/A - Med Ordered
[2024-01-28 16:00] VITALS: BP 155/91; PULSE 92; RESP 18; TEMP 37.3; O2SAT 92
[2024-01-28 19:45] VITALS: BP 138/87; PULSE 89; RESP 14; TEMP 37.1; O2SAT 92
[2024-01-28] MEDS: guaiFENesin DM 200/20/10 ML 10 ML SYRUP PO (20:35)
[2024-01-28] MEDS: Melatonin 3 MG TABLET 6 MG PO (20:35)
[2024-01-28] MEDS: Acetaminophen 325 MG TABLET 975 MG PO (20:35)
[2024-01-28 23:33] VITALS: BP 119/66; PULSE 69; RESP 16; TEMP 36.6; O2SAT 94
[2024-01-29 03:33] VITALS: BP 131/63; PULSE 64; RESP 16; TEMP 36.2; O2SAT 95
[2024-01-29] MEDS: Acetaminophen 325 MG TABLET 975 MG PO (05:37)
[2024-01-29] MEDS: Levothyroxine Sodium 88 MCG TABLET PO (05:37)
[2024-01-29] MEDS: ondansetron HCL 4 MG/2 ML VIAL IVPUSH ×2 (05:44→13:05)
[2024-01-29] MEDS: 0.9 % Sodium Chloride Flush 3 ML SYRINGE IVFLUSH ×3 (05:54→09:11)
[2024-01-29 07:53] VITALS: BP 142/82; PULSE 61; RESP 18; TEMP 36.4; O2SAT 98
[2024-01-29] MEDS: Heparin Sodium,Porcine 5,000 UNIT/ML VIAL 5000 UNIT SUBCUT (08:55)
[2024-01-29 12:00] VITALS: BP 144/83; PULSE 79; RESP 18; TEMP 36.4; O2SAT 95
[2024-01-29] MEDS: levoFLOXacin 500 MG TABLET PO (13:05)
[2024-01-29 15:45] VITALS: BP 137/75; PULSE 76; RESP 17; TEMP 36.8; O2SAT 93
--- NOTE | 2024-01-29 16:06 | PM.DS ---
DS: Providers Provider Date of Service: 01/29/24 Date of admission: 01/24/24 22:33 Primary care physician: Tiff Horn MD DS: Diagnosis Discharge Diagnosis (1) Pneumonia due to SARS-associated coronavirus: Status: Acute (2) Hypoxia: Status: Acute (3) Multifocal pneumonia: Status: Acute (4) Acute UTI: Status: Acute DS: Summary Hospital Course Hospital Course: History of presenting illness: Date of Service: 01/24/24 Attending physician on admission: Angelica Olvera Chief Complaint: Weakness, lethargy Pt is an 88-year-old female with a PMH significant for?hypothyroidism and recurrent UTIs who presents to the ED with?weakness and cough for the past few days. Patient is a rather vague and imprecise historian, and presents as mildly confused, often repeating herself. Reports that she has been weak for the past few days and ?can not get around or do things?. Patient lives by herself but has a daughter that regularly helps her out with ADLs. Patient reports had a mostly nonproductive cough for the past few days as well. Also states and left lower abdominal pain sometime in the past though unclear exactly when this was. Patient currently is no longer experiencing any abdominal pain. Denies shortness or breath or difficulty breathing. No fever, chills, nausea, vomiting, diarrhea. Denies chest pain/pressure, palpitations. In the ED pt was mildly febrile at 100.3 and hypoxic as low as 86% on RA. Labs were significant for leukocytosis of 11.0 and testing positive for COVID, otherwise grossly unremarkable and baseline for patient. Stable H&H. No significant electrolyte abnormalities. Renal function baseline. UA positive for UTI. CXR showed bilateral patchy airspace disease new compared to prior, likely reflecting multifocal pneumonia. CT?of abdomen and pelvis negative for acute abnormality, though did show progressive degenerative changes of lumbar spine and grade 1 anterolisthesis of L5 on S1. Pt was treated with IVF, acetaminophen, ketorolac, ceftriaxone, azithromycin, and dexamethasone. Pt will be admitted to the hospital for treatment and further evaluation of acute hypoxic respiratory failure in the setting of COVID with superimposed multifocal pneumonia. Hospital course: 88-year-old female with a PMH significant for?hypothyroidism and recurrent UTIs who presents to the ED with?weakness and cough found to be hypoxic and tested positive for COVID Acute hypoxic respiratory failure due to COVID pneumonia, patient had no fevers, no sepsis, finished course of Decadron, procalcitonin was low likely all viral infection, hypoxia resolved recommend ambulation, symptomatic care with cough medication analgesics UTI UA c/w UTI; pt asymptomatic, WBC normalized, Urine culture grew enterobacter sensitive to Cipro and not sensitive to cefazolin , treated with 5 days of Levaquin finished course of antibiotic blood cultures x2 negative Generalized weakness In the setting of above, PT recommend short-term rehab Hypothyroidism Continue levothyroxine Anxiety Continue alprazolam Time Attestation Discharge Coordination Time (in mins): 40 Quality: Safe Use of Opioids Does Pt have an Active Cancer Diagnosis on the Problem List?: No Quality: Stroke Does the patient have a stroke diagnosis?: No Physical Exam Vital Signs: Vital Signs: Last Vital Signs Temp 98.2 F 01/29/24 15:45 Pulse 76 01/29/24 15:45 Resp 17 01/29/24 15:45 BP 137/75 01/29/24 15:45 Pulse Ox 93 01/29/24 15:45 O2 Del Method Room Air 01/29/24 15:45 O2 Flow Rate 1 01/29/24 03:33 BMI result Body Mass Index 24.9 Const: Other: General resting comfortably in no acute distress. Neck no JVD. CVS regular rate rhythm, Respiratory lungs bilateral dry crackles right greater than left,no respiratory distress, no wheeze Gastrointestinal abdomen soft, non tender, bowel sounds audible, no guarding , no rigidity. Extremities no edema. Neuro non focal , speech clear, oriented to place and person. Skin no rash Poor insight DS: Data Data Completed and Pending Labs on day of discharge: Preliminary micro results at discharge 01/24/24 17:44 Blood Culture - Preliminary Blood - Venous No growth after 48 hours. 01/24/24 17:44 Blood Culture - Preliminary Blood - Venous No growth after 48 hours. Discharge Plan Discharge Anticipated Discharge Date/Time: 01/29/24 16:04 Patient Disposition: Xfer SNF Discharge Diagnosis: Acute hypoxic respiratory failure due to COVID pneumonia UTI Referrals: Tiff Taylor MD [Primary Care Provider] - 1 Week Discharge Medications: New dextromethorphan-guaifenesin 10-100 mg/5 mL Syrup 10 ml PO Q6H PRN (Reason: cough) Qty: 237 0RF Continued alprazolam 0.5 mg tablet 0.5 mg PO BID levothyroxine 88 mcg tablet 88 mcg PO DAILY@0600 Changed trazodone 100 mg tablet 100 mg PO BEDTIME PRN (Reason: Insomnia) Qty: 1 0RF Discharge Orders: Discharge Order (Routine); Ordered 01/29/24 Ordered By: Nawaf Manrique Diet: Advance to usual diet Activity on Discharge: As tolerated Stand Alone Forms: Patient Portal Discharge page Print Language: [place] Care Plan Goals: Finished course of antibiotics monitor oxygenation/symptomatic treatment with cough medicine Health Concerns: Continue all medications as prescribed Plan of Treatment: Outpatient follow-up with primary care physician Assessment: As above
--- NOTE | 2024-01-29 16:11 | MHC.CM.PN ---
Second IMM 01/29/24, pt has been medically cleared for DC, she will go to [facility] via S today.
== END 2024-01-29 19:15 | disposition skilled nursing facility (03) | DRG 177 ==
LOC: HO.ED 22:18 → HO.EDOVER 22:40 → HO.IMC 01-25 21:11
PROVIDERS: Physician Assistant Medical; Admitting Provider Internal Medicine; Emergency Provider Emergency Medicine; PCP Internal Medicine; Visit Provider Hospitalist
DX: U07.1 COVID-19 (principal); J12.82 Pneumonia due to coronavirus disease 2019; J96.01 Acute respiratory failure with hypoxia; J15.9 Unspecified bacterial pneumonia; Z16.19 Resistance to other specified beta lactam antibiotics; B96.89 Other specified bacterial agents as the cause of diseases classified elsewhere; E03.9 Hypothyroidism, unspecified; F41.9 Anxiety disorder, unspecified; Z87.440 Personal history of urinary (tract) infections; Z79.890 Hormone replacement therapy; Z79.899 Other long term (current) drug therapy
CPT/HCPCS: 0241U; 36415; 71046; 74177; 80048; 80053; 81001; 83605; 83690; 83735; 84145; 85025; 87040; 87086; 87088; 87186; 97162; 97530; 99285; J0456; J0696; J1100; J1644; J1885; J2405; Q9967

== ENCOUNTER → 2024-01-24 22:33 | Outpatient (BNV) | payer MEDICARE, SELFPAY | PROVIDERS: Admitting Provider Internal Medicine; Emergency Provider Emergency Medicine; Visit Provider Student in an Organized Health Care Education/Training Program | DX: J12.81 Pneumonia due to SARS-associated coronavirus (principal); J96.01 Acute respiratory failure with hypoxia; N39.0 Urinary tract infection, site not specified | CPT/HCPCS: 99223; 99232; 99239 ==